=== PATIENT | male | born 1975 | race Caucasian/White ===

== ENCOUNTER 2016-12-09 16:58 | Observation (INO) | payer OTHER ==
[~2016-12-09] VITALS: Ht 167.6 cm; Wt 70.2 kg
--- NOTE | 2016-12-09 17:09 | ED.REPORT ---
HPI-Stroke / CVA Dec 09, 2016 ED Provider: Jesús Daniel MD Pt is a 40y.o. male with a hx of ESRD and [place] who presents to the ED from hemodialysis c/o slurred speech last known normal at 1530. Pt reports associated dysphasia. He denies taking blood thinners. Pt was unable to complete his hemodialysis treatment today due to his sx. Nursing Notes Stated Complaint: SPEECH PROBLEMS Nursing Notes Reviewed: Yes Allergies: Coded Allergies: No Known Allergies (Unverified , 12/09/16) Scheduled Amlodipine (Amlodipine) 5 Mg Tablet 5 MG PO BID (Reported) Aspirin (Aspirin) 81 Mg Tablet 81 MG PO DAILY (Reported) Atorvastatin (Lipitor) 40 Mg Tablet 40 MG PO DAILY (Reported) Calcium Acetate (Calcium Acetate) 667 Mg Capsule 667 MG PO TID (Reported) Calcium Carbonate/Vitamin D3 (Calcium 600 + Vit D3 400 Tab) 600 Mg-400 Tablet 1 EACH PO DAILY (Reported) Carvedilol (Carvedilol) 12.5 Mg Tablet 12.5 MG PO BID (Reported) Clopidogrel (Clopidogrel) 75 Mg Tablet 75 MG PO DAILY (Reported) Isosorbide MN ER (Isosorbide MN ER) 30 Mg Tab.er.24h 30 MG PO DAILY (Reported) Prednisone (PredniSONE) 20 Mg Tablet 40 MG PO DAILY (Reported) Ranitidine (Ranitidine) 150 Mg Capsule 150 MG PO HS (Reported) Scheduled PRN hydrOXYzine Hcl (HydrOXYzine Hcl) 25 Mg Tablet 25 MG PO BID PRN PRN For Itching (Reported) oxyCODONE-Acetaminophen 5-325 mg (oxyCODONE-Acetaminophen 5-325 mg) 1 Each Tablet 1-2 TAB PO TID PRN PRN For Pain (Reported) Miscellaneous Medications Febuxostat (Uloric) 40 Mg Tablet 40 MG PO (Reported) General Time Seen by Provider: 17:02 Chief Complaint Slurred speech Hx Obtained From: Patient Arrived By: Walk-in Time last known well 1530 Sudden in Onset?: Yes Progression Since Onset: Gradually improving Severity: Current: No pain currently Recent Healthcare: No recent hospitalization Similar Sx Previous: No Risk Factors NIH Stroke Scale Level of Consciousness: Alert and responsive (0) Ask Month & Age: Both questions right (0) Open/Close Eyes/Hand Eligibility Consultant: Performs both tasks (0) Horizontal EO Movements: None (0) Visual Olivera: No visual loss (0) Facial Palsy: Normal symmetry (0) Right Arm Motor Drift (10s): No drift 10 sec (0) Left Arm Motor Drift (10s): No drift 10 sec (0) Right Leg Motor Drift (5s): No drift 5 sec (0) Left Leg Motor Drift (5s): No drift 5 sec (0) Limb Ataxia FNF/Heel-Perla: No ataxia (0) Sensation (Arms/Legs/Face): No sensory loss (0) Language Aphasia: Loss fluency ID matls (1) Dysarthria: No dysarthria, normal (0) Extinction/Inattention: No exctinct/inattent (0) NIHSS Score: 1 Time NIHSS Performed: 17:12 Date NIHSS Performed: Dec 09, 2016 Past Medical History Past Medical History ESRD on hemodialysis [place] x2 Social History Other Social History: Good social support Ambulatory Status Independent Review of Systems Dysphasia Neurologic: Reports: Slurred speech Complete sys rev & neg: except as marked. Physical Exam Initial Vital Signs Vital Signs (First) Date Time Temp Pulse Resp B/P Pulse Ox O2 Delivery O2 Flow Rate FiO2 12/09/16 17:12 36.9 99 24 142/87 100 Room Air Initial VS: Reviewed Abdomen / GI: Soft, Non-tender, No distention Extremities: Vascular intact, Neuro intact Skin: Warm, Dry, No cyanosis General/Constitutional: Awake, Alert, No acute distress, Well appearing, Well developed, Well hydrated, Well nourished, Not toxic appearing Head / Eyes: Atraumatic, Normocephalic, PERRL Neck: Atraumatic Respiratory / Chest: Atraumatic, Breath sounds NL, Breath sounds = bilat, No respiratory distress, No rales, No rhonchi, No wheezing, No retractions, No stridor Cardiovascular: Heart rate NL, Regular rhythm, Heart sounds NL, No gallop, No murmurs, No rubs, Peripheral circulation NL Neurologic: Oriented X3, No motor deficits, No sensory deficits, CN II - XII intact Interpretation & Diagnostics PROCEDURE: CT ANGIO BRAIN NECK TPA IMPRESSION: Normal examination, findings called to the emergency room physician caring for the patient at this time. Dictated by: Jabier Jackson M.D. on 12/09/2016 at 19:05 Approved by: Jabier Jackson M.D. on 12/09/2016 at 19:08 Lab Results Interpretation Result Diagram: 12/09/16 1717 12/09/16 1717 Test 12/09/16 17:17 12/09/16 17:20 12/09/16 19:10 White Blood Count 7.6th/mm3 (3.8-10.1) Red Blood Count 3.81mil/mm3 (4.40-5.80) Hemoglobin 10.9g/dL (13.8-17.2) Hematocrit 35.8% (41.0-50.0) Mean Corpuscular Volume 94.0fL (81-100) Mean Corpuscular Hemoglobin 28.6pg (27.0-35.0) Mean Corpuscular Hemoglobin Concent 30.4% (32.0-37.0) Red Cell Distribution Width 16.9% (12.3-15.4) Platelet Count 236bil/L (150-400) Neutrophils (%) (Auto) 81% (40-74) Lymphocytes (%) (Auto) 10% (14-46) Monocytes (%) (Auto) 2% (4-12) Eosinophils (%) (Auto) 3% (0-5) Basophils (%) (Auto) 1% (0-3) Band Neutrophils % 1% (1-5) Myelocytes % 2% (0-0) Nucleated Red Blood Cells 1/100 WBC (0-24) Prothrombin Time 11.2sec (8.1-12.5) Prothromb Time International Ratio 1.05ratio Activated Partial Thromboplast Time 29.4sec (22.8-33.0) Sodium Level 134mEq/L (134-144) Potassium Level 4.6mEq/L (3.5-5.2) Chloride Level 96mEq/L (97-108) Carbon Dioxide Level 19mmol/L (18-29) Blood Urea Nitrogen 61mg/dL (6-24) Creatinine 6.07mg/dL (0.76-1.27) Estimat Glomerular Filtration Rate 11mL/min (>59) Glucose Level 245mg/dL (60-99) Calcium Level 8.3mg/dL (8.5-10.1) Total Bilirubin 0.2mg/dL (0.0-1.2) Aspartate Amino Transf (AST/SGOT) 17U/L (0-50) Alanine Aminotransferase (ALT/SGPT) 31U/L (0-44) Alkaline Phosphatase 145U/L (25-150) Total Protein 6.0g/dL (6.4-8.4) Albumin 3.3g/dL (3.4-5.0) Hold Purple Top Tube Received (Received) Hold Blue Top Tube Received (Received) Hold Red Top Tube Received (Received) Hold [place] Top Tube Received (Received) Hold [place] Top Tube Received (Received) Urine Color Yellow (YELLOW) Urine Appearance Clear (CLEAR,HAZY) Urine pH 7.0 (5.0-8.0) Urine Specific [place] 1.015 (1.003-1.035) Urine Protein 100mg/dL (NEG,TRACE) Urine Glucose (UA) 250mg/dL (NEGATIVE) Urine Ketones Negativemg/dL (NEGATIVE) Urine Occult Blood Trace (NEGATIVE) Urine Nitrite Negative (NEGATIVE) Urine Bilirubin Negative (NEGATIVE) Urine Urobilinogen Normalmg/dL (NORMAL) Urine Leukocyte Esterase Negative (NEGATIVE) Urine RBC 0-2/hpf (0-2) Urine WBC 0-5/hpf (0-5) Urine Epithelial Cells None/hpf (NONE-MOD) Urine Crystals None seen (NONE SEEN) Urine Bacteria Few/hpf (NONE-FEW) Urine Hyaline Casts None/lpf (NONE) Urine Granular Casts None seen (NONE SEEN) Urine Waxy Casts None seen (NONE SEEN) Urine Red Blood Cell Casts None seen (NONE SEEN) Urine White Blood Cell Casts None seen (NONE SEEN) Urine Mucus None seen (None Seen) Urine Trichomonas None seen (NONE SEEN) Urine Yeast None (NONE SEEN) Urinalysis Comment None Urine Culture Reflexed Not indicated ECG Interpretation ECG Interpretation: Peak T-waves V1-V3 T-wave inversion V2-V3 Time: 17:34 Interpreted by: ED physician Normal ECG Interpretation: Normal rate (99), Normal sinus rhythm CT Head Interpretation IMPRESSION: Normal for age. This information was immediately called to the emergency room physician caring for the patient at 17:20. This study fulfills neurological imaging criteria for inclusion or exclusion of acute stroke therapies based on available published neurological imaging guidelines. Dictated by: Jabier Jackson M.D. on 12/09/2016 at 17:19 Approved by: Jabier Jackson M.D. 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 Patient was sent over for evaluation immediately. Code stroke called immediately. CT brain normal. NIH stroke scale 1 for difficulty with word-finding, expressing self. [place] neurology consulted immediately who recommended not TPA candidate given low NIH stroke scale. CT angiogram brain and neck no acute pathology. Glucose 200s. Troponins 0.02. Discussed with cardiology who recommended aspirin and trending troponins. Discussed with nephrology and they will perform dialysis tomorrow. Patient admitted to hospital for CVA. Cannot r/o dialysis related. Patient's symptoms significantly improved at time of transfer and he believed he was at his baseline. Source of Hx: Old records Re-Evaluation/Progress : Time of Eval: 19:23 Re-Evaluation/Progress Note: Pt rechecked. Discussed dx and plan to admit, pt understands and agrees with plan. Pt is full code. Consultation #1: Consulted With: Neurology Call Returned at: 17:23 Note: Consulted with [place] neurology, Dr. Johnson. Determined pt is not a TPA candidate and recommended a CTA. Consultation #2: Referral / Consult Name: Suki Garza MD Consulted With: Cardiology Call Returned at: 19:15 Note: Consulted with Dr. Garza about elevated troponin. Consultation #3: Referral / Consult Name: Vu De Leon MD Consulted With: Nephrology Call Returned at: 19:17 Die Cast Die Maker: Will see patient, Agrees with eval Note: Discussed pt condition and need for dialysis, will see pt tomorrow. Consultation #4: Referral / Consult Name: Moises Tamez MD Consulted With: Hospitalist Call Returned at: 19:31 Die Cast Die Maker: Will see patient, Agrees with eval, Agrees with plan, Accepts admit Note: Discussed pt condition and consults. Accepts admit. Counseled Regarding: Diagnosis, Lab results, Need for follow-up, When/why to return to ED Patient Discharge & Departure Impression: Primary Impression: CVA (cerebral vascular accident) Additional Impression: ESRD (end stage renal disease) on dialysis Disposition: ADMITTED TO HOSPITAL Discharge Condition All VS Reviewed: Yes Condition: Stable Referrals: Lis Sandoval MD (PCP) Crit Care Except Billable Proc Time Spent: 30-74 minutes Services Performed: Patient management by me, Time spent at bedside, Reviewing test results, Reviewing imaging, Discussing patient care, Documentation in record, Time with fam/surrogate Scribe Attestation Portions of this note were transcribed by Milena Caldwell. I, Dr. Daniel personally performed the history, physical exam and medical decision-making; I reviewed and confirmed the accuracy of the information in the transcribed note. Signed by: Abhijit Valadez, 12/09/16 and 2227. copies to: Lis Sandoval MD, Ben M MD Dec 09, 2016 17:09 MILENA CALDWELL Dec 09, 2016 17:16
[2016-12-09 17:12] VITALS: BP 142/87; PULSE 99; RESP 24; O2SAT 100
--- NOTE | 2016-12-09 17:22 | DRSVH ---
PROCEDURE: CT BRAIN (TPA) ([id number]) INDICATIONS: Stroke TECHNIQUE: Noncontrast 4.5 mm thick angled axial sections acquired from the foramen magnum to the vertex, with c oronal reformats. COMPARISON: None. FINDINGS: Image quality: Excellent. CSF spaces: Basal cisterns are patent. No extra-axial fluid collections. Ventricles are normal in size and shape. Brain: No midline shift. No intracranial masses or hemorrhage. Knapp-white matter interface is norm al. Skull and face: Calvarium and visualized facial bones are intact, without suspicious lesions. Sinuses: Visualized sinuses and mastoids are clear. IMPRESSION: Normal for age. This information was immediately called to the emergency room physician caring for the patient at 17: 20. This study fulfills neurological imaging criteria for inclusion or exclusion of acute stroke therapie s based on available published neurological imaging guidelines. Dictated by: Jabier Jackson M.D. on 12/09/2016 at 17:19 Approved by: Jabier Jackson M.D. on 12/09/2016 at 17:20
[2016-12-09 17:33] VITALS: BP 139/74; PULSE 64; O2SAT 98
[2016-12-09 17:41] LABS: Mean Corpuscular Hemoglobin 28.6 pg (27.0-35.0); Platelet Count 236 bil/L (150-400)
[2016-12-09] MEDS ORDERED: CALC667C9 PO (17:50)
[2016-12-09] MEDS ORDERED: ASPI-973 PO (17:50)
[2016-12-09 17:51] LABS: INR 1.05 ratio
[2016-12-09] MEDS ORDERED: CARV12.52 PO (17:51)
[2016-12-09 18:01] LABS: TROPONIN T 0.027 ug/L (0.0-0.011)
[2016-12-09 18:09] LABS: BASOPHILS % (AUTO) 1 % (0-3); EOSINOPHILS % (AUTO) 3 % (0-5); MONOCYTES % (AUTO) 2 % (4-12); NEUTROPHILS % (AUTO) 81 % (40-74)
[2016-12-09] MEDS ORDERED: OXYC1TAB24 PO (18:12)
[2016-12-09] MEDS ORDERED: PRE20 PO (18:20)
[2016-12-09] MEDS ORDERED: RANI150C4 PO (18:20)
[2016-12-09] MEDS ORDERED: ISOS30TA4 PO (18:20)
[2016-12-09] MEDS ORDERED: AMLO5TAB2 PO (18:20)
[2016-12-09] MEDS ORDERED: FEBU40TA PO (18:20)
[2016-12-09] MEDS ORDERED: CALC-1034 PO (18:20)
[2016-12-09] MEDS ORDERED: LIP40 PO (18:20)
[2016-12-09] MEDS ORDERED: CLOP75TA28 PO (18:20)
[2016-12-09] MEDS ORDERED: HYDR-656 PO (18:20)
[2016-12-09 18:31] VITALS: BP 150/88; PULSE 108; RESP 15; O2SAT 100
--- NOTE | 2016-12-09 19:09 | DRSVH ---
PROCEDURE: CT ANGIO BRAIN NECK TPA INDICATIONS: STAT READ - CALL ED PROVIDER W/RESULTS TECHNIQUE: Pre-contrast 4.5 mm thick sections acquired from the foramen magnum to the vertex. After the adminis tration of intravenous contrast, 1 mm thick sections acquired from the aortic arch through the [place] of [place]hl. Post-contrast 4.5 mm thick sections then re-acquired from the foramen magnum to the vert ex. 3-dimensional jzarpui-bwbcslidp-eplivboaqp (MIP) and/or volume rendering reformats were acquired of the central intracranial vasculature and neck separately. For radiation dose reduction, the foll owing was used: automated exposure control, adjustment of mA and/or kV according to patient size. COMPARISON: None. FINDINGS: Image quality: Excellent. BRAIN: CSF spaces: Ventricles are normal in size and shape. Basal cisterns are patent. No extra-axial flu id collections. Brain: No midline shift. No intracranial bleeds or masses. Knapp-white matter interface appears int act. Skull and face: Calvarium and facial bones appear intact, without suspicious lesions. Orbits appear normal. Sinuses: Sinuses and mastoids are clear. HEAD CT ANGIOGRAPHY: Anterior circulation: Intracranial internal carotid arteries are normal in size and flow. The flow within the paired anterior cerebral arteries is normal and symmetric. The flow within the middle cer ebral arteries is normal and symmetric. The anterior communicating artery is seen. No aneurysms are seen. Posterior circulation: Visualized portions of the vertebral arteries demonstrate normal caliber, and join to form a normal appearing basilar artery. Flow within the posterior cerebral arteries is norm al and symmetric. No aneurysms are seen. NECK CT ANGIOGRAPHY: Carotid system: The great vessels demonstrate a conventional anatomy as they arise from the aortic a rch. The origins of the common carotid arteries appear patent. The common carotid arteries demonstr ate normal caliber and courses. The bifurcation regions are both widely patent. The internal caroti d arteries demonstrate normal calibers and courses. Posterior circulation: The origins of the vertebral arteries both appear widely patent. The more goodwin perior extracranial portions of both vertebral arteries also demonstrate normal courses and calibers. They join to form a normal appearing basilar artery. Soft tissues: Visualized neck soft tissues demonstrate no suspicious abnormalities. Bones: No suspicious bony lesions. Visualized cervical spine appears normally aligned. IMPRESSION: Normal examination, findings called to the emergency room physician caring for the patie nt at this time. Dictated by: Jabier Jackson M.D. on 12/09/2016 at 19:05 Approved by: Jabier Jackson M.D. on 12/09/2016 at 19:08
[2016-12-09 19:30] VITALS: BP 149/90; PULSE 102; RESP 23; O2SAT 99
[2016-12-09 19:44] LABS: APPEARANCE,URINE CLEAR (CLEAR,HAZY); COLOR,URINE YELLOW (YELLOW); OCCULT BLOOD,URINE TRACE (NEGATIVE); UROBILINOGEN,URINE NORMAL (NORMAL)
[2016-12-09] MEDS ORDERED: Labetalol 5 mg/mL 4 mL Inj IVPUSH PRN (20:20)
[2016-12-09] MEDS ORDERED: Alum-Mag Hydrox-Simeth 30 mL Suspension PO PRN (20:20)
[2016-12-09] MEDS ORDERED: Polyethylene Glycol (PEG) 17 Gm Powder PO PRN (20:20)
[2016-12-09] MEDS ORDERED: Ondansetron 2 mg/mL 2 mL Inj IV PRN (20:20)
[2016-12-09] MEDS ORDERED: hydrOXYzine Pamoate 25 mg Capsule PO PRN (21:20)
[2016-12-09] MEDS ORDERED: oxyCODONE-Acetamin 5-325 mg Tablet PO PRN (21:20)
--- NOTE | 2016-12-09 21:24 | PCM.HPMED ---
Subjective Date of Service Dec 09, 2016 Primary Provider: Admitting Physician: Moises Tamez MD Primary Care Physician: Lis Sandoval MD Attending Physician: Moises Tamez MD Chief Complaint: Aphasia History of Present Illness: Patient is a 40 year old male with a history of ESRD on HD, HTN, CAD and gout. He presented to [facility] on 12/09/16 from the Dialysis Center. He reports that he began having aphasia around 3:30 PM. He describes it as having the words in his brain but having great difficulty saying them aloud. His speech was also reportedly slurred. He took [facility] to the dialysis center from his home. Once there the nurses also noted his difficulty speaking. The concern was that he was having a stroke so he was brought to the ED for further work-up (no HD done). He denies facial droop, weakness in the extremities, numbness, dysphagia. He has not been ill lately. He denies headache, vision changes, chest pain, abdominal pain, nausea, vomiting, diarrhea. He has chronic lower extremity edema and reports that has not been worse in the last week or so. Patient has a hereditary kidney disorder but cannot specifically name it. He has been on HD for about three weeks. Currently, has a right tunneled catheter for access with plans for fistula consultation on December 19, 2016. In the ED the patient is afebrile with heart rate 99, respiratory rate 24, blood pressure 142/87, and O2 saturation 100% on room air. Labs remarkable for hemoglobin 10.9, BUN 61, creatinine of 6.07, blood glucose 245, and troponin 0.027. CT/CTA done from the ED with no acute abnormality noted. Patient's symptoms improved in the ED. Case discussed via telemedicine with [place] and patient was not a tPA candidate. Patient admitted to complete stroke work-up. Will get dialysis tomorrow with orders from Dr. Hawkins. Review of Systems: A comprehensive review of systems was conducted with the patient and found to be negative except as above in the history of present illness. Allergies Coded Allergies: No Known Allergies (Unverified , 12/09/16) Home Medications Verified with bottles: Amlodipine 5 mg BID Aspirin 81 mg daily Atorvastatin 40 mg daily Calcium acetate 667 mg TID Calcium carbonate/Vitamin D3 600/400 mg tablet daily Carvedilol 12.5 mg BID Plavix 75 mg daily Uloric 40 mg daily Hydroxyzine 25 mg BID PRN itching Isosorbide mononitrate ER 30 mg daily Oxycodone-acetaminophen 5/325 mg TID PRN pain Prednisone 40 mg daily Ranitidine 150mg HS PMH ESRD on HD Hereditary kidney disease (no more specific information could currently be obtained) Hypertension Gout CAD with [place] August 2016 - medical management Surgical History Tunneled catheter placement (October 2016) Family History No known family history of stroke Mom - of complications of CHF Dad - CAD/[place] Social History Hx Alcohol Use: No Hx Substance Use: No Hx Tobacco Use: Yes Smoking Status: Former Smoker (Quit 20+ years ago; smokes one cigar per year) Living Arrangement: with Family (, 3 kids) Exam Vital Signs Vital Sign - Last Date Time Temp Pulse Resp B/P Pulse Ox O2 Delivery O2 Flow Rate FiO2 12/09/16 19:30 102 23 149/90 99 Room Air 12/09/16 18:31 37.0 Exam Alert and oriented x3, no acute distress Head atraumatic, normocephalic PERRLA, EOMI, sclera anicteric Mucus membranes moist, no oral thrush observed No cervical lymphadenopathy, neck supple, nontender No JVD noted Cardiac tones regular rate and rhythm with no murmur appreciated Lungs clear to auscultation bilaterally with adequate respiratory effort No abdominal tenderness, non-distended, normoactive bowel tones, soft Guevara absent Radial pulses normal and equivalent bilaterally, dorsalis pedis pulses normal and equivalent bilaterally No cyanosis, clubbing; Mild pitting edema in both lower extremities No ulcerations/open wounds Cranial nerves appear to be fully intact, normal speech, Lab and Diagnostics Result Diagram: 12/09/167 12/09/16 1717 X-Rays, CTs and MRIs CT Brain: IMPRESSION: Normal for age. This information was immediately called to the emergency room physician caring for the patient at 17:20. This study fulfills neurological imaging criteria for inclusion or exclusion of acute stroke therapies based on available published neurological imaging guidelines. Dictated by: Jabier Jackson M.D. on 12/09/2016 at 17:19 CTA Head and Neck: IMPRESSION: Normal examination, findings called to the emergency room physician caring for the patient at this time. Dictated by: Jabier Jackson M.D. on 12/09/2016 at 19:05 12-lead ECG Rate: 99 QTc: 457 Sinus rhythm, no acute ischemic changes noted Assessment & Plan Patient is a 40 year old male with a history of ESRD on HD, HTN, CAD and gout. He presented to [facility] on 12/09/16 from the Dialysis Center. 1. Aphasia, acute, present on admission. - Possible CVA/TIA. - CT brain and CTA head/neck with no acute abnormality. - MR stroke protocol ordered and pending. - Patient reports recent echo at [facility] (October 2016). Have asked for those records. Will not yet order echo until we get records. Please follow up in AM. - Full dose aspirin ordered. - Continue atorvastatin 40 mg HS. - Physical therapy, speech therapy, and occupational therapy ordered and pending. 2. ESRD on HD, chronic. - Secondary to hereditary kidney disease. - HD not completed today - // is usual schedule. - Dr. Hawkins has been consulted and we appreciate her consultation. 3. Hypertension, chronic, presume stable. - Continue amlodipine 5 mg BID starting tomorrow AM. 4. CAD, chronic, presume stable. - Medical management. - Continue statin, Plavix 75 mg daily, carvedilol 12.5 mg BID, Isosorbide mononitrate ER 30 mg daily. 5. Gout, chronic, presume stable. - Continue Uloric 40 mg daily, prednisone 40 mg daily. 6. GERD, chronic, presume stable. - Continue ranitidine 150 mg HS. 7. Elevated troponin, acute, present on admission. - May be elevated secondary to ESRD. No complaints of chest pain or SOB. EKG reassuring with no acute ischemic changes. - Trending troponin. - Repeat EKG if any concerning chest pain arises. - Antiemetic available PRN. - Bowel regimen available PRN. - Hydroxyzine 25 mg BID PRN itching - Oxycodone-acetaminophen 5/325 mg TID PRN pain Patient admitted under observation status with expected length of stay less than 2 midnights for severity of present symptoms, complexities of treatment plan and risk for adverse events. PCP: to establish care with Lis Sandoval MD VTE Prophylaxis: SCDs Resuscitation Status: CPR: Attempt Resuscitation Attending Statement The patient was seen and examined together with Dr. Willis on 12/09 and I agree with the history, exam and plan as outlined in the note above. copies to: Lis Sandoval MD, Jennifer E DO Dec 09, 2016 20:43 Moises Tamez MD Dec 10, 2016 00:48
[2016-12-09 23:45] VITALS: PULSE 88
--- NOTE | 2016-12-09 23:50 | NUR ---
Admission pt arrived to 3031 around 23:50 from the ED. A&Ox3, denies pain. Neuro assessment significant for mumbled speech at times, pt able to use correct word, but it does take a little time to annunciate. no other neuro deficits assessed. VSS, afebrile, on Ra. call light placed within reach. Med Rec completed prior to pt arriving to [facility]. home meds sent to pharmacy.
[2016-12-10 00:17] VITALS: BP 136/79; PULSE 89; RESP 18; O2SAT 98
[2016-12-10 04:47] VITALS: BP 127/84; PULSE 78; RESP 18; O2SAT 97
[2016-12-10 07:13] LABS: Mean Corpuscular Hemoglobin 29.1 pg (27.0-35.0); Mean Corpuscular Volume 94.7 fL (81-100); Platelet Count 225 bil/L (150-400)
[2016-12-10 07:43] LABS: TROPONIN T 0.03 ug/L (0.0-0.011)
[2016-12-10 07:58] LABS: Magnesium 1.8 mg/dL (1.6-2.6); Phosphorus 4.4 mg/dL (2.5-4.9)
[2016-12-10 08:23] LABS: BASOPHILS % (AUTO) 1 % (0-3); EOSINOPHILS % (AUTO) 1 % (0-5); MONOCYTES % (AUTO) 8 % (4-12); NEUTROPHILS % (AUTO) 66 % (40-74)
[2016-12-10] MEDS ORDERED: VITAMIN D3 PO SCH (08:30)
[2016-12-10] MEDS ORDERED: Isosorbide Mononitrate 30 mg ER24 Tablet PO SCH (08:30)
[2016-12-10] MEDS ORDERED: [UNRECOGNIZED DRUG - OTHER] PO SCH (08:30)
[2016-12-10] MEDS ORDERED: predniSONE 20 mg Tablet PO SCH (08:30)
[2016-12-10] MEDS ORDERED: CALCIUM CARBONATE PO SCH (08:30)
--- NOTE | 2016-12-10 08:58 | NUR ---
Neuro, labs results, off floor for dialysis Patient's speech is clear this AM, no slurring or word searching noted. Lab reports creat is 6.49 this AM. Patient off floor at 0835 to [facility] for dialysis. Chart with patient, bus driver/monitor aware, AM meds held per rigger.
--- NOTE | 2016-12-10 09:03 | DRSVH ---
PROCEDURE: MRI BRAIN WITHOUT CONTRAST ([id number]) INDICATIONS: Aphasia - concern for CVA TECHNIQUE: Noncontrast axial T1 spin echo, axial T2 fast spin echo, sagittal and axial FLAIR, coronal T2 fast sp in echo, axial gradient echo, axial diffusion and ADC through the brain. COMPARISON: [facility], CT, BRAIN (TPA), 12/09/2016, 17:07. FINDINGS: Image quality: Excellent. CSF Spaces: Basal cisterns are patent. No extra-axial fluid collections. Ventricles are normal in size and shape. Brain: No intracranial masses or hemorrhage. Knapp/white matter interface is normal. Brainstem appe ars normal. Diffusion-weighted images demonstrate no acute ischemic insult. No chronic ischemic ins ults. Normal intravascular flow voids are present. Skull and face: Calvarium has normal marrow signal. Orbits appear normal. Sinuses: Sinuses and mastoids are clear. IMPRESSION: 1. No acute intracranial disease process. 2. No areas of acute or chronic infarction. 3. No intracranial hemorrhage. Dictated by: Jana Talley MD, PhD on 12/10/2016 at 8:55 Approved by: Jana Talley MD, PhD on 12/10/2016 at 9:02
--- NOTE | 2016-12-10 13:31 | PCM.CHPMED ---
Subjective Date of Service: Dec 10, 2016 Primary Physician: Admitting Physician: Moises Tamez MD Primary Care Physician: Lis Sandoval MD Attending Physician: Moises Tamez MD Chief Complaint: Chief Complaint: ESRD on HD. . History of Present Illness: Nephrology Consultation Note: Attending Dr. Hawkins Dusty Tobin is a 40-year-old male with a past medical history significant for chronic kidney disease recently over the last month advanced to end-stage renal disease on hemodialysis, hypertension, coronary artery disease status post MD medically managed, and gout who presented to [facility] ED on 12/09/2016 from the dialysis center for aphasia, trouble with word finding, and TIA like symptoms. He began having aphasia around 3:30 PM on 12/09/16 and it lasting several hours. He reports an inability to say the words he was thinking and some slurred speech. He took Dial-a-Ride to the dialysis center from his home. Once there the nurses also noted his difficulty speaking. The concern was that he was having a stroke so he was brought to the ED for further work-up without hemodialysis. He denies weakness, difficulty with coordination or balance, facial droop, headache, blurred vision, double vision, dysphagia, chest pain, numbness or tingling in upper extremities or jaw, shortness of breath, nausea, vomiting, fever, or chills. He has not been recently ill. He has chronic lower extremity edema and reports that has not been worse in the last week or so. In the ED, the patient is afebrile with heart rate 99, respiratory rate 24, blood pressure 142/87, and O2 saturation 100% on room air. Labs remarkable for hemoglobin 10.9, BUN 61, creatinine of 6.07, blood glucose 245, and troponin 0.027. CT/CTA done from the ED with no acute abnormality noted. Patient's symptoms improved in the ED. Case discussed via telemedicine with Malaysian and patient was not a tPA candidate. In regards to his chronic kidney disease, he reports that this began at the age of 17. He believes it is hereditary as his mother also had chronic kidney disease. She reports a renal biopsy in 1992 for which he is unsure of the diagnosis made at that time. He recently had a right tunneled catheter placed in October and has been on hemodialysis for approximately 3 weeks. He has plans for a fistula consultation on December 19, 2016. He denies chronic NSAID use. He reports long-standing history of hypertension since the age of 11. He reports that he has been told he was diabetic in the past but that another doctor told him he was not diabetic and he is on no medications for diabetes. He denies rashes. He does have gouty joint disease of the right third MCP and left elbow. . Review of Systems: A comprehensive review of systems was conducted with the patient and found to be negative except as above in the History of Present Illness. . PMH Past Medical History 1. Hypertension. 2. CAD status post MD August 2016 which was medically managed. 3. Gout. 4. 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 5. End-stage renal disease on HD (Friday//Friday). . Bedside Blood Glucose: 228 Surgical History 1. Reconstructive lip surgery as a toddler. 2. Renal biopsy 1992. 3. Tunnel catheter placement October 2016. . Home Medications Amlodipine 5 mg twice a day. Aspirin 81 mg daily. Atorvastatin 40 mg daily. Calcium acetate 667 mg 3 times a day. Calcium carbonate/Vitamin D3 600/400 mg tablet daily. Carvedilol 12.5 mg twice a day. Plavix 75 mg daily. Uloric 40 mg daily. Hydroxyzine 25 mg twice a day as needed for itching. Isosorbide mononitrate ER 30 mg daily. Oxycodone-acetaminophen 5/325 mg 3 times a day as needed for pain. Prednisone 40 mg daily. Ranitidine 150mg daily at bedtime. . Allergies: Coded Allergies: No Known Allergies (Unverified , 12/09/16) Family History Family History Mother who had chronic kidney disease and of complications secondary to CHF in her 60s. Father who had coronary artery disease, MD, and secondary to metastatic pancreatic carcinoma and his 80s. He has two brothers whose medical history is unknown as they do not see a physician regularly. . Social History Hx Alcohol Use: NoHx Substance Use: NoHx Tobacco Use: Yes Smoking Status: Former Smoker (1 ppd x 1 year) Living Arrangement: with Family (, 3 children) Exam Vital Signs Vital Sign - Last Date Time Temp Pulse Resp B/P Pulse Ox O2 Delivery O2 Flow Rate FiO2 12/10/16 04:47 36.4 78 18 127/84 97 12/09/16 19:30 Room Air Intake and Output 12/09/16 12/09/16 12/10/16 Cumulative From/Thru 15:00 23:00 07:00 12/09/16 16:58 - 12/10/16 06:14 Intake Total 460 ml 460 ml Balance 460 ml 460 ml Intake Oral 460 ml 460 ml # Voids 3 3 General: Alert, Oriented X3, Cooperative, No Acute Distress, Other ( chronically ill-appearing) Head: Normal Eyes: PERRLA, EOMI, Scleral Anicteric Nose: Mucous Membr Moist/[place] Mouth: Mouth Normal Neck: Supple, No Thyromegaly Chest & Lungs: Clear to auscultation & percussion, No adventitious breath sounds Cardiovascular: Regular Rate/Rhythm, Normal S1, Normal S2, No Murmurs/Rubs/ Gallops Pulses: NL carotid, radial, femoral, DP, PT Abdomen: Non-tender, Non-distended, No masses, No hepatosplenomegaly, Soft Genitourinary: Guevara Absent Musculoskeletal: Unremarkable, Normal Range of Motion Extremities: No cyanosis/clubbing/edma bilat, Normal bilaterally, Other ( tophus of the third MCP, warm with mild erythema) Neurological: Grossly Neurologically Intact, Cranial Nerves 2-12 Intact, Sensation Intact Lab and Diagnostics Labs Item Value Date Time Calcium Level 8.2 mg/dL L 12/10/16 07 Phosphorus Level 4.4 mg/dL 12/10/16 0700 Magnesium Level 1.8 mg/dL 12/10/16 0700 Result Diagram: 12/10/16 0700 12/10/16 07 X-Rays, CTs and MRIs MRI BRAIN WITHOUT CONTRAST IMPRESSION: 1. No acute intracranial disease process. 2. No areas of acute or chronic infarction. 3. No intracranial hemorrhage. Dictated by: Jana Talley MD, PhD on 12/10/2016 at 8:55 Approved by: Jana Talley MD, PhD on 12/10/2016 at 9:02 CT ANGIO BRAIN NECK TPA IMPRESSION: Normal examination, findings called to the emergency room physician caring for the patient at this time. Dictated by: Jabier Jackson M.D. on 12/09/2016 at 19:05 Approved by: Jabier Jackson M.D. on 12/09/2016 at 19:08 CT BRAIN (TPA) IMPRESSION: Normal for age. This information was immediately called to the emergency room physician caring for the patient at 17:20. This study fulfills neurological imaging criteria for inclusion or exclusion of acute stroke therapies based on available published neurological imaging guidelines. Dictated by: Jabier Jackson M.D. on 12/09/2016 at 17:19 Approved by: Jabier Jackson M.D. on 12/09/2016 at 17:20 . Assessment & Plan Assessment Dusty Tobin is a 40-year-old male with a past medical history significant for chronic kidney disease recently over the last month advanced to end-stage renal disease on hemodialysis, hypertension, coronary artery disease status post MD medically managed, and gout who presented to [facility] ED on 12/09/2016 from the dialysis center for aphasia, trouble with word finding, and TIA like symptoms. Assessment: 1. ESRD (of unknown origin) on HD. 2. TIA. Resolved. 3. Long-standing hypertension with likely hypertensive nephrosclerosis. Plan: - Patient will receive dialysis today. - Request records from renal biopsy performed in [place], [place]. Although rare may consider possible Fabry's disease as patient has early onset renal failure and heart disease. The patient denies neuropathy. - Ordered hemoglobin A1c, pending. . Problems: VTE Prophylaxis: SCDs VTE Mechanical Devices: Intermittant Pneumatic CD Resuscitation Status: CPR: Attempt Resuscitation Mely Perez DO Dec 10, 2016 13:31
--- NOTE | 2016-12-10 14:13 | PCM.DIMED ---
Discharge Instructions Date of Service Dec 10, 2016 Dates of Hospitalization Dec 09, 2016 at 19:44 Discharge Diagnosis Discharge Diagnosis TIA Diet Heart Healthy, Renal Diet Activity No restrictions Patient Instructions you were hospitalized with slurred speech, concerning for stroke. work-ups including CT of brain, CT angiogram, MRI of brain, telemetry all showed no evidence of stroke. Please note that if you have recurrent symptoms, severe degree this are warning signs of impending stroke, please return to hospital for further evaluation. Follow-up plan Please follow up with your doctor, Dr.Lin Sandoval as scheduled tomorrow Follow-up with PCP in: 1 week Queta Velazquez MD Dec 10, 2016 14:13
--- NOTE | 2016-12-10 14:42 | NUR ---
Evaluation completed. Please go to "Notes" then click on "Assessments and Notes" (bottom left corner of screen). Then select appropriate discipline tab on top of screen.
[2016-12-10 14:54] VITALS: BP 130/81; PULSE 92; RESP 18; O2SAT 100
--- NOTE | 2016-12-10 14:55 | NUR ---
STOCK REPLENISHER consult received. Pt passed RN swallow screen, and imaging (i.e., MRI and CT) was negative for infarct. Diet has been advanced by MD and discharge orders are in. STOCK REPLENISHER will sign off. Please reconsult if needed.
--- NOTE | 2016-12-10 14:58 | NUR ---
Social work-screening/discharge: Data:EMR reviewed. Pt is a 40 y/o male who was admitted on 12/09/16 for CVA per H&P. Pt's insurance is [facility] and PCP is Lis Sandoval MD. EMR reviewed. Pt resides at home where he remains independent with ADLs. PT/OT/ST have cleared pt for home no needs. Pt to discharge home today. No discharge need identified. All updated and agreeable to plan. Assessment:Pt who is independent at baseline. Plan:Pt to discharge home today via POV. No discharge need identified. All updated and agreeable to plan. LALO Chand
--- NOTE | 2016-12-10 15:57 | NUR ---
Dialysis note 4 hr HD tx. 4000ml net UF removed per pt request. See DTR for complete vitals. R tunn catheter. Dsg c/d/i. Pt stable thru tx. Dwelled with 1000/1 U Heparin and returned to floor after report given.
--- NOTE | 2016-12-10 17:34 | NUR ---
DISCHARGE Patient discharged home at 1720, off floor by wheelchair accompanied by RN. Meds returned from pharmacy. Two IVs discontinued intact. All belongings accompany patient. All instructions for diet, activity, medications and follow-up reviewed with patient who reports understanding. Vitals stable, denies pain and in no apparent distress.
--- NOTE | 2016-12-11 13:56 | PCM.DC.MED ---
Discharge Summary Date of Service Dec 10, 2016 Dates of Hospitalization Date of Hospital Admission Dec 09, 2016 at 19:44 Date of Discharge: Dec 10, 2016 Providers: Admitting Physician: Moises Tamez MD Primary Care Physician: Lis Sandoval MD Attending Physician: Moises Tamez MD Diagnosis at Time of Discharge Diagnosis at Time of Discharge 1. Aphasic episode, presumed TIA 2. ESRD on HD, 3. Hypertension, 4. CAD, 5. Gout, 6. GERD 7. Mild troponinemia, Procedures XRay, CTs & MRIs CT Brain: IMPRESSION: Normal for age. This information was immediately called to the emergency room physician caring for the patient at 17:20. This study fulfills neurological imaging criteria for inclusion or exclusion of acute stroke therapies based on available published neurological imaging guidelines. Dictated by: Jabier Jackson M.D. on 12/09/2016 at 17:19 CTA Head and Neck: IMPRESSION: Normal examination, findings called to the emergency room physician caring for the patient at this time. Dictated by: Jabier Jackson M.D. on 12/09/2016 at 19:05 ECG 12 Lead Rate: 99 QTc: 457 Sinus rhythm, no acute ischemic changes noted Other Diagnostics PROCEDURE: MRI BRAIN WITHOUT CONTRAST ([id number]) INDICATIONS: Aphasia - concern for CVA TECHNIQUE: Noncontrast axial T1 spin echo, axial T2 fast spin echo, sagittal and axial FLAIR, coronal T2 fast spin echo, axial gradient echo, axial diffusion and ADC through the brain. COMPARISON: [facility], CT, BRAIN (TPA), 12/09/2016, 17:07. FINDINGS: Image quality: Excellent. CSF Spaces: Basal cisterns are patent. No extra-axial fluid collections. Ventricles are normal in size and shape. Brain: No intracranial masses or hemorrhage. Knapp/white matter interface is normal. Brainstem appears normal. Diffusion-weighted images demonstrate no acute ischemic insult. No chronic ischemic insults. Normal intravascular flow voids are present. Skull and face: Calvarium has normal marrow signal. Orbits appear normal. Sinuses: Sinuses and mastoids are clear. IMPRESSION: 1. No acute intracranial disease process. 2. No areas of acute or chronic infarction. 3. No intracranial hemorrhage. Dictated by: Jana Talley MD, PhD on 12/10/2016 at 8:55 Approved by: Jana Talley MD, PhD on 12/10/2016 at 9:02 Brief History H&P performed by on 12/09 Patient is a 40 year old male with a history of ESRD on HD, HTN, CAD and gout. He presented to [facility]ED on 12/09/16 from the Dialysis Center. He reports that he began having aphasia around 3:30 PM. He describes it as having the words in his brain but having great difficulty saying them aloud. His speech was also reportedly slurred. He took Dial-a-Ride to the dialysis center from his home. Once there the nurses also noted his difficulty speaking. The concern was that he was having a stroke so he was brought to the ED for further work-up (no HD done). He denies facial droop, weakness in the extremities, numbness, dysphagia. He has not been ill lately. He denies headache, vision changes, chest pain, abdominal pain, nausea, vomiting, diarrhea. He has chronic lower extremity edema and reports that has not been worse in the last week or so. Patient has a hereditary kidney disorder but cannot specifically name it. He has been on HD for about three weeks. Currently, has a right tunneled catheter for access with plans for fistula consultation on December 19, 2016. In the ED the patient is afebrile with heart rate 99, respiratory rate 24, blood pressure 142/87, and O2 saturation 100% on room air. Labs remarkable for hemoglobin 10.9, BUN 61, creatinine of 6.07, blood glucose 245, and troponin 0.027. CT/CTA done from the ED with no acute abnormality noted. Patient's symptoms improved in the ED. Case discussed via telemedicine with Armenian and patient was not a tPA candidate. Patient admitted to complete stroke work-up. Will get dialysis tomorrow with orders from Dr. Hawkins. Hospital Course Patient is a 40 year old male with a history of ESRD on HD, HTN, CAD and gout. He presented to [facility]ED on 12/09/16 from the Dialysis Center. 1. Aphasic episode, this was concerning given patient's high risk of atherosclerotic burden with ESRD hypertension CAD. Patient was admitted to rule out stroke initial CT head and CT angiogram head and neck were negative. MRI brain did not show any stroke. Patient stated that symptom reoccurred once since admission, also quickly resolved, otherwise patient remained neurologically intact throughout the hospital course. Deemed safe for discharge. There was a possibility of TIA without radiologic evidence, recommended to monitor his symptoms closely, compliant to his meds. 2. ESRD on HD, chronic, patient received hemodialysis as a scheduled 3. Hypertension, continued amlodipine 5 mg BID starting tomorrow AM. 4. CAD, chronic, continued statin, Plavix 75 mg daily, carvedilol 12.5 mg BID, Isosorbide mononitrate ER 30 mg daily. 5. Gout, chronic, continued Uloric 40 mg daily, prednisone 40 mg daily. 6. GERD, chronic, continued ranitidine 150 mg HS. 7. Mild troponinemia, POA, stable, likely due to ESRD Exam Vital Signs (Last) Date Time Temp Pulse Resp B/P Pulse Ox O2 Delivery O2 Flow Rate FiO2 12/10/16 14:54 36.7 92 18 130/81 100 12/09/16 19:30 Room Air Exam NAD, comfortably laying down on the bed no JVD, MMM, no LAD RRR, nl s1, s2 no mrg CTAB, no w,c S,ND,NT,normoactive BS+ warm, no edema, pulses 2/2 Neuro:speech coherent, fluent, AAOx3 gait steady PERRLA, EOMI, symmetric face, no uvulae tongue deviation, able shrug shoulders equally able rotate neck equally on both sides FTN, dysdiadochokinesia intact, romberg negative, no pronator drift motor 5/5 throughout, sensory intact to dull touch Test 12/09/16 17:17 12/09/16 17:20 12/09/16 19:10 12/10/16 07:00 Nucleated Red Blood Cells 1/100 WBC (0-24) Prothrombin Time 11.2sec (8.1-12.5) Prothromb Time International Ratio 1.05ratio Activated Partial Thromboplast Time 29.4sec (22.8-33.0) Total Bilirubin 0.2mg/dL (0.0-1.2) Aspartate Amino Transf (AST/SGOT) 17U/L (0-50) Alanine Aminotransferase (ALT/SGPT) 31U/L (0-44) Alkaline Phosphatase 145U/L (25-150) Total Protein 6.0g/dL (6.4-8.4) Albumin 3.3g/dL (3.4-5.0) Hold Purple Top Tube Received (Received) Hold Blue Top Tube Received (Received) Hold Red Top Tube Received (Received) Hold [place] Top Tube Received (Received) Hold [place] Top Tube Received (Received) Urine Color Yellow (YELLOW) Urine Appearance Clear (CLEAR,HAZY) Urine pH 7.0 (5.0-8.0) Urine Specific [place] 1.015 (1.003-1.035) Urine Protein 100mg/dL (NEG,TRACE) Urine Glucose (UA) 250mg/dL (NEGATIVE) Urine Ketones Negativemg/dL (NEGATIVE) Urine Occult Blood Trace (NEGATIVE) Urine Nitrite Negative (NEGATIVE) Urine Bilirubin Negative (NEGATIVE) Urine Urobilinogen Normalmg/dL (NORMAL) Urine Leukocyte Esterase Negative (NEGATIVE) Urine RBC 0-2/hpf (0-2) Urine WBC 0-5/hpf (0-5) Urine Epithelial Cells None/hpf (NONE-MOD) Urine Crystals None seen (NONE SEEN) Urine Bacteria Few/hpf (NONE-FEW) Urine Hyaline Casts None/lpf (NONE) Urine Granular Casts None seen (NONE SEEN) Urine Waxy Casts None seen (NONE SEEN) Urine Red Blood Cell Casts None seen (NONE SEEN) Urine White Blood Cell Casts None seen (NONE SEEN) Urine Mucus None seen (None Seen) Urine Trichomonas None seen (NONE SEEN) Urine Yeast None (NONE SEEN) Urinalysis Comment None Urine Culture Reflexed Not indicated White Blood Count 7.2th/mm3 (3.8-10.1) Red Blood Count 2.82mil/mm3 (4.40-5.80) Hemoglobin 8.2g/dL (13.8-17.2) Hematocrit 26.7% (41.0-50.0) Mean Corpuscular Volume 94.7fL (81-100) Mean Corpuscular Hemoglobin 29.1pg (27.0-35.0) Mean Corpuscular Hemoglobin Concent 30.7% (32.0-37.0) Red Cell Distribution Width 16.8% (12.3-15.4) Platelet Count 225bil/L (150-400) Neutrophils (%) (Auto) 66% (40-74) Lymphocytes (%) (Auto) 13% (14-46) Monocytes (%) (Auto) 8% (4-12) Eosinophils (%) (Auto) 1% (0-5) Basophils (%) (Auto) 1% (0-3) Band Neutrophils % 5% (1-5) Metamyelocytes % 4% (0-0) Myelocytes % 2% (0-0) Sodium Level 137mEq/L (134-144) Potassium Level 4.9mEq/L (3.5-5.2) Chloride Level 101mEq/L (97-108) Carbon Dioxide Level 22mmol/L (18-29) Blood Urea Nitrogen 62mg/dL (6-24) Creatinine 6.49mg/dL (0.76-1.27) Estimat Glomerular Filtration Rate 10mL/min (>59) Glucose Level 107mg/dL (60-99) Hemoglobin A1c 6.1% (4.8-5.6) Calcium Level 8.2mg/dL (8.5-10.1) Phosphorus Level 4.4mg/dL (2.5-4.9) Magnesium Level 1.8mg/dL (1.6-2.6) Troponin T 0.030ug/L (0.0-0.011) Discharge Medications Discharge Medications Amlodipine (Amlodipine) 5 Mg Tablet 5 MG PO BID (Reported) Aspirin (Aspirin) 81 Mg Tablet 81 MG PO DAILY (Reported) Atorvastatin (Lipitor) 40 Mg Tablet 40 MG PO DAILY (Reported) Calcium Acetate (Calcium Acetate) 667 Mg Capsule 1,334 MG PO TID (Reported) Calcium Carbonate/Vitamin D3 (Calcium 600 + Vit D3 400 Tab) 600 Mg-400 Tablet 1 EACH PO DAILY (Reported) Carvedilol (Carvedilol) 12.5 Mg Tablet 12.5 MG PO BID (Reported) Clopidogrel (Clopidogrel) 75 Mg Tablet 75 MG PO DAILY (Reported) Isosorbide MN ER (Isosorbide MN ER) 30 Mg Tab.er.24h 30 MG PO DAILY (Reported) Prednisone (PredniSONE) 20 Mg Tablet 40 MG PO DAILY (Reported) Ranitidine (Ranitidine) 150 Mg Capsule 150 MG PO HS (Reported) As needed hydrOXYzine Hcl (HydrOXYzine Hcl) 25 Mg Tablet 25 MG PO BID PRN PRN For Itching (Reported) oxyCODONE-Acetaminophen 5-325 mg (oxyCODONE-Acetaminophen 5-325 mg) 1 Each Tablet 1-2 TAB PO TID PRN PRN For Pain (Reported) Miscellaneous Medications Febuxostat (Uloric) 40 Mg Tablet 40 MG PO (Reported) Followup Plan Disposition: Home Follow-up plan Please follow up with your doctor, Dr.Lin Sandoval as scheduled tomorrow Discharge Diet: Heart Healthy, Renal Diet Discharge Activity: No restrictions Patient Instructions you were hospitalized with slurred speech, concerning for stroke. work-ups including CT of brain, CT angiogram, MRI of brain, telemetry all showed no evidence of stroke. Please note that if you have recurrent symptoms, severe degree this are warning signs of impending stroke, please return to hospital for further evaluation. Follow-up with PCP in: 1 week Time spent 65 minutes Queta Velazquez MD Dec 11, 2016 13:56
== END 2016-12-10 17:22 | disposition home or self-care (01) ==
LOC: SED 16:58 → INTOOBSV 19:44 → MPC 19:44
PROVIDERS: ADMIT Hospitalist; ATTEND Hospitalist
DX: R47.01 Aphasia (principal); I12.0 Hypertensive chronic kidney disease with stage 5 chronic kidney disease or end stage renal disease; N18.6 End stage renal disease; I25.10 Atherosclerotic heart disease of native coronary artery without angina pectoris; M10.9 Gout, unspecified; K21.9 Gastro-esophageal reflux disease without esophagitis; R79.89 Other specified abnormal findings of blood chemistry; R47.81 Slurred speech; I25.2 Old myocardial infarction; Z99.2 Dependence on renal dialysis; Z79.82 Long term (current) use of aspirin; Z79.52 Long term (current) use of systemic steroids; Z87.891 Personal history of nicotine dependence
CPT/HCPCS: 36415; 70450; 70496; 70498; 70551; 80048; 80053; 81000; 82948; 83036; 83735; 84100; 84484; 85025; 85610; 85730; 93005; 97161; 99291; G0378; Q9967

== ENCOUNTER 2016-12-20 02:31 | Observation (INO) | payer OTHER ==
[~2016-12-20] VITALS: Ht 172.7 cm; Wt 73.8 kg
[2016-12-20] VITALS (9 sets, daily range): BP systolic 138–152; BP diastolic 74–86; PULSE 77–104; RESP 16–20; O2SAT 91–98
[~2016-12-20 02:31] MED LIST: AMLO5TAB2 PO; ASPI-973 PO; CALC-1034 PO; CALC667C9 PO; CARV12.52 PO; CLOP75TA28 PO; FEBU40TA PO; HYDR-656 PO; ISOS30TA4 PO; LIP40 PO; OXYC1TAB24 PO; PRE20 PO; RANI150C4 PO
[2016-12-20] MEDS ORDERED: Ondansetron 2 mg/mL 2 mL Inj IVPUSH PRN (04:30)
[2016-12-20] MEDS ORDERED: Alum-Mag Hydrox-Simeth 30 mL Suspension PO PRN (04:30)
[2016-12-20] MEDS ORDERED: Polyethylene Glycol (PEG) 17 Gm Powder PO PRN (04:30)
[2016-12-20] MEDS ORDERED: PRE10 PO (05:47)
--- NOTE | 2016-12-20 06:02 | NUR ---
admit note/med rec Pt arrived to room 3022 from [facility] ER around 04:05 for chest pain resolved. EMT reported pt had another episode of chest pain en route relieved by 1 SL Nitro. denies chest pain on admit. Pt A&Ox4. Tele ST 100s with IVCD per telehealth nurse educator. Pt is oriented to room, plan of care and medication policy; he verbalized understanding. Med rec done; sent to pharmacy to store.
--- NOTE | 2016-12-20 06:10 | PCM.HPMED ---
Subjective Date of Service Dec 20, 2016 Primary Provider: Admitting Physician: Margaret Lutz DO Primary Care Physician: Lis Sandoval MD Attending Physician: Margaret Lutz DO Chief Complaint: Chest pain History of Present Illness: Patient is a 40 year old male with a history of ESRD on HD, HTN, CAD and gout. He presented to [place] ED on 12/20/16 via EMS. He reports that around 9:00PM he took two Tylenol and a hydroxyzine for bedtime. Around 11:00PM he awakened feeling diaphoretic. He arouse to try to turn off the heaters in the room. To him, it felt as though his blood pressure was climbing and as it did he began to experience chest pressure. The pressure turned into pain in the left side of his chest and then began to go into his left arm. He felt his breathing was fast and shallow. He had nausea but no vomiting. He chewed a tablet of amlodipine to help his BP. This did not cause significant improvement and he called 911. In the ambulance he received a dose of nitro that helped. In the ED he received a second dose which relieved the pain. Of note, patient seen in Urgent care on 12/18/16 for gout flair. Given 14 day taper of prednisone with 1 refill. Patient reports having upcoming consultation with rheumatology and nephrology. In the ED patient was afebrile with a heart rate of 104, respiratory rate of 16 , blood pressure of 156/98 and O2 saturation of 99% on room air. Labs were remarkable for WBC 11.7, hgb 9.8, hct 29.9, BNP 2360, BUN 35, creatinine 3.5, glucose 274. EKG interpreted by ED doc showed T-wave inversion in 3 and aVF but no ST changes. It was similar to prior exams. Called Dr. Manzano who recommended transfer to [facility] for further evaluation and observation. Review of Systems: A comprehensive review of systems was conducted with the patient and found to be negative except as above in the history of present illness. Allergies Coded Allergies: No Known Allergies (Unverified , 12/09/16) Home Medications From [facility] (12/18/16): Amlodipine 5 mg BID Aspirin 81 mg daily Atorvastatin 40 mg daily Calcium acetate 667 mg TID Calcium carbonate/Vitamin D3 600/400 mg tablet daily Carvedilol 12.5 mg BID Plavix 75 mg daily Uloric 40 mg daily Hydroxyzine 25 mg BID PRN itching Isosorbide mononitrate ER 30 mg daily Oxycodone-acetaminophen 5/325 mg TID PRN pain Ranitidine 150mg HS Prednisone taper started 12/18/16: 40 mg x 4 days, 20 mg x 4 days, 10 mg x 4 days , 5 mg x2 days PMH ESRD on HD Hereditary kidney disease (no more specific information could currently be obtained) Hypertension Gout CAD with NE August 2016 - medical management Surgical History Tunneled catheter placement (October 2016) Family History No known family history of stroke Mom - of complications of CHF Dad - CAD/NE Social History Hx Alcohol Use: No Hx Substance Use: No Hx Tobacco Use: Yes Smoking Status: Former Smoker (quit 20+ years ago; one cigar per year) Living Arrangement: with Family (, 3 kids) Exam Exam Alert and oriented x3, no acute distress Head atraumatic, normocephalic PERRLA, EOMI, sclera anicteric Mucus membranes moist, no oral thrush observed No cervical lymphadenopathy, neck supple, nontender No JVD noted Cardiac tones regular rate and rhythm with no murmur appreciated Lungs clear to auscultation bilaterally with adequate respiratory effort No abdominal tenderness, non-distended, normoactive bowel tones, soft Guevara absent Radial pulses normal and equivalent bilaterally, dorsalis pedis pulses normal and equivalent bilaterally No cyanosis, clubbing; trace pitting edema in bilateral lower extremities No ulcerations/open wounds Cranial nerves appear to be fully intact, normal speech, patient can move upper and lower limbs grossly Lab and Diagnostics Labs From [facility] 12/20/16 0050: WBC 11.7 Hgb9,8 Hct 29.9 Plt 201 INR 1.0 Troponin I 0.013 (ref range 0.01-0.034) CPK <20 (ref range 55-170) BNP 2360 Sodium 141 Potassium 3.9 Chloride 96 CO2 25 BUN 35 Cr 3.5 Glucose 274 12-lead ECG 12/20/16 00:31 at [facility] Rate 115 QTc 440 Sinus tachycardia; Twave inversions seen in lead III, aVF (seen in multiple EKG dating back to 11/12/16); ST depressions in various leads (also present dating back to 11/12/16) Assessment & Plan Patient is a 40 year old male with a history of ESRD on HD, HTN, CAD and gout. He presented to [place] ED on 12/20/16 via EMS. He was reporting about 1 hour of chest pain that started with mild exertion and radiated into his left arm. Dr. Manzano was consulted from [place] ED and recommended transfer for further evaluation and observation. 1. History of CAD with acute chest pain, present on admission. - Patient with cardiac risk factors including family history, advanced kidney disease and known CAD. - No new EKG changes. Repeat in AM. Available PRN return of chest pain. - Nitro SL available PRN chest pain. - Trending troponin. CK-MB panel ordered and pending. - Echo done in October 2016 at [facility]. Believed to show no wall motion abnormalities. Will not plan to repeat at this time. - Lexiscan ordered and pending. Patient does not believe he could walk on a treadmill with his current gout flare. - Will keep patient NPO at this time in case it is determined he needs cardiac catheterization. - In the past medical management of CAD recommended with: statin, Plavix 75 mg daily, carvedilol 12.5 mg BID, Isosorbide mononitrate ER 30 mg daily. Will plan to continue those at this time. Carvedilol and isosorbide to be deferred until after stress test - will need to be re-ordered. 2. ESRD on HD, chronic. - Secondary to hereditary kidney disease. - Last HD 12/19/16. //Fri is usual schedule. - If it appears patient will stay until Friday, please consult nephrology for dialysis orders. 3. Hypertension, chronic, presume stable. - Continue amlodipine 5 mg BID. 4. Gout, acute on chronic. - Home med Uloric 40 mg daily not on formulary. - Continue prednisone taper with 40 mg daily x 2 more days. If patient still admitted would need 20 mg daily starting 12/22/16. 5. GERD, chronic, presume stable. - Home med ranitidine 150 mg HS. Continue famotidine 20 mg BID during admission. 6. Hyperglycemia, acute, present on admission. - Blood glucose not a fasting level. No known history of DM2. - Patient currently on prednisone for gout flair and this is the likely cause. - Continue to monitor BMP. - Will not plan to add insulin to inpatient meds at this time. 7. Anemia, likely chronic, presume stable. - Patient with ESRD and likely does not produce sufficient erythopoietin for RBC production. - Baseline appears to be about 9.0. - Will continue to monitor CBC. - Antiemetic available PRN. - Bowel regimen available PRN. - Tylenol available PRN mild pain, fever. Patient admitted under observation status with expected length of stay less than 2 midnights for severity of present symptoms, complexities of treatment plan and risk for adverse events. PCP Lis Sandoval MD GI Prophylaxis: H2 kiara Resuscitation Status: CPR: Attempt Resuscitation Attending Statement The patient was seen and examined together with house staff on 12/20/2016and I agree with the history, exam and plan as outlined in the note above. copies to: Lis Sandoval MD, Jennifer E DO Dec 20, 2016 04:27 Margaret Lutz DO Dec 20, 2016 06:13
[2016-12-20 06:11] LABS: TROPONIN T 0.013 ug/L (0.0-0.011)
[2016-12-20 06:22] LABS: Creatine Kinase 18 U/L (21-232)
[2016-12-20 07:09] LABS: BASOPHILS % (AUTO) 0.1 % (0-3); EOSINOPHILS % (AUTO) 0 % (0-5); MONOCYTES % (AUTO) 3.5 % (4-12); Mean Corpuscular Hemoglobin 28.3 pg (27.0-35.0); Mean Corpuscular Volume 90.1 fL (81-100); NEUTROPHILS % (AUTO) 90.6 % (40-74); Platelet Count 158 bil/L (150-400)
[2016-12-20] MEDS: predniSONE 20 mg Tablet PO SCH ×2 (08:30→22:40)
--- NOTE | 2016-12-20 10:14 | CONS ---
[address] [address] CONSULTATION REPORT PATIENT: KYA VEGA : 1975 MR#: [id number] ADMIT: 12/20/2016 JOB ID: [id number] DATE OF SERVICE: 12/20/2016 RENAL CONSULTATION: HISTORY: The patient is a very pleasant 40-year-old white male who was transferred from [facility] for chest pain and possible non-STEMI. He has a recent history of end-stage renal disease and started dialysis back in October. Renal consultation is being sought for further evaluation of his end-stage renal disease. He has a history of coronary artery disease and has had two myocardial infarctions in the past. His last one was in August of [address] [facility] and there were no interventions due to his chronic kidney disease. 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 He states that last evening at approximately 11 p.m. he got out of bed and subsequently developed a diffuse chest pressure which radiated into his left shoulder and down his left arm. This was associated with shortness of breath, pounding pulse with palpitations, nausea without vomiting but no diaphoresis. When the paramedics arrived, he was given one spray of nitroglycerin which markedly diminished the pain. In the emergency department, he received another dose of nitroglycerin with resolution of the pain. This morning, at time of my evaluation, he was pain free. As noted above, he recently started dialysis several months ago. He is unsure as to the etiology of his renal failure. However, he does state that he has some type of "hereditary kidney problem." In the , he underwent a percutaneous renal biopsy in [place] at the [facility]. He is unsure as to what the specific diagnosis of this is. He does state that his mother had a similar condition and he suspects two of his brothers have a similar condition. He denies any hearing loss in him or his family of any mental retardation or developmental delay, seizure disorder or strokes. He does state that for approximately the last 10-15 years he has had significant gout with intermittent attacks in his joints. He most recently had a flare of this and is on a steroid taper. He also states in the past he has had hematuria, proteinuria, but denies a history of any recurrent urinary tract infections, renolithiasis, or frequent use of nonsteroidal anti-inflammatories. There is no history of any hepatitis or rheumatological disease. He states that otherwise his appetite is good, he has had no severe headache, visual problems, cough, wheezing, lower extremity edema, anorexia, sleep disorders, pruritus, diarrhea, constipation or significant change in his weight. PAST MEDICAL HISTORY: Is significant for "hereditary kidney disease", end-stage renal disease, coronary artery disease with prior myocardial infarctions, hypertension with hypertensive heart disease and hypertensive nephrosclerosis, hyperlipidemia and recurrent anemia. Otherwise he denies a history of any prior stroke, seizure disorder, asthma, emphysema, rheumatic heart disease, diabetes, hepatitis, peptic ulcer disease, malignancy or thyroid illness. PAST SURGICAL HISTORY: Is significant for renal biopsy as detailed above. He is not allergic to any food or any medications. SOCIAL HISTORY: He denies the use of alcohol, tobacco or illicit drugs. FAMILY HISTORY: Significant for some type of hereditary renal disease in his mother and possibly two brothers. REVIEW OF SYSTEMS: As detailed above. MEDICATIONS: At time of my evaluation, include atorvastatin, Pepcid, prednisone, amlodipine, aspirin, Plavix. PHYSICAL EXAMINATION: Revealed a pale, well-developed 40-year-old, white male who was alert and oriented x3, in no distress at time of my evaluation. His blood pressure was 148/84 with a pulse rate of 96. HEENT examination is remarkable for pale sclerae. Neck is supple without adenopathy, thyromegaly or jugular venous distention. Lungs are clear to auscultation. Heart was regular and rhythmical with a soft systolic murmur. There was no rub, click or extra sounds noted. Abdomen is soft, without tenderness, rebound, guarding, masses or hepatosplenomegaly. There was no epigastric bruit noted. Extremities showed evidence of mild tophaceous changes on the dorsum of his right hand but no overt joint deformities were noted. There was no clubbing, cyanosis or edema. Skin turgor was good and there is no evidence of any rashes. EKG revealed normal sinus rhythm with normal axis. There were nonspecific ST-T wave changes in V2, 3 and F with small Q-waves noted. There was also evidence of left ventricular hypertrophy and a mild nonspecific intraventricular conduction delay. LABORATORY EXAMINATION: His lab on admission showed a white count of 7.5, hemoglobin 7.7, hematocrit 25.5, red cell indices and platelet count were normal. There were 90% neutrophils. Sodium is 136, potassium 4.2, chloride of 97, CO2 of 20, BUN and creatinine of 43 and 4.0. Glucose was 386. Alkaline phosphatase was 172. Albumin is 2.9. IMPRESSION: 1. End-stage renal disease-dialysis dependent. 2. Hereditary nephritis, not otherwise specified. 3. Acute myocardial infarction. 4. Hypertension with hypertensive heart disease and hypertensive nephrosclerosis. 5. Hyperglycemia with probable diabetes. RECOMMENDATION: 1. I will defer the cardiac workup to Cardiology. If they wish to do a heart catheterization, I can coordinate the patient's dialysis with this. 2. During his next dialysis, I would like to give him a unit of blood. I would also like to check a hemoglobin A1c and try to get his old records from the [facility]. Once again, I would like to thank you for allowing me to participate in care this most pleasant interesting patient. I will be following him closely with you.
[2016-12-20 10:43] LABS: INR 1.06 ratio
--- NOTE | 2016-12-20 11:01 | NUR ---
Social Work: Screening / Readiness for d/c Data: Pt is a 40 y/o male admitted for chest pain. Pt's PCP is Dr Sandoval, pt's insurance is [facility]. EMR reviewed. Pt discussed in rounds, possible d/c today or tomorrow. No d/c planning needs anticipated at this time. SINGLE STROKE PREFORMER will continue to follow if needs arise. Assessment: Pt who is independent at baseline. Plan: Pt will either d/c home today or tomorrow. No d/c planning needs anticipated at this time. SINGLE STROKE PREFORMER will continue to follow if needs arise. LALO White
[2016-12-20 11:08] LABS: Unsaturated Iron Binding 36.6 ug/dL
--- NOTE | 2016-12-20 13:24 | NUR ---
Off floor to nuc med Patient off floor at 1325 to nuc med. VSS, denies CP, pressure and in no apparent distress. Chart with patient. Tele is sinus 103 with occasional PACs per tech. soil field technician aware that patient is now off tele.
--- NOTE | 2016-12-20 19:37 | DRSVH ---
PROCEDURE: 1 DAY PHARMACOLOGICAL STRESS TEST INDICATIONS: chest pain COMPARISON: None. Radiopharmaceutical: Stress dose 25.6 mCi of technetium 99 tetrofosmin Stress dose 8.8 mCi of technetium 99 tetrofosmin. Patient presentation: 40 year-old man with cardiomyopathy diagnosed at [facility] in October 2016. h e has end-stage renal disease due to glomerulonephritis FINDINGS: Pharmacologic stress test: Following informed consent Lexisca was infused per protocol. Patient had o ccasional PVCs during stress test. There is normal axis, and the left ventricular hypertrophy no sign ificant ST segment changes. Raw data: Normal myocardial tracer uptake. Lung hydration appears grossly normal. Quantitative gated SPECT: At peak stress ejection fraction is 34%. Severely dilated left ventricle; e nd diastolic volume of 143 mL. rest ejection fraction is 34% with end diastolic volume of 253 mL. Myocardial perfusion imaging: There is a large size severe intensity fixed inferior perfusion defect. It spreads from base to distal inferior segment. There is no reversibility present. It is somewhat i mproved but not completely resolved by placing the patient in prone position. It could be due to prio r completed inferior infarct. Alternatively diaphragmatic attenuation cannot be excluded. IMPRESSION: Abnormal pharmacologic stress test for myocardial perfusion imaging. Moderately reduced left ventricular systolic function on rest and stress images. EF is 34%. There ar e focal wall motion abnormalities involving inferior wall and inferior septum. There is large size severe intensity fixed inferior perfusion defect which is most likely due to comp leted inferior infarct. diaphragmatic attenuation cannot be excluded. Dictated by: Suki Garza M.D. on 12/20/2016 at 19:29 Approved by: Suki Garza M.D. on 12/20/2016 at 19:36
[2016-12-20] MEDS: Insulin Human REGular 300 Unit/3 mL Inj SUBQ SCH (21:01)
--- NOTE | 2016-12-20 22:55 | NUR ---
Pain/Medications/Care Patient has had no complaints of chest pain or shortness of breath this shift. RA sats in mid-90's. Administered 40mg Prednisone for gout pain in right fingers and left knee. Patient was out and missed 12/20/16 a.m. dose, so administered 12/21/16 dose tonight. Patient getting insulin coverage q6H for high blood glucose levels. Was 365 this evening. Patient dialysis dependent, Friday, , Friday. Dr. blayne Holder in the morning, no dialysis is scheduled for tomorrow as of now.
[2016-12-21] VITALS (7 sets, daily range): BP systolic 139–147; BP diastolic 84–94; PULSE 91–104; RESP 18; O2SAT 92–100
[2016-12-21] MEDS: Insulin Human REGular 300 Unit/3 mL Inj SUBQ SCH ×3 (02:42→11:35)
--- NOTE | 2016-12-21 04:56 | CONS ---
[address] [address] CONSULTATION REPORT PATIENT: KYA EVGA : 1975 MR#: [id number] ADMIT: 12/20/2016 JOB ID: [id number] DATE OF SERVICE: 12/20/2016 CHIEF COMPLAINT: Chest pain. HISTORY OF PRESENT ILLNESS: The patient is a 40-year-old man with chest pain. Most recent episode occurred at 2-4 a.m. on December 20, 2015. He was apparently in bed when suddenly he developed severe chest pain. It was associated with dizziness. Pain was improved by sublingual nitroglycerin. The pain lasted about 30 minutes. He says that it was nonradiating and not associated with nausea. He reports that he has multiple health problems including end-stage renal disease and started hemodialysis fairly recently within the past month. He reports that he has dizziness right after hemodialysis is over and sometimes when he is actually outside waiting for a ride after dialysis he feels lightheaded. Cardiology is consulted to assist with management. PAST MEDICAL HISTORY: 1. Glomerular nephritis diagnosed in 1992 in the [facility] in [place]. He said he had a kidney biopsy but results are not available for review. He actually says he tried to obtain records about this in the past but was told that the records with destroyed and no longer available due to the time that has elapsed since the procedure. He dialyzes Friday, , and Friday. 2. Hypertension. 3. Hyperlipidemia. 4. Cardiomyopathy. Echocardiogram performed at [facility] in [place] in October 2016, demonstrated EF of about 35% with global hypokinesis and no significant valvular heart disease. 5. TIA. Hospitalized December 09 to November 20 at [facility] for slurred speech, was diagnosed with TIA but actually a brain MRI showed no acute intracranial process and no area of acute or chronic infarction. 6. 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 7. Coronary artery disease. He says he has never been cathed. He was diagnosed while living in the [facility] with his in-laws about August 2016. This was under the care of a cigarette packing machine operator in the [facility] and was treated medically which completely alleviated his chest discomfort. PAST SURGICAL HISTORY: Tunneled catheter placement in [facility], October 2016. FAMILY HISTORY: No family history of stroke. Mom of complications of heart failure. Dad had coronary artery disease and a heart attack. SOCIAL HISTORY: He is a former smoker. He quit 20 years ago. He lives with his . His children right now resides with his in-laws in the [facility]. ALLERGIES: No known drug allergies. HOME MEDICATIONS: 1. Aspirin 81 mg daily. 2. Lipitor 40 mg daily. 3. Plavix 75 mg daily. 4. Amlodipine 5 mg twice daily. 5. Carvedilol 12.5 mg twice a day. 6. Imdur 30 mg daily. 7. Renvela 800 mg 3 times a day. 8. Uloric 40 mg daily. 9. Prednisone 40 mg daily. 10. Zantac 150 mg twice a day. REVIEW OF SYSTEMS: He denies any bright red blood per rectum, hematuria, dysphasia. Chest pain is noted as outlined in history present illness otherwise. He also reports severe pain in his legs and feet which he attributes to gout. He denies any heartburn. Otherwise 10 point review of systems is negative. PHYSICAL EXAMINATION: Very pleasant man. Eyes: No scleral icterus. Neck is supple. No carotid bruits. Heart: Normal S1, S2. No murmurs. Lungs are clear anterior. Abdomen is soft with positive bowel sounds. No hepatosplenomegaly. Extremities show no edema. Musculoskeletal exam shows areas of tophaceous gout on his extensor surfaces, but there is no tenderness to palpation at this time. DIAGNOSTIC STUDIES: EKG shows normal sinus rhythm, occasional PVCs, normal axis. No left ventricular hypertrophy. There are no significant ST-segment changes and there are small Q-waves in leads III and aVF. There is poor R-wave progression in precordial leads. Otherwise EKG is normal. A stress test, I have personally reviewed. It showed a large size severe intensity fixed inferior perfusion defect, most likely due to completed inferior infarct but residual viability can not be excluded There was moderately reduced LV systolic function with ejection fraction of 34% and there were focal wall motion abnormalities involving inferior wall. Echo most recently was performed at [facility] where he was hospitalized November 15 through November 20, 2015. it showed on the last study has global hypokinesis. ASSESSMENT AND PLAN: This is a 40-year-old man. He has not been diagnosed with coronary artery disease in the [place] but was treated medically. This is happening in the setting of multiple CAD risk factors including hypertension (remains uncontrolled), hyperlipidemia (lipid requested from [facility], but not available at present) and renal insufficiency. He has had renal insufficiency for at least 24 years and has been on dialysis for about two weeks. He actually showed me the medications he was put on in the [facility] and he was started on a very prudent medication regimen in my opinion, and he think they did an excellent job managing his symptoms medically. He was started on bisoprolol, amlodipine, isosorbide mononitrate and clonidine. Now his regimen has evolved and he is no longer on clonidine. Bisoprolol has been switched over to carvedilol, but it is kind of interesting to me that now he is already doing dialysis, but he has not been started on YUNG inhibitor. I think this would be probably beneficial to him to strengthen his heart by starting YUNG inhibitor. The patient was treated with medication called Trimetazidine in the [facility]. It is not something that is commercially available in the [place] and the data on this particular medication is scant in our country. So, he is not taking it anymore. The patient reports that the morning of developing chest pain, he was on hemodialysis, was feeling unwell and he does not think he took his morning medications. He believes he did not take his morning amlodipine or his morning carvedilol, but he is not 100% sure whether that was the trigger for his chest pain episode. PLAN: I recommend for this patient to undergo cardiac catheterization. His stress test is intermediate risk and is abnormal and shows evidence of infarct in the RCA distribution. That is what the stress test showed, but it could be that he has ischemia and it could be that the RCA distribution is viable. He tells me that he has an important function to attend to on December 21, 2016 and strongly desires to have outpatient cardiac catheterization. So I will discuss the risks and benefits of that arrangement. I think is not unreasonable. His troponin elevation is quite mild with peak value of 0.016 in the setting of end-stage renal disease. We can certainly arrange for him to have cardiac catheterization as an outpatient. Anti-platelet therapy: He is anemic. His MCV is normal. It is possible that he had anemia of chronic disease in the setting of renal insufficiency. I do not think he needs to be on dual antiplatelet therapy at the juncture. I think the benefits are lower than the risks. I think he should just take Plavix 75 mg daily and I think that would be enough for his coronary artery disease or presumed coronary artery disease, until such time as an intervention is completed. Hyperlipidemia. I do not see any recent lipids available for review. I will research that in his [facility] records. Cardiomyopathy. He desires to be managed medically. He is already taking amlodipine 5 mg daily and carvedilol 12.5 mg daily. I think it would be reasonable to start him on YUNG inhibitors such as lisinopril 5 mg daily and titrate it up to maximize YUNG inhibitor dosing. I appreciate Dr. Harp's expertise and his attention to patient's anemia. I will give patient the option to undergo inpatient cath versus outpatient elective, right and left heart catheterization, and see what he says. Thank you very much for the opportunity to participate in his care. KETAN
[2016-12-21 06:33] LABS: APPEARANCE,URINE CLEAR (CLEAR,HAZY); COLOR,URINE STRAW (YELLOW); OCCULT BLOOD,URINE TRACE (NEGATIVE); PH,URINE 6.5 (5.0-8.0); UROBILINOGEN,URINE NORMAL (NORMAL)
[2016-12-21 06:59] LABS: BASOPHILS % (AUTO) 0.1 % (0-3); EOSINOPHILS % (AUTO) 0 % (0-5); Mean Corpuscular Hemoglobin 28.5 pg (27.0-35.0); Mean Corpuscular Volume 89.1 fL (81-100); NEUTROPHILS % (AUTO) 91.8 % (40-74); Platelet Count 253 bil/L (150-400)
[2016-12-21] MEDS ORDERED: Isosorbide Mononitrate 30 mg ER24 Tablet PO SCH (07:30)
--- NOTE | 2016-12-21 11:55 | PCM.PNMED ---
Subjective Date of Service Dec 21, 2016 Subjective Patient is doing better today; over the night he had one episode of some mild chest pressure but when awake quite quickly. Review Dr. Garza's stress test reading and she wishes to follow up with him sometime in the next week or so. From my point of view he can be discharged whenever Dr. Garza and the primary team say that he is ready. Otherwise he will continue his dialysis treatment today. Exam Vital Signs Vital Sign - Last Date Time Temp Pulse Resp B/P Pulse Ox O2 Delivery O2 Flow Rate FiO2 12/21/16 10:36 96 12/21/16 10:26 36.5 18 139/86 97 Room Air 12/20/16 13:12 2.00 Intake and Output 12/20/16 12/20/16 12/21/16 Cumulative From/Thru 15:00 23:00 07:00 12/20/16 04:23 - 12/21/16 03:01 Intake Total 0 ml 673 ml 673 ml Output Total 250 ml 860 ml 1110 ml Balance -250 ml -187 ml -437 ml Intake Oral 0 ml 673 ml 673 ml Output Urine Total 250 ml 860 ml 1110 ml # Bowel Movements 0 0 Exam Patient is quite pale. Neck is supple without adenopathy, thyromegaly, or drug use distention. Lungs are clear to auscultation. Heart is regular with a soft systolic murmur. Abdomen soft without tenderness rebound guarding masses or hepatosplenomegaly. Extremities transient clubbing, cyanosis, or edema. Lab and Diagnostics Result Diagram: 12/21/1662012/21/16620 12-lead ECG 12/20/16 00:31 at [facility] Rate 115 QTc 440 Sinus tachycardia; Twave inversions seen in lead III, aVF (seen in multiple EKG dating back to 11/12/16); ST depressions in various leads (also present dating back to 11/12/16) Assessment & Plan Impression #1 end-stage renal disease dialysis dependent #2 hereditary nephritis not otherwise specified AICD 10 code in 07. #3 hypertension with hypertensive heart disease and hypertensive nephrosclerosis #4 anemia secondary to chronic kidney disease Recommendations #1 history dialyzed today for 4 hours on the revaclear max dialyzer, 3 potassium bath, 1500 units of heparin as a bolus and 500 mg will attempt to take 1-2 kg off. GI Prophylaxis: H2 kiara VTE Mechanical Devices: Intermittant Pneumatic CD Resuscitation Status: CPR: Attempt Resuscitation Rafal Harp DO Dec 21, 2016 11:55
[2016-12-21] MEDS ORDERED: LISI-571 PO (12:03)
--- NOTE | 2016-12-21 12:07 | PCM.DIMED ---
Discharge Instructions Date of Service Dec 21, 2016 Dates of Hospitalization Dec 20, 2016 at 04:20 Discharge Diagnosis Discharge Diagnosis 1. History of CAD with acute chest pain, present on admission. 2. ESRD on HD, chronic. 3. Hypertension, chronic, 4. Gout, acute on chronic. 5. GERD, chronic, 6. Hyperglycemia, acute, 7. Anemia, likely chronic, Medication Instructions Continue your home medications as previously prescribed We have started you on a blood pressure pill called Lisinopril. Please take this daily. Continue to taper off the Prednisone also. Diet Renal Diet Activity No restrictions Call your provider Fever or Chills, Shortness of breath, Bleeding, Chest pain, Weakness (unilateral ) Patient Instructions You are being discharged home today. Dr. Garza and the cardiology department will schedule you for an outpatient cath procedure this week. Please follow up with your primary care doctor in 1 week also. Resume your regular dialysis schedule. Follow-up Provider: Lis Sandoval MD Follow-up with PCP in: 1 week Provider: Suki Garza MD Follow-up in: 1 week Paco Banks DO Dec 21, 2016 12:07
--- NOTE | 2016-12-21 13:15 | PROG NOTE ---
[address] [address] PROGRESS NOTE PATIENT: KYA VEGA : 1975 MR#: [id number] ADMIT: 12/20/2016 JOB ID: [id number] DATE: 12/21/2016 SUBJECTIVE: He is feeling fine. He has not had any more chest pain. PHYSICAL EXAMINATION: Temperature 36.5, blood pressure 139/86 up to 147/94. His pulse is 91 up to 104 beats per minute and he is satting 92% to 97% on room air. CURRENT MEDICATIONS: 1. Plavix 75 mg daily. 2. Lisinopril 5 mg daily. 3. Imdur 30 mg daily. 4. Amlodipine 5 mg twice a day. 5. Carvedilol 12.5 mg twice a day. 6. Prednisone. 7. Lipitor 40 mg daily. 8. PhosLo three times a day. 9. Pepcid 20 mg twice a day. PLAN: The patient says he has an important function to attend and as a result he is not quite interested in sitting here until Friday to get his catheterization. I think that is reasonable. We will make arrangements for him to undergo cardiac catheterization as an outpatient. It will be both right and left heart catheterization to evaluate him for his hemodynamic status. I can try to do it via a radial approach and right IJ approach, but I am not sure how that will play out with his anticipated fistula, so I have to think about it some more. We can certainly use a femoral approach. I did an Kristian's test in the hospital and it is reassuring. In the interim I instructed him to be compliant with his medications and I will have him sign the consent before he leaves the premises. Thank you very much for the opportunity to participate in his care.
--- NOTE | 2016-12-21 14:41 | NUR ---
Pt arrived to [facility]: Pt arrived to [facility] for dialysis. Report obtained from Tamica Fletcher RN. consulting technical manager aware of transfer. Pt appears stable at this time. Addendum: 12/21/16 at 1649 by MILTON EDWARDS RN Pt returned to [facility] after dialysis treatment. Pt tolerated treatment. Report called to Tamica Fletcher RN. Pt appears stable at time of transfer. consulting technical manager aware of return to [facility].
--- NOTE | 2016-12-21 14:58 | NUR ---
Social Work: Discharge Data: Pt is on day 1 of hospitalization. EMR reviewed, d/c orders are in. No further d/c planning needs at this time. CREDIT RELATIONSHIP MANAGER will continue to follow if needs arise. Assessment: Pt who is independent at baseline. Plan: Pt will d/c home via POV today. No further d/c planning needs at this time. CREDIT RELATIONSHIP MANAGER will continue to follow if needs arise. LALO White
--- NOTE | 2016-12-21 14:58 | PCM.DC.MED ---
Discharge Summary Date of Service Dec 21, 2016 Dates of Hospitalization Date of Hospital Admission Dec 20, 2016 at 04:20 Date of Discharge: Dec 21, 2016 Providers: Admitting Physician: Margaret Lutz DO Primary Care Physician: Lis Sandoval MD Attending Physician: Margaret Lutz DO Diagnosis at Time of Discharge Diagnosis at Time of Discharge 1. History of CAD with acute chest pain, present on admission. 2. ESRD on HD, chronic. 3. Hypertension, chronic, 4. Gout, acute on chronic. 5. GERD, chronic, 6. Hyperglycemia, acute, 7. Anemia, likely chronic, Consultations Cardiology- Dr. Suki Garza Procedures ECG 12 Lead 12/20/16 00:31 at [facility] Rate 115 QTc 440 Sinus tachycardia; Twave inversions seen in lead III, aVF (seen in multiple EKG dating back to 11/12/16); ST depressions in various leads (also present dating back to 11/12/16) Invasive Procedures IMPRESSION: Abnormal pharmacologic stress test for myocardial perfusion imaging. Moderately reduced left ventricular systolic function on rest and stress images. EF is 34%. There are focal wall motion abnormalities involving inferior wall and inferior septum. There is large size severe intensity fixed inferior perfusion defect which is most likely due to completed inferior infarct. diaphragmatic attenuation cannot be excluded. Brief History Patient is a 40 year old male with a history of ESRD on HD, HTN, CAD and gout. He presented to [place] ED on 12/20/16 via EMS. He reports that around 9:00PM he took two Tylenol and a hydroxyzine for bedtime. Around 11:00PM he awakened feeling diaphoretic. He arouse to try to turn off the heaters in the room. To him, it felt as though his blood pressure was climbing and as it did he began to experience chest pressure. The pressure turned into pain in the left side of his chest and then began to go into his left arm. He felt his breathing was fast and shallow. He had nausea but no vomiting. He chewed a tablet of amlodipine to help his BP. This did not cause significant improvement and he called 911. In the ambulance he received a dose of nitro that helped. In the ED he received a second dose which relieved the pain. Of note, patient seen in Urgent care on 12/18/16 for gout flair. Given 14 day taper of prednisone with 1 refill. Patient reports having upcoming consultation with rheumatology and nephrology. In the ED patient was afebrile with a heart rate of 104, respiratory rate of 16 , blood pressure of 156/98 and O2 saturation of 99% on room air. Labs were remarkable for WBC 11.7, hgb 9.8, hct 29.9, BNP 2360, BUN 35, creatinine 3.5, glucose 274. EKG interpreted by ED doc showed T-wave inversion in 3 and aVF but no ST changes. It was similar to prior exams. Called Dr. Manzano who recommended transfer to [facility] for further evaluation and observation. Hospital Course 1. History of CAD with acute chest pain, present on admission. Resolved. - Patient with cardiac risk factors including family history, advanced kidney disease and known CAD. - No new EKG changes. . - Nitro SL available PRN chest pain, Although chest pain had already been resolved by transfer time. - Troponin and CK-MB reassuring - Echo done in October 2016 at [facility]. Believed to show no wall motion abnormalities. Will not plan to repeat at this time. - Will keep patient NPO at this time in case it is determined he needs cardiac catheterization. - In the past medical management of CAD recommended with: statin, Plavix 75 mg daily, carvedilol 12.5 mg BID, Isosorbide mononitrate ER 30 mg daily. Will plan to continue those at this time. Carvedilol and isosorbide to be deferred until after stress test - will need to be re-ordered. -Pharma stress test interpreted as: large size severe intensity fixed inferior perfusion defect which is most likely due to completed inferior infarct. diaphragmatic attenuation cannot be excluded. -Cardiology was consulted and recommend non-emergent catheterization. Patient elected to do it as an outpatient. Cardio notified and will schedule this for the upcoming week. 2. ESRD on HD, chronic. - Secondary to hereditary kidney disease. - Last HD 12/19/16. //Fri is usual schedule. - He did receive Dialysis on 12/21. -Nephrology was consulted. -Lisinopril 5mg was added to patient's regimen 3. Hypertension, chronic, presume stable. - Continued on amlodipine 5 mg BID. 4. Gout, acute on chronic. - Home med Uloric 40 mg daily not on formulary. - Continued on his prednisone taper with 40 mg daily x 2 more days. If patient still admitted would need 20 mg daily starting 12/22/16. 5. GERD, chronic, presume stable. - Home med ranitidine 150 mg HS. Continued on famotidine 20 mg BID during admission. 6. Hyperglycemia, acute, present on admission. - Blood glucose not a fasting level. No known history of DM2. - Patient currently on prednisone for gout flair and this is the likely cause. -Stable 7. Anemia, likely chronic, presume stable. - Patient with ESRD and likely does not produce sufficient erythopoietin for RBC production. - Baseline appears to be about 9.0. - Stable. Exam Vital Signs (Last) Date Time Temp Pulse Resp B/P Pulse Ox O2 Delivery O2 Flow Rate FiO2 12/21/16 10:36 96 12/21/16 10:26 36.5 18 139/86 97 Room Air 12/20/16 13:12 2.00 Exam Gen: Alert and oriented x3, no acute distress HEENT: Head atraumatic, normocephalic, PERRLA, EOMI, sclera anicteric, Mucus membranes moist, no oral thrush observed Neck: No cervical lymphadenopathy, neck supple, nontender, No JVD noted CV: Regular rate and rhythm with soft systolic murmur noted Resp: clear to auscultation bilaterally with adequate respiratory effort Abd: Nontender, non-distended, normoactive bowel tones, soft MSK: No cyanosis, clubbing; trace pitting edema in bilateral lower extremities Skin:No ulcerations/open wounds. Right chest Cath covered in dressing, c/d/i Neuro: Grossly intact, no focal weakness, normal speech, patient can move upper and lower limbs grossly Psych; Appropriate mood and affect Test 12/20/16 05:40 12/20/16 10:15 12/20/16 17:19 12/21/16 06:00 Total Creatine Kinase 18U/L (21-232) Creatine Kinase MB 1.3ng/mL (0.0-10.4) Creatine Kinase MB % % (0.0-5.0) Prothrombin Time 11.4sec (8.1-12.5) Prothromb Time International Ratio 1.06ratio Phosphorus Level 3.3mg/dL (2.5-4.9) Iron Level 117ug/dL (35-150) Total Iron Binding Capacity 154ug/dL (250-450) Percent Iron Saturation 76%sat (15-50) Unsaturated Iron Binding 36.6ug/dL Parathyroid Hormone (Intact) 87pg/mL (15-65) Troponin T 0.016ug/L (0.0-0.011) Urine Color Straw (YELLOW) Urine Appearance Clear (CLEAR,HAZY) Urine pH 6.5 (5.0-8.0) Urine Specific Park[place] 1.005 (1.003-1.035) Urine Protein 30mg/dL (NEG,TRACE) Urine Glucose (UA) 100mg/dL (NEGATIVE) Urine Ketones Negativemg/dL (NEGATIVE) Urine Occult Blood Trace (NEGATIVE) Urine Nitrite Negative (NEGATIVE) Urine Bilirubin Negative (NEGATIVE) Urine Urobilinogen Normalmg/dL (NORMAL) Urine Leukocyte Esterase Negative (NEGATIVE) Urine RBC 0-2/hpf (0-2) Urine WBC 0-5/hpf (0-5) Urine Epithelial Cells Occasional/hpf (NONE-MOD) Urine Crystals None seen (NONE SEEN) Urine Bacteria None/hpf (NONE-FEW) Urine Hyaline Casts None/lpf (NONE) Urine Granular Casts None seen (NONE SEEN) Urine Waxy Casts None seen (NONE SEEN) Urine Red Blood Cell Casts None seen (NONE SEEN) Urine White Blood Cell Casts None seen (NONE SEEN) Urine Mucus None seen (None Seen) Urine Trichomonas None seen (NONE SEEN) Urine Yeast None (NONE SEEN) Test 12/21/16 06:21 White Blood Count 9.2th/mm3 (3.8-10.1) Red Blood Count 3.02mil/mm3 (4.40-5.80) Hemoglobin 8.6g/dL (13.8-17.2) Hematocrit 26.9% (41.0-50.0) Mean Corpuscular Volume 89.1fL (81-100) Mean Corpuscular Hemoglobin 28.5pg (27.0-35.0) Mean Corpuscular Hemoglobin Concent 32.0% (32.0-37.0) Red Cell Distribution Width 15.2% (12.3-15.4) Platelet Count 253bil/L (150-400) Neutrophils (%) (Auto) 91.8% (40-74) Lymphocytes (%) (Auto) 4.7% (14-46) Monocytes (%) (Auto) 2.0% (4-12) Eosinophils (%) (Auto) 0% (0-5) Basophils (%) (Auto) 0.1% (0-3) Sodium Level 138mEq/L (134-144) Potassium Level 4.4mEq/L (3.5-5.2) Chloride Level 99mEq/L (97-108) Carbon Dioxide Level 20mmol/L (18-29) Blood Urea Nitrogen 64mg/dL (6-24) Creatinine 4.91mg/dL (0.76-1.27) Estimat Glomerular Filtration Rate 14mL/min (>59) Glucose Level 246mg/dL (60-99) Uric Acid 7.0mg/dL (2.6-7.2) Calcium Level 8.7mg/dL (8.5-10.1) Total Bilirubin 0.2mg/dL (0.0-1.2) Aspartate Amino Transf (AST/SGOT) 10U/L (0-50) Alanine Aminotransferase (ALT/SGPT) 27U/L (0-44) Alkaline Phosphatase 147U/L (25-150) Total Protein 5.7g/dL (6.4-8.4) Albumin 3.0g/dL (3.4-5.0) Discharge Medications Discharge Medications Amlodipine (Amlodipine) 5 Mg Tablet 5 MG PO BID (Reported) Aspirin (Aspirin) 81 Mg Tablet 81 MG PO DAILY (Reported) Atorvastatin (Lipitor) 40 Mg Tablet 40 MG PO DAILY (Reported) Calcium Acetate (Calcium Acetate) 667 Mg Capsule 1,334 MG PO TID (Reported) Calcium Carbonate/Vitamin D3 (Calcium 600 + Vit D3 400 Tab) 600 Mg-400 Tablet 1 EACH PO DAILY (Reported) Carvedilol (Carvedilol) 12.5 Mg Tablet 12.5 MG PO BID (Reported) Clopidogrel (Clopidogrel) 75 Mg Tablet 75 MG PO DAILY (Reported) Isosorbide MN ER (Isosorbide MN ER) 30 Mg Tab.er.24h 30 MG PO DAILY (Reported) Lisinopril (Lisinopril) 5 Mg Tablet 5 MG PO DAILY Prescribed by: KLAUS HERNANDEZ DO Prednisone (PredniSONE) 10 Mg Tablet 10 MG PO DAILY (Reported) taper Ranitidine (Ranitidine) 150 Mg Capsule 150 MG PO HS (Reported) As needed hydrOXYzine Hcl (HydrOXYzine Hcl) 25 Mg Tablet 25 MG PO BID PRN PRN For Itching (Reported) Miscellaneous Medications Febuxostat (Uloric) 40 Mg Tablet 40 MG PO (Reported) Additional med instructions Continue your home medications as previously prescribed We have started you on a blood pressure pill called Lisinopril. Please take this daily. Continue to taper off the Prednisone also. Followup Plan Disposition: Home Discharge Diet: Renal Diet Discharge Activity: No restrictions Patient Instructions You are being discharged home today. Dr. Garza and the cardiology department will schedule you for an outpatient cath procedure this week. Please follow up with your primary care doctor in 1 week also. Resume your regular dialysis schedule. Resume your Prednisone taper also. Follow-up Provider: Lis Sandoval MD Follow-up with PCP in: 1 week Provider: Suki Garza MD Follow-up in: 1 week Attending Statement I have seen and evaluated Mr. Tobin at his bedside today, in addition to directly supervising the care provided by his resident physician. I agree with the above discharge documentation as it reflects my own examination assessment and plan. Stanley Alonso M.D. copies to: Suki Garza MD; Lis Sandoval MD, Hong D DO Dec 21, 2016 14:58 Megan Alonso MD Dec 21, 2016 15:30
--- NOTE | 2016-12-21 16:40 | NUR ---
Dialysis note: 4 hrs tx. 2000 ml net UF. Right catheter, dsg changed, no s/s of infection noted. Pls see DTR for VS details. Qb 400-500. Heparin given. O2 @ 2L via NC on. Tolerated tx, slept at intervals. Catheter flushed, heparin dwelled and secured. Report given to Trudy Kulkarni RN. Stable at time of transfer.
--- NOTE | 2016-12-21 17:53 | NUR ---
Discharge Reviewed d/c instructions with pt, including care notes and new prescriptions, pt signed and given originals, copies to chart. Home meds retrieved from pharmacy. IV d/c intact, tele removed. VS stable at d/c. Dialysis completed today before d/c. All belongings packed and pt ready to go, waiting for to show up to give ride home. Care continues until pt leaves unit. Addendum: 12/21/16 at 1849 by SANDRA VARGAS RN pt left unit on foot accompanied by his with all belongings, VS stable upon leaving
== END 2016-12-21 18:51 | disposition home or self-care (01) ==
LOC: MPC 04:20
PROVIDERS: ADMIT Internal Medicine; ATTEND Internal Medicine
DX: R07.9 Chest pain, unspecified (principal); I25.10 Atherosclerotic heart disease of native coronary artery without angina pectoris; I25.2 Old myocardial infarction; I13.11 Hypertensive heart and chronic kidney disease without heart failure, with stage 5 chronic kidney disease, or end stage renal disease; N18.6 End stage renal disease; I42.9 Cardiomyopathy, unspecified; N07.8 Hereditary nephropathy, not elsewhere classified with other morphologic lesions; D63.1 Anemia in chronic kidney disease; M1A.9XX1 Chronic gout, unspecified, with tophus (tophi); E78.5 Hyperlipidemia, unspecified; R73.9 Hyperglycemia, unspecified; Z99.2 Dependence on renal dialysis; Z79.82 Long term (current) use of aspirin; Z79.02 Long term (current) use of antithrombotics/antiplatelets; Z87.891 Personal history of nicotine dependence; Z79.52 Long term (current) use of systemic steroids; Z86.73 Personal history of transient ischemic attack (TIA), and cerebral infarction without residual deficits; K21.9 Gastro-esophageal reflux disease without esophagitis
CPT/HCPCS: 36415; 78452; 80053; 81001; 82550; 82553; 83540; 83550; 83970; 84100; 84484; 84550; 85025; 85610; 86850; 93005; 93017; A9502; G0257; G0378; J1815; J2785

== ENCOUNTER 2016-12-23 23:12 | Inpatient (IN) | payer OTHER ==
[~2016-12-23] VITALS: Ht 172.7 cm; Wt 82.1 kg
[~2016-12-23 23:12] MED LIST changes: +LISI-571 PO; -OXYC1TAB24 PO; +PRE10 PO; -PRE20 PO
--- NOTE | 2016-12-23 23:12 | ED.REPORT ---
HPI-Dyspnea / Wheezing Date of Service Dec 23, 2016 ED Provider: Dr. Cliff Dumont D.O. A 41 year old male with a medical history including hereditary kidney disease, hypertension, CAD, OK, and ESRD on dialysis presents to the ED via EMS with shortness of breath onset just prior to arrival. The patient denies chest pain. EMS found him to be hypoxic with bilateral rales. En route the patient was placed on CPAP and given Nitro and Morphine x4. He takes Plavix regularly. The patient was discharged from the hospital two days ago after a one night stay for chest pain secondary to CAD. His last dialysis was three days ago. The patient admits to drinking alcohol today. Nursing Notes Stated Complaint: SHORTNESS OF BREATH/CP Nursing Notes Reviewed: Yes Allergies: Coded Allergies: No Known Allergies (Unverified , 12/09/16) Scheduled Amlodipine (Amlodipine) 5 Mg Tablet 5 MG PO BID Aspirin (Aspirin) 81 Mg Tablet 81 MG PO DAILY Atorvastatin (Lipitor) 40 Mg Tablet 40 MG PO DAILY Calcium Acetate (Calcium Acetate) 667 Mg Capsule 1,334 MG PO TID Calcium Carbonate/Vitamin D3 (Calcium 600 + Vit D3 400 Tab) 600 Mg-400 Tablet 1 EACH PO DAILY Carvedilol (Carvedilol) 12.5 Mg Tablet 12.5 MG PO BID Clopidogrel (Clopidogrel) 75 Mg Tablet 75 MG PO DAILY Isosorbide MN ER (Isosorbide MN ER) 30 Mg Tab.er.24h 30 MG PO DAILY PT TAKES AT LUNCH Lisinopril (Lisinopril) 5 Mg Tablet 5 MG PO DAILY Prednisone (PredniSONE) 10 Mg Tablet 10 MG PO DAILY taper Ranitidine (Ranitidine) 150 Mg Capsule 150 MG PO HS Scheduled PRN hydrOXYzine Hcl (HydrOXYzine Hcl) 25 Mg Tablet 25 MG PO BID PRN PRN For Itching Miscellaneous Medications Febuxostat (Uloric) 40 Mg Tablet 40 MG PO General Time Seen by MD: 23:12 Chief Complaint Shortness of breath Hx Obtained From: Patient, EMS Arrived By: Ambulance Sudden in Onset?: Yes Onset Occurred: Just prior to arrival Symptom Duration: Since onset Location: : None Severity: Current: No pain currently Severity: Maximum: No pain Associated with: Denies: Chest pain, Fever Relieved by: Supplemental oxygen Context Related History: Reports: Coronary artery disease Recent Healthcare: Recent doctor visit, Recent hospitalization Similar Sx Previous: Yes Past Medical History Past Medical History ESRD on HD Hereditary kidney disease (no more specific information could currently be obtained) Hypertension Gout CAD with OK August 2016 - medical management Past Surgical History Tunneled catheter placement (October 2016) Family History No known family history of stroke Mom - of complications of CHF Dad - CAD/OK Smoking History Former Smoker Social History Alcohol Use: Denies alcohol use Drug Use: Denies drug use Other Social History: , Lives with children Ambulatory Status Independent Review of Systems Constitutional: Denies: Fever Respiratory: Reports: Shortness of breath Cardiovascular: Denies: Chest pain Complete sys rev & neg: except as marked. GI: Denies: Diarrhea, Vomiting Physical Exam Initial Vital Signs Vital Signs (First) Date Time Temp Pulse Resp B/P Pulse Ox O2 Delivery O2 Flow Rate FiO2 12/23/16 23:13 36.8 110 32 167/98 100 BiPAP 12/23/16 23:15 100 Initial VS: Reviewed Head / Eyes: Atraumatic, Normocephalic ENT: Conjunctiva normal, No scleral icterus Abdomen / GI: Soft, Non-tender Skin: Warm, Dry, No cyanosis Neurologic: Alert, Oriented, Nonfocal Psychiatric: Mood/affect normal, Behavior normal, Normal thought content General/Constitutional: Awake, Alert Neck: Supple, Full range of motion Neck Vascular: Positive: JVD moderate Respiratory / Chest: Atraumatic, Breath sounds = bilat Rales / Rhonchi: Positive: Rales bilateral bases Presents on BiPAP Cardiovascular: Heart rate NL, Regular rhythm, Heart sounds NL Interpretation & Diagnostics Lab Results Interpretation Result Diagram: 12/24/16 0515 12/24/16 0515 Test 12/23/16 23:10 12/24/16 01:17 12/24/16 01:22 Metamyelocytes % 4% (0-0) Myelocytes % 3% (0-0) Promyelocytes % 1% (0-0) Prothrombin Time 11.3sec (8.1-12.5) Prothromb Time International Ratio 1.05ratio Magnesium Level 1.7mg/dL (1.6-2.6) Pro-B-Type Natriuretic Peptide > 79166ae/mL (0-86) Procalcitonin 0.30ng/mL (0.00-0.08) Lactic Acid Level 1.7mmol/L (0.4-2.0) ECG Interpretation ECG Interpretation: Sinus rhythm rate 103 PVCs No signs of hyperkalemia, hypernatremia Time: 23:18 Interpreted by: ED physician X-Ray Chest Interpretation Chest Xray Interpretation: Mild vascular prominence, otherwise normal View: Portable, 1 view Interpretation / Wet Read by: Wet read ED physician Chest Xray Interpretation: Questionable right middle lobe early infiltrate View: Portable, 1 view Interpretation / Wet Read by: Wet read ED physician Re-Eval/Medical Decision Med Decision/Clinical Course Patient presented on BiPAP in respiratory distress. According to EMS he was found have diffuse crackles associate with chest pain. He admits to drinking alcohol this weekend. They placed him on BiPAP and gave him nitroglycerin and morphine. His symptoms had resolved for the most part of my evaluation. Physical exam however he did have diffuse crackles in both lung obrien. Trace JVD. No limb edema. EKG did not show evidence of an acute OK. His x-ray is worrisome for vascular overload is also a little bit of haziness over the right middle lobe. I returned work showed a markedly elevated BNP. His white count is 20,000 with bands. Electrolytes are reassuring. He was given a dose of antibiotics in the event this is a beginning infiltrate. It is hard to say at this point. First troponin is normal. I will admit him to the hospitalist service for further care and disposition. Re-Evaluation/Progress : Time of Eval: 01:07 Patient Status: Condition improved Re-Evaluation/Progress Note: Patient rechecked. Discussed x-ray and lab results, diagnosis, and plan for admit. Patient agrees with plan for care and all questions were addressed. Consultation : Referral / Consult Name: Margaret Lutz DO Consulted With: Hospitalist Call Returned at: 01:45 Supervisor Taping: Agrees with eval, Agrees with plan, Accepts admit Counseled Regarding: Diagnosis, Lab results, Need for admission Discharge & Departure Impression: Primary Impression: Respiratory distress Additional Impressions: ESRD (end stage renal disease) CHF (congestive heart failure) Congestive heart failure type: unspecified congestive heart failure type Congestive heart failure chronicity: acute on chronic Qualified Code: I50.9 - Heart failure, unspecified Disposition: ADMITTED TO HOSPITAL Discharge Condition All VS Reviewed: Yes Condition: Stable Referrals: [facility] Scribe Attestation Portions of this note were transcribed by Lelo Simmons. I, Dr. Dumont, personally performed the history, physical exam, and medical decision-making; I reviewed and confirmed the accuracy of the information in the transcribed note. Signed by: Abhijit Coe, 12/24/2016, 01:52 copies to: [facility] Cliff Dumont DO Dec 23, 2016 23:12 LELO SIMMONS Dec 23, 2016 23:51 (8.5-10.1) Magnesium Level 1.7mg/dL (1.6-2.6) Total Bilirubin 0.3mg/dL (0.0-1.2) Aspartate Amino Transf (AST/SGOT) 69U/L (0-50) Alanine Aminotransferase (ALT/SGPT) 86U/L (0-44) Alkaline Phosphatase 163U/L (25-150) Troponin T 0.010ug/L (0.0-0.011) Pro-B-Type Natriuretic Peptide > 65144sh/mL (0-86) Total Protein 6.5g/dL (6.4-8.4) Albumin 3.6g/dL (3.4-5.0) Procalcitonin 0.30ng/mL (0.00-0.08) Lactic Acid Level 1.7mmol/L (0.4-2.0) ECG Interpretation ECG Interpretation: Sinus rhythm rate 103 PVCs No signs of hyperkalemia, hypernatremia Time: 23:18 Interpreted by: ED physician X-Ray Chest Interpretation Chest Xray Interpretation: Mild vascular prominence, otherwise normal View: Portable, 1 view Interpretation / Wet Read by: Wet read ED physician Chest Xray Interpretation: Questionable right middle lobe early infiltrate View: Portable, 1 view Interpretation / Wet Read by: Wet read ED physician Re-Eval/Medical Decision Re-Evaluation/Progress : Time of Eval: 01:07 Patient Status: Condition improved Re-Evaluation/Progress Note: Patient rechecked. Discussed x-ray and lab results, diagnosis, and plan for admit. Patient agrees with plan for care and all questions were addressed. Consultation : Referral / Consult Name: Margaret Lutz DO Consulted With: Hospitalist Call Returned at: 01:45 Supervisor Taping: Agrees with eval, Agrees with plan, Accepts admit Counseled Regarding: Diagnosis, Lab results, Need for admission Discharge & Departure Impression: Primary Impression: Respiratory distress Additional Impressions: ESRD (end stage renal disease) CHF (congestive heart failure) Congestive heart failure type: unspecified congestive heart failure type Congestive heart failure chronicity: acute on chronic Qualified Code: I50.9 - Heart failure, unspecified Disposition: ADMITTED TO HOSPITAL Discharge Condition All VS Reviewed: Yes Condition: Stable Referrals: [facility] Scribe Attestation Portions of this note were transcribed by Lelo Simmons. I, Dr. Dumont, personally performed the history, physical exam, and medical decision-making; I reviewed and confirmed the accuracy of the information in the transcribed note. Signed by: Abhijit Coe, 12/24/2016, 01:52 copies to: [facility] Cliff Dumont DO Dec 23, 2016 23:12 LELO SIMMONS Dec 23, 2016 23:51
[2016-12-23 23:13] VITALS: BP 167/98; PULSE 110; RESP 32; O2SAT 100
[2016-12-23 23:15] VITALS: RESP 28; O2SAT 100
[2016-12-23 23:25] LABS: Mean Corpuscular Hemoglobin 28.4 pg (27.0-35.0); Mean Corpuscular Volume 89.8 fL (81-100); Platelet Count 575 bil/L (150-400)
[2016-12-23 23:45] VITALS: BP 145/92; PULSE 97; RESP 23; RESP 28; O2SAT 100
[2016-12-23 23:45] LABS: BASOPHILS % (AUTO) 0 % (0-3); EOSINOPHILS % (AUTO) 1 % (0-5); INR 1.05 ratio; MONOCYTES % (AUTO) 4 % (4-12); NEUTROPHILS % (AUTO) 79 % (40-74)
[2016-12-24] VITALS (12 sets, daily range): BP systolic 144–178; BP diastolic 89–125; PULSE 87–118; RESP 17–28; O2SAT 95–100
[2016-12-24 00:15] LABS: Magnesium 1.7 mg/dL (1.6-2.6)
[2016-12-24] MEDS ORDERED: Piperacillin-Tazo 3.375 Gm Inj 3.375 GM in Dextrose 5% Minibag Plus 50 ML IV ONE (01:05)
[2016-12-24] MEDS ORDERED: Furosemide 10 mg/mL 2 mL Inj IVPUSH ONE (01:10)
[2016-12-24] MEDS ORDERED: Alum-Mag Hydrox-Simeth 30 mL Suspension PO PRN (01:50)
[2016-12-24] MEDS ORDERED: Polyethylene Glycol (PEG) 17 Gm Powder PO PRN (01:50)
[2016-12-24] MEDS ORDERED: Senna-Docusate 8.6-50 mg Tablet PO PRN (01:50)
[2016-12-24] MEDS ORDERED: Ondansetron 2 mg/mL 2 mL Inj IVPUSH PRN (01:50)
[2016-12-24] MEDS ORDERED: Glucose 40% Oral Gel 15 Gm Tube PO PRN (03:10)
[2016-12-24] MEDS ORDERED: Insulin LISPRO 300 Unit/3 mL Inj SUBQ ONE (03:50)
--- NOTE | 2016-12-24 04:26 | NUR ---
admit note pt to floor 0240 from ED, pt on 3L oxy mask, slid over to bed, bipap in room will see if he needs it, IV lasix given in ED pt wanting to sit at side of bed to void, voided 500cc, once back in bed MD into see pt and he c/o chest pain, obtained EKG and VS, BP elevated gave one nitro chest pain gone and BP lowered. MD aware. pt with a moist productive cough that appears red in color and he said that was from Tums and food he ate prior to coming to ED. right chest tunnel cath in place, pt last received HD on Friday. BG 314 order to give 3units lispro, pt denies any diabetes. tele SR-ST. pt with home mediations in room verified on mec rec and sent to pharm, three meds listed on med rec but not in home meds pt is unsure if he is taking them, passed on to , orientated pt to call light, room and bed.
--- NOTE | 2016-12-24 04:51 | NUR ---
orto BP/HR lying BP 155/106 HR 112 sitting BP 161/96 HR 117 standing BP 176/107 HR 114
[2016-12-24] MEDS ORDERED: Labetalol 5 mg/mL 4 mL Inj IVPUSH ONE (05:00)
[2016-12-24 05:22] LABS: Mean Corpuscular Hemoglobin 28.4 pg (27.0-35.0); Mean Corpuscular Volume 89.9 fL (81-100); Platelet Count 394 bil/L (150-400)
--- NOTE | 2016-12-24 05:35 | PCM.HPMED ---
Subjective Date of Service Dec 24, 2016 Primary Provider: Admitting Physician: Margaret Lutz DO Primary Care Physician: Lis Sandoval MD Attending Physician: Margaret Lutz DO Chief Complaint: Chest pain and shortness of breath History of Present Illness: Patient is a 41-year-old male with ESRD on HD, hypertension, CAD and gout presenting with chest pain and shortness of breath. Note that the patient was recently hospitalized for chest pain and discharged on 12/21/2016 from [facility]. During that hospitalization he underwent a stress test that was abnormal and interpreted as intermediate risk with evidence of infarct in the RCA distribution. A cardiac catheterization was planned; however, the patient opted to have this done as an outpatient as he had other obligations he wanted to tend to. Patient reports onset of chest pain at about 20:00 on 12/24/2016 while at rest. Patient describes his chest pain as pressure-like and then progressed into a sharp pain. He initially attributed the chest pain to indigestion and says burping and a bowel movement seemed to help. The pain then recurred about an hour later with radiation to his left arm. He had associated diaphoresis and he notes the pain was similar to his previous MO. This prompted him to summon EMS. En route he received morphine with relief. At time of visit the patient is seen on BiPAP and reports his chest pain is very low, "not even a one" on the pain scale. In the ED, vitals: temp 36.8, HR 110, RR 32 satting 100% on BiPAP. Notable labs : WBC 31821, Hgb 10.3, Hct 32.6, platelet 526. BUN 71, creatinine 4.64, glucose 416. AST 69, ALT 86, Alk phos 163. Pro-BNP >64746. Lasix 20mg IV and Zosyn was given in the ED. Review of Systems: A comprehensive review of systems was conducted with the patient and found to be negative except as above in the History of Present Illness. Allergies Coded Allergies: No Known Allergies (Unverified , 12/09/16) Home Medications Medication reconciliation needs completion Amlodipine 5mg BID ASA 81mg daily Atorvastatin 40mg daily Calcium acetate 1300mg TID Calcium carbonate/Vitamin D - 600/400 Carvedilol 12.5mg BID Plavix 75mg daily Isosorbide mononitrate 30mg daily Lisinopril 5mg daily Ranitidine 150mg daily Febuxostat 40mg daily Prednisone taper started 12/18/2016: 40 mg x 4 days, 20 mg x 4 days, 10 mg x 4 days, 5 mg x2 days PMH ESRD on HD Hereditary kidney disease Hypertension Gout CAD with MO August 2016 . 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 On BiPAP HEENT: Normocephalic, atraumatic. External ears without defect. Pupils equal, round, and reactive to light. Anicteric sclerae, moist conjunctivae, and no lid lag. Oropharynx free of erythema and cobble stoning with moist mucosa. BiPAP mask in place. Poor dentition. Neck: Supple. No lymphadenopathy or thyromegaly. Cardiovascular: Tachycardic. Regular rhythm with no murmurs, rubs, or gallops appreciated Pulmonary: Coarse bilaterally. No wheezes. Normal respiratory effort with no use of accessory muscles. Abdomen: Soft, nontender, nondistended. Extremities: No clubbing, cyanosis, edema, or lymphadenopathy appreciated. Skin: Tunneled catheter in place on right chest without signs of infection. Normal temperature, turgor, and texture; no rash, ulcers, or subcutaneous nodules appreciated. Ecchymosis of RLQ of abdomen. Neurological: Cranial nerves grossly intact. Psychiatric: Normal mood and affect. Alert and oriented to person, place, and time. Lab and Diagnostics Result Diagram: 12/23/16230912/23/162309 Assessment & Plan Patient is a 41-year-old male with ESRD on HD, hypertension, CAD and gout admitted for chest pain and shortness of breath. 1. Acute chest pain. Present on admission. Active -Cardiac risk factors include known CAD with prior MO, family history, advanced kidney disease -SL nitro and morphine PRN -Trend troponin. Negative x1 -Stress test from previous hospitalization was abnormal and interpreted as intermediate risk with evidence of infarct in the RCA distribution. Right and left cardiac catheterization was recommended; however, patient wanted to pursue catheterization as an outpatient due to other obligations -Will need Cardiology consultation 2. Acute hypoxic respiratory failure. Present on admission. Active -Uncertain etiology; possibly cardiac, pulmonary edema -BiPAP -Chest x-ray with likely vascular congestion -Lasix 20mg IV in the ED. Reassess fluid status -Received Zosyn in the ED. Will hold antibiotics as he clinically doesn't exhibit infection - no fever, sputum. Patient reports cough with red sputum, though he attributes this to his colored TUMS -Procalcitonin 0.30, possibly pulmonary source or may be attributed to ESRD 3. ESRD on HD, chronic. Present on admission. -Secondary to hereditary kidney disease. -Last HD 12/22/16. //Fri is usual schedule. -Will need to Nephrology consultation 4. Acute leukocytosis. Present on admission -WBC 26897 -Etiology likely due to prednisone, reactive -Continue to monitor with CBC 5. Acute transaminitis with elevated alkaline phosphatase. Present on admission -AST 69, ALT 86, Alk phos 163 -Elevated alkaline phosphatase in the past -Possible secondary to hepatic congestion -Continue to monitor with CMP 6. Hypertension, chronic.Present on admission. -Continue amlodipine 5 mg BID. 7. Gout, chronic. Present on admission. Stable -Continue home medication Uloric -Continue prednisone taper - currently 20 mg daily. Taper started on 12/18/16: 40 mg x 4 days, 20 mg x 4 days, 10 mg x 4 days, 5 mg x2 days 8. GERD, chronic. Present on admission. - Home med ranitidine 150 mg HS. Continue famotidine 20 mg BID during admission. 9. Hyperglycemia. Present on admission. Active -HbA2c 6.1% on 12/10/2016 -Hyperglycemia likely secondary to prednisone for gout flare -Insulin Lispro low dose correction -Bedside blood glucose checks 10. Normocytic anemia, likely chronic. Present on admission. Presumed stable -Likely secondary to ESRD -Baseline hemoglobin approximately 9.0 -No obvious bleed - Will continue to monitor CBC Medication reconciliation needs to be completed Patient Status: Patient is admitted under inpatient status with expected length of stay greater than 2 midnights due to severity of presenting symptoms, risk of adverse event, and complexity of treatment plan. VTE Prophylaxis: Sub-Q Heparin (Unfractionated) Resuscitation Status: CPR: Attempt Resuscitation Attending Statement The patient was seen and examined together with house staff on 12/24/2016 and I agree with the history, exam and plan as outlined in the note above. Mike Darnell DO Dec 24, 2016 02:37 Margaret Lutz DO Dec 24, 2016 06:56
[2016-12-24 05:49] LABS: BASOPHILS % (AUTO) 0 % (0-3); EOSINOPHILS % (AUTO) 0 % (0-5); MONOCYTES % (AUTO) 7 % (4-12); NEUTROPHILS % (AUTO) 79 % (40-74)
[2016-12-24 06:37] LABS: TROPONIN T 0.01 ug/L (0.0-0.011)
[2016-12-24] MEDS: Insulin LISPRO 300 Unit/3 mL Inj SUBQ SCH ×3 (08:00→18:12)
[2016-12-24] MEDS: Heparin 5,000 Unit/mL Inj SUBQ SCH ×2 (08:20→16:30)
--- NOTE | 2016-12-24 09:01 | DRSVH ---
PROCEDURE: X-RAY CHEST ONE VIEW, PORTABLE ([id number]) INDICATIONS: dyspnea TECHNIQUE: One view of the chest was acquired. COMPARISON: [facility], , CHEST 1 VIEW, 12/20/2016, 0:53. FINDINGS: Surgical changes and devices: Stable positioning of a double-lumen right IJ tunneled dialysis cathete r. Lungs and pleura: No pleural effusions or pneumothorax. Lungs are clear. Mediastinum: Mediastinal contours appear normal. Heart size is normal. Bones and chest wall: No suspicious bony lesions. Overlying soft tissues appear unremarkable. IMPRESSION: No acute cardiopulmonary disease. Dictated by: Alan Reese [facility] Interpreted: Max Rodriguez MD on 12/24/2016 at 9:00 Transcribed by: SELVIN on 12/24/2016 at 9:01 Approved by: Max Rodriguez M.D. on 12/24/2016 at 16:48
--- NOTE | 2016-12-24 14:05 | CONS ---
[address] [address] CONSULTATION REPORT PATIENT: KYA VEGA : 1975 MR#: [id number] ADMIT: 12/24/2016 JOB ID: [id number] DATE OF SERVICE: 12/24/2016 NEPHROLOGY CONSULTATION: REQUESTING PHYSICIANS: Dr. Margaret Lutz REASON FOR CONSULTATION: Management of end-stage renal disease. CHIEF COMPLAINT: Shortness of breath and chest pressure. PRESENT ILLNESS: This is a very pleasant 41-year-old male with significant past medical history of end-stage renal disease on hemodialysis every Friday, , Friday, hypertension, coronary artery disease, gout, dyslipidemia, renal osteodystrophy, who presented to the hospital with a complaint of chest pain and shortness of breath. The patient was just discharged from the hospital on December 21, 2016. The patient was hospitalized at that time with a similar problem. He had chest pain. The stress test was done which showed moderately reduced left ventricular systolic function, ejection fraction 34%, large size severe intensity fixed inferior perfusion defect. The plan was to proceed with cardiac angiogram. However, the patient opted to have the procedure done as an outpatient since he had to attend an important event with his family. The patient then was discharged on Friday. The patient came back this time with a complaint of substernal chest pressure started last night. He was complaining of shortness of breath, congested and has some pink frothy sputum. The initial vitals showed temperature of 36.8, heart rate of 110, respiratory of 32, O2 sat 100% on BiPAP. His ProBNP was over 70,000. He received IV Lasix and Zosyn in the emergency department. The patient was started on hemodialysis the end of October 2016. He had hereditary kidney disease. He mentioned that he had a kidney biopsy done in 1992 at the [facility]. He is not able to recall the diagnosis. He was put on prednisone intermittently between 1992 and 2002. The patient remains making some urine at least 4-5 cups a day. Before he came to the hospital this time, he had consumed a high salt diet. He went to have a buffet with his family. The patient does not have fever. No chills. He now has shortness of breath, orthopnea and again productive cough with a pink frothy sputum. PAST MEDICAL HISTORY: 1. End-stage renal disease on hemodialysis every Friday, , Friday. 2. Primary glomerular disease, unknown diagnosis. 3. Hereditary kidney disease. 4. Hypertension. 5. Gout. 6. Coronary artery disease with significant past medical history of myocardial infarction. SURGICAL HISTORY: Status post tunneled catheter placement in October of 2016. FAMILY HISTORY: 1. Positive for heart disease both in mother and father. 2. Prostate cancer positive in father. 3. Positive kidney disease in the siblings. SOCIAL HISTORY: The patient is a former smoker. He drinks socially. The patient has just moved to [facility] the end of last year. ALLERGIES: No known drug allergies. MEDICATIONS: Amlodipine, aspirin, atorvastatin, PhosLo, Tums, Coreg, Plavix, isosorbide mononitrate, lisinopril, Uloric, prednisone. PHYSICAL EXAMINATION: Vitals: Temperature 36.6, pulse 87, respiratory rate 24, blood pressure 146/91, O2 sat 97% on FiO2 30%. General appearance: Awake, alert and oriented x3. In mild acute distress. Tachypneic. HEENT: Mild pallor. No jaundice. Positive for JVD. No lymphadenopathy. No thyroid enlargement. Atraumatic. Moist mucous membranes. Heart: Regular rhythm. Normal S1, S2. No murmurs, rubs, or gallops. Lungs: Bibasilar rales bilaterally. No wheezing. No rhonchi. Abdomen: Soft, active bowel sounds. Nontender, nondistended. No hepatosplenomegaly. Extremities: No edema, cyanosis or clubbing of fingers. LABORATORY: Sodium 138, potassium 4.4, chloride 100, bicarbonate 20, BUN 76, creatinine 4.81, calcium 8.4, troponin 0.014, albumin 3.1. Hemoglobin 9.0, WBC 16.2, INR 1.05. Chest x-ray showed no acute cardiopulmonary disease. ASSESSMENT: 1. End-stage renal disease, on hemodialysis every Friday, , Friday. 2. Shortness of breath, multifactorial secondary to fluid overload and acute coronary syndrome. 3. Acute chest pain with significant underlying disease of coronary artery disease and prior myocardial infarction and recent positive stress test. 4. Hypertension with hypertensive nephrosclerosis. 5. History of a primary glomerulonephritis, unspecified. 6. Gout, currently on Uloric and prednisone. 7. Leukocytosis. 8. Anemia in chronic kidney disease. 9. Renal osteodystrophy. PLANS: 1. Per renal standpoint, we will resume his routine dialysis schedule today. Will put him on four hours and try to remove fluid up to 5 L. 2. Pending cardiology input. 3. Continue current antianginal medications. Thank you for the consultation. We will monitor along with you. LUCILAD
[2016-12-24 14:42] LABS: Creatine Kinase 25 U/L (21-232)
--- NOTE | 2016-12-24 16:56 | PCM.DIMED ---
Jayde Carson DO 12/24/16 1656: Discharge Instructions Date of Service Dec 24, 2016 Dates of Hospitalization Dec 24, 2016 at 01:49 Discharge Diagnosis Discharge Diagnosis 1. Acute chest pain. 2. Acute hypoxic respiratory failure. 3. ESRD on HD 4. Acute leukocytosis 5. Acute transaminitis with elevated alkaline phosphatase 6. Hypertension 7. Gout 8. GERD 9. Hyperglycemia 10. Normocytic anemia Diet Renal Diet Activity Limited until seen by PCP Call your provider Fever or Chills, Shortness of breath, Chest pain, Weakness (unilateral), Other ( severe headache, weight gain, swelling in your legs or belly) Patient Instructions Continue all of your medications including aspirin, atorvastatin, carvedilol, amlodipine, isosorbide mononitrate, and lisinopril as previously prescribed. It is important to take your medications daily. Limit the amount of salt in your diet to 2-3 g of sodium each day. Monitor your weight daily. Continue dialysis as previously scheduled and regularly following with your prize jacker, a kidney specialist. Follow up with cardiology, a clinical support specialist, within 1 week. It is important that you follow up with a crayon painter to discuss possible heart catheterization and possible medication changes. Follow up with your primary care provider in 1-2 weeks. Follow-up Provider: Lis Sandoval MD Follow-up with PCP in: 2 weeks Provider: Suki Garza MD Follow-up in: 1 week Kip Acosta MD 12/25/16 0842: Discharge Instructions Attending's Statement The patient was seen and examined together with Dr. Carson on 12/24/2016 and I agree with the history, exam and plan as outlined in the note above. . Jayde Carson DO Dec 24, 2016 16:56 Kip Acosta MD Dec 25, 2016 08:42
--- NOTE | 2016-12-24 18:08 | NUR ---
ED LIQUOR DEPARTMENT MANAGER note: D/A: LIQUOR DEPARTMENT MANAGER received call from pt's RN reported that discharge orders were received for pt after PCC LIQUOR DEPARTMENT MANAGER had gone home. LIQUOR DEPARTMENT MANAGER assistance for pt to transport home as pt reports no ability to get home or pay for transportation. LIQUOR DEPARTMENT MANAGER contacted [employer] to verify pt's eligibility for medicaid cab home, however [employer] report no cabs are in the area tonight due to the weather. LIQUOR DEPARTMENT MANAGER contacted [employer] who pt reports that he uses for transportation, however they also report that they do not have vehicles to take pt home tonight. LIQUOR DEPARTMENT MANAGER discussed bus pass home for pt with RN however no busses are running tonight. Ultimately, RN contacted RN firearms assembly supervisor who plans to authorize payment of better [employer] transport home versus an additional night in the hospital. P: Pt discharging home by better [employer]. Vinnie Brady, LIQUOR DEPARTMENT MANAGER
--- NOTE | 2016-12-24 18:52 | NUR ---
Discharge Pt discharged home today at 1845. Pt off floor via ambulation in the company of the TUGGER OPERATOR to [facility]. Pt sent home with FU instructions, home meds from pharm and diet instructions. Pt voices understanding.
--- NOTE | 2016-12-24 20:10 | PCM.DC.MED ---
Discharge Summary Date of Service Dec 24, 2016 Dates of Hospitalization Date of Hospital Admission Dec 24, 2016 at 01:49 Date of Discharge: Dec 24, 2016 Providers: Admitting Physician: Margaret Lutz DO Primary Care Physician: Lis Sandoval MD Attending Physician: Margaret Lutz DO Diagnosis at Time of Discharge Diagnosis at Time of Discharge 1. Acute chest pain 2. Acute hypoxic respiratory failure 3. End stage renal disease on hemodialysis 4. Acute leukocytosis 5. Acute transaminitis with elevated alkaline phosphatase 6. Hypertension 7. Gout 8. Gastroesophageal reflux disease 9. Hyperglycemia 10. Normocytic anemia Procedures XRay, CTs & MRIs PROCEDURE: X-RAY CHEST ONE VIEW, PORTABLE IMPRESSION: No acute cardiopulmonary disease. Approved by: Max Rodriguez M.D. on 12/24/2016 at 16:48 ECG 12 Lead Sinus tachycardia with premature ventricular complexes. Brief History From the History and Physical performed by Dr. Mike Darnell on 12/24/2016: Patient is a 41-year-old male with ESRD on HD, hypertension, CAD and gout presenting with chest pain and shortness of breath. Note that the patient was recently hospitalized for chest pain and discharged on 12/21/2016 from [facility]. During that hospitalization he underwent a stress test that was abnormal and interpreted as intermediate risk with evidence of infarct in the RCA distribution. A cardiac catheterization was planned; however, the patient opted to have this done as an outpatient as he had other obligations he wanted to tend to. Patient reports onset of chest pain at about 20:00 on 12/24/2016 while at rest. Patient describes his chest pain as pressure-like and then progressed into a sharp pain. He initially attributed the chest pain to indigestion and says burping and a bowel movement seemed to help. The pain then recurred about an hour later with radiation to his left arm. He had associated diaphoresis and he notes the pain was similar to his previous IN. This prompted him to summon EMS. En route he received morphine with relief. At time of visit the patient is seen on BiPAP and reports his chest pain is very low, "not even a one" on the pain scale. In the ED, vitals: temp 36.8, HR 110, RR 32 satting 100% on BiPAP. Notable labs : WBC 69127, Hgb 10.3, Hct 32.6, platelet 526. BUN 71, creatinine 4.64, glucose 416. AST 69, ALT 86, Alk phos 163. Pro-BNP >24595. Lasix 20mg IV and Zosyn was given in the ED. Hospital Course Patient is a 41-year-old male with end stage renal disease on hemodialysis, hypertension, coronary artery disease, and gout admitted for chest pain and shortness of breath. 1. Acute chest pain, present on admission. Resolved. -Cardiac risk factors include known coronary artery disease with prior myocardial infarction, family history, and advanced kidney disease. -Sublingual nitroglycerin and intravenous morphine as needed. -Patient reported complete relief of chest pain upon admission to the hospital. -Trended troponin. It was negative twice and mildly elevated twice, but patient has chronic kidney disease and previous elevated troponin. -CK-MB was 2, within normal limits, which makes acute coronary syndrome unlikely. -Patient had a cardiac stress test from previous hospitalization. It was abnormal and interpreted as intermediate risk with evidence of infarct (fixed perfusion defect) in the right coronary artery distribution. Right and left cardiac catheterization was recommended; however, patient wanted to pursue catheterization as an outpatient due to other obligations. -Discussed patient's case with , cardiology, and based on patient's negative CK-MB and known fixed perfusion defect on cardiac stress test, he recommended close outpatient follow up with cardiology within 1 week. 2. Acute hypoxic respiratory failure, present on admission. Improved. -Most likely, patient was volume overloaded and had pulmonary edema from systolic congestive heart failure and end stage renal disease. -Patient reports that he consumed a lot of high salt foods and an increased amount of soda over the weekend. -Cardiac stress test showed EF 34% and [place] 29074. BNP also likely elevated secondary to end stage renal disease. -Patient initially on BiPAP but then switched to oxygen via nasal canula. -Chest x-ray reported as no acute cardiopulmonary changes. -Furosemide 20mg intravenous in the emergency department. -Received Zosyn intravenous in the emergency department. Antibiotics held after the emergency department because dyspnea attributed to cardiac and renal etiology rather than an infectious etiology. Patient reports cough with pink sputum, though he attributes this to his colored Tums. -Procalcitonin 0.30, likely attributed to end stage renal disease. -Patient's lungs were clear to auscultation during dialysis and patient was no longer in respiratory distress and no longer needed BiPAP. 3. End stage renal disease on hemodialysis, chronic, present on admission. Stable. -Secondary to hereditary kidney disease. Patient reports history of a glomerulonephritis. -Likely contributed to his elevated BNP and troponin and acute respiratory failure. -Last hemodialysis on 12/22/16 and Friday,, and Friday is his usual dialysis schedule. -Nephrology consulted. Her time and recommendations were appreciated. -Patient received dialysis with significant improvement of symptoms during and afterwards. 4. Acute leukocytosis, present on admission. -WBC 14736 initially with improvement to 16,200 -Likely due to prednisone and to recent gout flare and is reactive in nature. -Should continue to be monitored as an outpatient. 5. Acute transaminitis with elevated alkaline phosphatase, present on admission. -AST 69, ALT 86, alkaline phosphatase 163 initially, but improved to AST 28, ALT 67, alkaline phosphatase 145 -Elevated alkaline phosphatase in the past -Likely, secondary to hepatic congestion 6. Hypertension, chronic, present on admission. -Continued amlodipine 5 mg twice per day. -Improved to 145/92 -As an outpatient, consider possible increased dose of isosorbide mononitrate for chest pain and for blood pressure control. 7. Gout, chronic, present on admission. Stable. -Continued home medication febuxostat. -Continued prednisone taper which was 20 mg daily. The taper started on 12/18/16: 40 mg for 4 days, 20 mg for 4 days, 10 mg for 4 days, 5 mg for days 8. Gastroesophageal reflux disease, chronic, present on admission. - Home medication of ranitidine 150 mg at bedtime. Continued famotidine 20 mg twice per day during admission. 9. Hyperglycemia, present on admission. Active. -HbA2c 6.1% on 12/10/2016 -Hyperglycemia likely secondary to prednisone for gout flare 10. Normocytic anemia, likely chronic. Present on admission. Presumed stable. -Likely secondary to end stage renal disease -Baseline hemoglobin approximately 9.0 and patient receives erythropoietin periodically with dialysis treatment -Patient did not have an obvious bleed Exam Vital Signs (Last) Date Time Temp Pulse Resp B/P Pulse Ox O2 Delivery O2 Flow Rate FiO2 12/24/16 16:34 148/89 12/24/16 10:11 88 12/24/16 08:02 36.6 24 97 BiPAP 30 12/24/16 02:50 3.00 Exam General: No acute distress, well-developed, well-nourished, appropriately interactive. On BiPAP HEENT: Normocephalic, atraumatic. External ears without defect. Pupils equal, round, and reactive to light. Anicteric sclerae, moist conjunctivae, and no lid lag. Oropharynx free of erythema and cobble stoning with moist mucosa. BiPAP mask in place. Poor dentition. Neck: Supple. No lymphadenopathy or thyromegaly. Cardiovascular: Regular rate and rhythm with no murmurs, rubs, or gallops appreciated Pulmonary: Coarse rhonchi bilaterally. No wheezes. Normal respiratory effort with no use of accessory muscles. Abdomen: Soft, nontender, nondistended. Extremities: No clubbing, cyanosis, edema, or lymphadenopathy appreciated. Skin: Tunneled catheter in place on right chest without signs of infection. Normal temperature, turgor, and texture; no rash, ulcers, or subcutaneous nodules appreciated. Ecchymosis of RLQ of abdomen. Neurological: Cranial nerves grossly intact. Psychiatric: Normal mood and affect. Alert and oriented to person, place, and time. Pulmonary: Coarse rhonchi bilaterally upon initial examination but resolved during repeat examination during dialysis. Test 12/23/16 23:10 12/24/16 01:17 12/24/16 01:22 12/24/16 05:15 Metamyelocytes % 4% (0-0) Myelocytes % 3% (0-0) Promyelocytes % 1% (0-0) Prothrombin Time 11.3sec (8.1-12.5) Prothromb Time International Ratio 1.05ratio Magnesium Level 1.7mg/dL (1.6-2.6) Pro-B-Type Natriuretic Peptide > 98553wn/mL (0-86) Procalcitonin 0.30ng/mL (0.00-0.08) Lactic Acid Level 1.7mmol/L (0.4-2.0) White Blood Count 16.2th/mm3 (3.8-10.1) Red Blood Count 3.17mil/mm3 (4.40-5.80) Hemoglobin 9.0g/dL (13.8-17.2) Hematocrit 28.5% (41.0-50.0) Mean Corpuscular Volume 89.9fL (81-100) Mean Corpuscular Hemoglobin 28.4pg (27.0-35.0) Mean Corpuscular Hemoglobin Concent 31.6% (32.0-37.0) Red Cell Distribution Width 16.1% (12.3-15.4) Platelet Count 394bil/L (150-400) Neutrophils (%) (Auto) 79% (40-74) Lymphocytes (%) (Auto) 11% (14-46) Monocytes (%) (Auto) 7% (4-12) Eosinophils (%) (Auto) 0% (0-5) Basophils (%) (Auto) 0% (0-3) Band Neutrophils % 3% (1-5) Sodium Level 138mEq/L (134-144) Potassium Level 4.4mEq/L (3.5-5.2) Chloride Level 100mEq/L (97-108) Carbon Dioxide Level 20mmol/L (18-29) Blood Urea Nitrogen 76mg/dL (6-24) Creatinine 4.81mg/dL (0.76-1.27) Estimat Glomerular Filtration Rate 14mL/min (>59) Glucose Level 259mg/dL (60-99) Calcium Level 8.4mg/dL (8.5-10.1) Total Bilirubin 0.2mg/dL (0.0-1.2) Aspartate Amino Transf (AST/SGOT) 28U/L (0-50) Alanine Aminotransferase (ALT/SGPT) 67U/L (0-44) Alkaline Phosphatase 145U/L (25-150) Total Protein 5.3g/dL (6.4-8.4) Albumin 3.1g/dL (3.4-5.0) Test 12/24/16 13:35 Total Creatine Kinase 25U/L (21-232) Creatine Kinase MB 2.0ng/mL (0.0-10.4) Creatine Kinase MB % % (0.0-5.0) Troponin T 0.018ug/L (0.0-0.011) Discharge Medications Discharge Medications Amlodipine (Amlodipine) 5 Mg Tablet 5 MG PO BID (Reported) Aspirin (Aspirin) 81 Mg Tablet 81 MG PO DAILY (Reported) Atorvastatin (Lipitor) 40 Mg Tablet 40 MG PO DAILY (Reported) Calcium Acetate (Calcium Acetate) 667 Mg Capsule 1,334 MG PO TID (Reported) Calcium Carbonate/Vitamin D3 (Calcium 600 + Vit D3 400 Tab) 600 Mg-400 Tablet 1 EACH PO DAILY (Reported) Carvedilol (Carvedilol) 12.5 Mg Tablet 12.5 MG PO BID (Reported) Clopidogrel (Clopidogrel) 75 Mg Tablet 75 MG PO DAILY (Reported) Isosorbide MN ER (Isosorbide MN ER) 30 Mg Tab.er.24h 30 MG PO DAILY (Reported) PT TAKES AT LUNCH Lisinopril (Lisinopril) 5 Mg Tablet 5 MG PO DAILY Prescribed by: KLAUS HERNANDEZ DO Prednisone (PredniSONE) 10 Mg Tablet 10 MG PO DAILY (Reported) taper Ranitidine (Ranitidine) 150 Mg Capsule 150 MG PO HS (Reported) As needed hydrOXYzine Hcl (HydrOXYzine Hcl) 25 Mg Tablet 25 MG PO BID PRN PRN For Itching (Reported) Miscellaneous Medications Febuxostat (Uloric) 40 Mg Tablet 40 MG PO (Reported) Followup Plan Discharge Diet: Renal Diet Discharge Activity: Limited until seen by PCP Patient Instructions Continue all of your medications including aspirin, atorvastatin, carvedilol, amlodipine, isosorbide mononitrate, and lisinopril as previously prescribed. It is important to take your medications daily. Limit the amount of salt in your diet to 2-3 g of sodium each day. Monitor your weight daily. Continue dialysis as previously scheduled and regularly following with your wallpaper embosser helper, a kidney specialist. Follow up with cardiology, a injection specialist, within 1 week. It is important that you follow up with a polygraph examiner to discuss possible heart catheterization and possible medication changes. Follow up with your primary care provider in 1-2 weeks. Follow-up Provider: Lis Sandoval MD Follow-up with PCP in: 2 weeks Provider: Suki Garza MD Follow-up in: 1 week Attending Statement The patient was seen and examined together with Dr. Carson on 12/24/2016 and I agree with the history, exam and plan as outlined in the note above. . copies to: Vu De Leon MD; Suki Garza MD; Lis Sandoval MD, Marissa L DO Dec 24, 2016 20:10 Kip Acosta MD Dec 25, 2016 08:42
[2016-12-25] MEDS ORDERED: Isosorbide Mononitrate 30 mg ER24 Tablet PO SCH (07:30)
== END 2016-12-24 18:30 | disposition home or self-care (01) | DRG 133 ==
LOC: SED 23:12 → EDBD 23:12 → PCC 12-24 01:49
PROVIDERS: ADMIT Internal Medicine; ATTEND Internal Medicine
DX: J96.01 Acute respiratory failure with hypoxia (principal); N18.6 End stage renal disease; I50.21 Acute systolic (congestive) heart failure; I12.0 Hypertensive chronic kidney disease with stage 5 chronic kidney disease or end stage renal disease; M10.9 Gout, unspecified; D63.1 Anemia in chronic kidney disease; R73.9 Hyperglycemia, unspecified; I25.10 Atherosclerotic heart disease of native coronary artery without angina pectoris; Z87.891 Personal history of nicotine dependence; Z99.2 Dependence on renal dialysis; K21.9 Gastro-esophageal reflux disease without esophagitis

== ENCOUNTER 2017-01-02 01:07 | Inpatient (IN) | payer OTHER ==
[~2017-01-02] VITALS: Ht 172.7 cm; Wt 73.0 kg
[2017-01-02] VITALS (15 sets, daily range): BP systolic 119–136; BP diastolic 71–88; PULSE 80–98; RESP 12–22; O2SAT 95–100
[2017-01-02] MEDS ORDERED: 0.9% Sodium Chloride 1,000 ML IV ONE ×2 (06:27→20:25)
[2017-01-02 11:36] LABS: EOSINOPHILS % (AUTO) 0 % (0-5); Mean Corpuscular Hemoglobin 29.4 pg (27.0-35.0); Mean Corpuscular Volume 90.8 fL (81-100); Platelet Count 179 bil/L (150-400)
[2017-01-02 11:56] LABS: INR 1.04 ratio
[2017-01-02 12:09] LABS: BASOPHILS % (AUTO) 0 % (0-3); MONOCYTES % (AUTO) 7 % (4-12); NEUTROPHILS % (AUTO) 80 % (40-74)
--- NOTE | 2017-01-02 12:19 | NUR ---
[facility] Patient admitted to [facility] bed 5 at 1100. Patient C/O 0.5/10 gout pain in foot. is waiting in the car. On admit patient stated he had not eaten since [place]. After patient prepped for procedure he stated he ate "a square of chocolate" at 0930. MD and quality lab assoc notified. Procedure will be delayed. HL X 2 were placed and labs obtained. Phone consent verified, initialed and witnessed. History and medications reviewed. Pre-procedure teaching done and questions answered.
[2017-01-02] MEDS ORDERED: Heparin 1,000 Units/500 mL NS Premix IV ONE (14:43)
[2017-01-02] MEDS ORDERED: Heparin 5,000 Units/500 mL NS Premix IV ONE (14:43)
[2017-01-02] MEDS ORDERED: Ondansetron 2 mg/mL 2 mL Inj ONE (15:03)
[2017-01-02] MEDS ORDERED: fentaNYL-PF 50 mCg/mL 2 mL Inj ONE (15:04)
[2017-01-02] MEDS ORDERED: 0.9% Sodium Chloride 50 ML ONE (15:41)
[2017-01-02] MEDS ORDERED: Polyethylene Glycol (PEG) 17 Gm Powder PO PRN (18:50)
[2017-01-02] MEDS ORDERED: Atropine 1 mg/10 mL (Code) Syringe IVPUSH PRN ×2 (18:50→20:05)
[2017-01-02] MEDS ORDERED: Alum-Mag Hydrox-Simeth 30 mL Suspension PO PRN (18:50)
[2017-01-02] MEDS ORDERED: Senna-Docusate 8.6-50 mg Tablet PO PRN (18:50)
[2017-01-02] MEDS ORDERED: Ondansetron 2 mg/mL 2 mL Inj IVPUSH PRN ×2 (18:50→20:05)
--- NOTE | 2017-01-02 20:03 | NUR ---
MIGUEL Patient return to [facility] from [facility] home [facility] at 1645. No intervention. No family at bedside. Right groin exoseal without bleeding or hematoma. Pedal pulses present. Patient denies pain. Taking PO. HNV. Transferred by bed to room 2027 at 1940. Report to receiving RN.
[2017-01-02] MEDS ORDERED: HYDROcodone-APAP 5-325 mg Tablet PO PRN (20:05)
[2017-01-02] MEDS ORDERED: Sodium Chloride LOK Flush 10 mL Syringe IVFLUSH PRN (20:05)
[2017-01-02] MEDS ORDERED: 0.9% Sodium Chloride 250 ML BOLUS IV PRN (20:05)
--- NOTE | 2017-01-02 20:16 | CONS ---
[address] [address] CONSULTATION REPORT PATIENT: KYA VEGA : 1975 MR#: [id number] ADMIT: 01/02/2017 JOB ID: [id number] DATE OF SERVICE: 01/02/2017 CARDIOLOGY CONSULTATION: CHIEF COMPLAINT: Chest pain. HISTORY OF PRESENT ILLNESS: The patient is a delightful 41-year-old man that came in for elective cardiac catheterization after he was diagnosed with cardiomyopathy and had abnormal stress test earlier this month. Cardiac catheterization unfortunately demonstrated three-vessel disease involving proximal LAD, proximal circumflex artery, and long 99.9% stenosis of the mid right coronary artery. As a result he is going to be hospitalized and then transferred for surgical revascularization. At this moment in time, patient is pain free. The patient has been feeling unwell with chest discomfort and fatigue and dyspnea on exertion since August 2016. At that time he was residing in the [facility]. He was feeling worse and worse and worse in terms of the chest pain and worsening shortness of breath. He was treated by a doctor in the [facility] with medical therapy but was not offered invasive therapy at that time. He felt that things were going the wrong way so he made the decision to come from the [facility] back to the [facility]. He made that decision in October 2016. He flew from the [facility] back to the [facility] and two days later he was hospitalized at [facility] for acute decompensated heart failure. He was found to have end-stage renal disease and was started on hemodialysis. He had an echocardiogram which demonstrated an ejection fraction of 35% with global hypokinesis. He was discharged home on medical therapy. He was doing okay throughout the month of November and then unfortunately was hospitalized on December 09, 2016 with what appears to be TIA. He had brief neurologic deficit where he lost the ability to speak. It lasted several hours and resolved on its own. Then unfortunately he was hospitalized December 20 through December 21, 2016 for chest pain at rest. It started at 2 a.m. on December 20; he was in bed and was associated with dizziness. It was improved by sublingual nitroglycerin. It lasted about 30 minutes. It was nonradiating, not associated with nausea. The patient by the time I saw him already had a pharmacologic stress test with myocardial perfusion imaging. It showed large size severe intensity fixed inferior perfusion defect, most likely due to completed inferior infarct, but breast attenuation artifact cannot be definitively excluded. By nuclear stress testing he had moderately reduced LV systolic function with ejection fraction of 34%. Echocardiogram performed in [facility] where he was from November 15 through November 20 showed global hypokinesis with ejection fraction of 35%. I offered the patient cardiac catheterization, but he declined at that time and wanted to go home because he had an important function to attend. We made arrangements for outpatient cardiac catheterization at that time. Unfortunately he bounced back with chest pain December 24, 2016. Once again it started at rest at 8 p.m. on December 24 and it was pressure-like in nature, then progressed to sharp pain. He said that burping and a bowel movement helped the pain go away. Then an hour later it recurred and was radiating to his left arm. It was associated with diaphoresis and he says it was similar to what he experienced in the [facility] in August 2016. His troponin-T was minimally elevated at 0.018, which is difficult to interpret in light of end-stage renal disease. Of note, he does not have chest discomfort during hemodialysis. I contacted the patient on the phone after I learned that he bounced back December 24 and arranged for outpatient cardiac catheterization, which was done today January 02, and unfortunately demonstrated severe surgical disease. Right now the patient is pain free and he says he has been fine actually since his discharge from the emergency department. PAST MEDICAL HISTORY: 1. Membranous proliferative glomerular nephritis diagnosed in 1992 at [facility] in [place]. He had a kidney biopsy and the results actually have been faxed to us and are available in the medical record at [facility]. He dialyzes Friday, , Friday with Dr. Harp and Dr. De Leon at [facility]. 2. Hypertension. 3. Hyperlipidemia. 4. Cardiomyopathy. Echocardiogram performed at [facility] in [place] October 2016 showed EF 35% with global hypokinesis and no significant valvular abnormalities. 5. TIA. Hospitalized December 09 to December 10, 2016 at [facility] with slurred speech. Brain MRI showed no acute intracranial process and no area of acute or chronic infarct. He had both slurred speech and expressive aphasia. 6. 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 7. Coronary artery disease. He has never been cathed. He was diagnosed while living in the [facility] with his in-laws in August 2016. He was under the care of a chauffeur airport limousine in the [facility] and was treated medically which alleviated his chest discomfort. PAST SURGICAL HISTORY: Tunneled catheter placed in [facility] October 2016. FAMILY HISTORY: No family history of stroke. Mom of complications of heart failure. Dad had coronary artery disease and had a heart attack. SOCIAL HISTORY: The patient says he has never used heroin. He has never used meth and never used cocaine. He is a former smoker. He quit smoking 20 years ago. He is and his is originally from the [facility]. He lived with his , his svjcfs-ne-ods, egavne-rw-doa, and children in the [facility] until his health deteriorated, then he came back to the [facility] for medical care. He is originally from [place] but he and his made the decision to move to the [facility] because she has friends locally and it was easy for her to find employment. ALLERGIES: No known drug allergies. HOME MEDICATIONS: 1. Aspirin 81 mg daily. 2. Lipitor 40 mg daily. 3. Plavix 75 mg daily (I think this was started in the [facility] in October 2016). 4. Amlodipine 5 mg twice a day. 5. Calcium acetate 667 mg 3 times a day. 6. Carvedilol 12.5 mg twice a day. 7. Imdur 30 mg daily. 8. Lisinopril 5 mg daily. 9. Prednisone 10 mg daily. 10. Zantac 150 mg twice a day. 11. Uloric 40 mg daily. REVIEW OF SYSTEMS: He denies any bright red blood per rectum, hematuria, dysphasia, chest pain as noted above, as well as defined in history of present illness. He reports sometimes dizziness after hemodialysis. He reports pain in his legs and feet which he attributes to gout. He denies heartburn. Otherwise, 10-point review of systems is negative. PHYSICAL EXAMINATION: The patient is a really pleasant man. His vital signs are: Temperature is 36.5 degrees, pulse is 86 beats per minute, his blood pressure is 128/80, satting 98% on room air. Eyes: No scleral icterus. Head: Normocephalic, atraumatic. Neck: Supple. No carotid bruits. Heart: Normal S1, S2. No murmurs. Lungs are clear to auscultation anteriorly. Abdomen is soft, with positive bowel sounds. No hepatosplenomegaly. Extremities: Warm, well perfused. No clubbing, cyanosis, or edema. Skin shows no rashes or lesions. 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 LABORATORIES: Reviewed. His hematocrit is 34%. White count 11.9, platelet count 179, 80% neutrophils, 9% lymphocytes, 7% monocytes. He has some immature forms as well, 2% metamyelocytes and 1% myelocytes. This is a chronic finding for him. His most recent troponin-T was checked December 24 was 0.018. ProBNP was greater than 70,000, which is the upper limit of normal. Cardiac catheterization showed severe three-vessel disease and is dictated separately. Echocardiogram ordered and pending. Most recent EKG performed December 24, 2016 showed normal sinus rhythm. Heart rate was 97 beats per minute. Normal axis. No left ventricular hypertrophy. There was nonspecific [address]-depressions in leads V4, V5, V6. There is a Q-wave in lead III but no Q-wave in II and aVF. There is possible left atrial enlargement. EKG has been has been ordered. ASSESSMENT AND PLAN: In summary this is a delightful 41-year-old man. He has serious cardiovascular issues with three-vessel disease and cardiomyopathy, presumably ischemic, with ejection fraction of about 30%-35% based on most recent echocardiogram in October 2016 at [facility] in [place]. 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 As based on the echocardiogram at [facility] there was no evidence of RV dilation. Under normal circumstances he would benefit from surgical revascularization. I discussed the case with an interventional colleague and they did not feel that he would be a good interventional candidate as the technical issues with his surgical revascularization include the following specific for challenges: 1. He is on Plavix, so the surgery had to be delayed for about five days until Plavix is out of his system and he can be safely operated on to minimize the risk of bleeding. 2. He is on chronic prednisone for tophaceous gout. Ideally that medication should be weaned off if possible to minimize the risk of the subpar wound healing. 3. The patient also is a hemodialysis patient. We have to coordinate his hemodialysis with Dr. Harp and also with the doctors in [place]. Hemodialysis contributes to the increased risk of morbidity and mortality during surgery. 4. He has a difficult social situation. He recently moved to the [facility] from the [facility]. He is new to the area. He does not have a whole lot of social support but luckily his is the faithful friend for him and she has a friends who are able to assist him as well. 5. Additionally there is a special challenge where there is a questionable viability of the right coronary artery. I think the performance characteristics of nuclear testing are subpar and quit easily yield a false negative viability, when in fact that territory could be viable. He is not a great candidate for a cardiac MRI because he is at risk for gadolinium-induced nephrogenic systemic fibrosis (nephrogenic fibrosing dermopathy), so I think that is something that may best be handled by just bypassing the right coronary artery and see if that territory improves because we cannot reliably prove whether or not the territory is viable. This patient is an extremely challenging individual. Additionally there is an issue of the small fistula that connects his left main and his pulmonary artery. I do not think it is hemodynamically significant and I do not necessarily think it needs to be treated during his surgical revascularization. To facilitate his surgical revascularization, we will hold his Plavix. We will continue all his other medications including prednisone for now. It can be gradually weaned. He has been on this medication for a long time, so we certainly do not want him to get adrenal insufficiency by weaning it too quickly. I anticipate starting him on heparin tomorrow because in my opinion that right coronary artery lesion is unstable and if we withhold him from Plavix we certainly do not want that vessel to close and cause an ST-elevation SD. I had a detailed meeting with the patient about the results of his cardiac catheterization. He voiced understanding. His was not available and I had a detailed consultation with Dr. Gosia Alcala and I appreciate her expertise. Anticipate transfer to [facility] tomorrow. Thank you very much for the opportunity to evaluate him.
[2017-01-02] MEDS ORDERED: hydrOXYzine Pamoate 25 mg Capsule PO PRN (23:35)
[2017-01-02] MEDS ORDERED: Famotidine 10 mg/mL 2 mL Inj IVPUSH ONE (23:35)
[2017-01-03] VITALS (7 sets, daily range): BP systolic 101–113; BP diastolic 64–75; PULSE 65–80; RESP 16–18; O2SAT 97–99
--- NOTE | 2017-01-03 00:03 | PCM.HPMED ---
Subjective Date of Service Jan 02, 2017 Primary Provider: Admitting Physician: Primary Care Physician: Lis Sandoval MD Attending Physician: Suki Garza MD Chief Complaint: intermittent chest pain/SOB, now with multivessel CAD in [employer] HISTORY was OBTAINED FROM PATIENT / MEDITECH NOTES History of present illness 41y m here for elective cath, evaluated 3x in last 2 weeks, last discharged 2016 due to other obligations after SOB/chest pain subsided w/ elective cardiac cath performed today demonstrating multiple vessel disease requiring CABG, pending transfer to [facility] Dr. Alcala cardiothoracic surgeon who will be admitting tomorrow. He has been on plavix therefore non-op for another [address] Garza spoke with cardiothoracic surgeon. post cath, VSS, groin entry site dressing dry Review of Systems - none of the following - F/C/sick contact / wt change/ CONNER / lightheaded / dizziness / sob / cough / cp / acid reflux / n/v/diarrhea / bleeding/bruising / leg swelling / change in voiding / yeast infections / rash ambulates FAMILY HX CHF CAD/ME SOCIAL HX former smoker, ETOH social MEDICATIONS Amlodipine 5mg BID ASA 81mg daily Atorvastatin 40mg daily Calcium acetate 1300mg TID Calcium carbonate/Vitamin D - 600/400 Carvedilol 12.5mg BID Plavix 75mg daily Isosorbide mononitrate 30mg daily Lisinopril 5mg daily Ranitidine 150mg daily Febuxostat 40mg daily Prednisone Past Medical/Surgical HX ESRD on HD started 10/2016 Hereditary kidney disease Hypertension Gout, pending 1st rheum visit after Cardiac procedures CAD with ME August 2016 cardiomyopathy EF 35% Allergies Coded Allergies: No Known Allergies (Unverified , 12/09/16) PMH Social History Hx Alcohol Use: Yes Alcoholic Drinks Per Day: rare Hx Substance Use: No Hx Tobacco Use: Yes Smoking Status: Former Smoker Exam Vital Signs Vital Sign - Last Date Time Temp Pulse Resp B/P Pulse Ox O2 Delivery O2 Flow Rate FiO2 01/02/17 22:48 89 16 119/75 97 Room Air 01/02/17 11:11 36.5 Lab and Diagnostics Labs Exam on admission on RA NAD A and O x 3 mood affect WNL NC/AT no icterus no injected eyes EOMI PERRL /no pharyngeal lesions/ no oral lesions / hearing intact Supple neck CTAB equal chest rise / no accessory muscle use / speaks in full sentences / no rrw RRR S1 S2 / no mrg / 2+ radial pulses Soft nt nd + BS no hepatosplenomegaly No edema no cyanosis no ecchymosis of lower extremities No rash / no jaundice BOJORQUEZ port right chest wall right groin dressing d/c/i EKG SR Trop mildly elevated Result Diagram: 01/02/17 1133 01/02/17 1133 Assessment & Plan Active issues and reason for admission Significant Multi-vessel CAD, obs status, transfer to [facility] with Dr. Alcala cardiothoracic surgeon accepting, and failure of closure device at the site of groin entry --75% proximal LAD, 75% proximal Lcx, long 99.9% stenosis mid RCA --cardiac medications per Dr. Garza --continue to hold plavix ESRD --Dr. Garza to discuss w/ Loyd re: early HD tomorrow prior to transfer for CABG given contrast load w/ cardiac cath today hyperglycemia --contributory prednisone for gout flares --HbA2c 6.1% on 12/10/2016 leukocytosis, improved from last admission --monitor, no source/symptoms of infection --contributory prednisone jessie Chronic issues known prior to admission, present on admission ESRD on HD started 10/2016 Hereditary kidney disease Hypertension Gout, pending 1st rheum visit after Cardiac procedures CAD with ME August 2016 cardiomyopathy EF 35% GERD --resume home meds Diet cardiac DVT prophylaxis prevent hemorrhaging from cath entry site, scd, ambulate Code full Disposition OBS status Assessment and plan were discussed with patient Gallito Hahn MD Jan 02, 2017 23:38
--- NOTE | 2017-01-03 00:10 | NUR ---
Transfer Pt on unit at 1945 in bed, on bedrest until 2099. VSS. Pt A&Ox3, denies pain. Groin site assessed with MIGUEL RN, puffy, but soft to palpation, dressing CDI. see flowsheet for full assessment
[2017-01-03] MEDS: Sodium Chloride LOK Flush 10 mL Syringe IVFLUSH SCH ×2 (00:26→07:56)
[2017-01-03 04:34] LABS: Mean Corpuscular Hemoglobin 29.2 pg (27.0-35.0); Mean Corpuscular Volume 93.2 fL (81-100); Platelet Count 140 bil/L (150-400)
[2017-01-03 05:07] LABS: BASOPHILS % (AUTO) 0 % (0-3); EOSINOPHILS % (AUTO) 1 % (0-5); MONOCYTES % (AUTO) 9 % (4-12); NEUTROPHILS % (AUTO) 68 % (40-74)
--- NOTE | 2017-01-03 07:05 | NUR ---
Groin Site At 2030 Pt states he lifted right leg and felt immediate increased pain in site. RN to assess. Puffiness appears unchanged, but small hard area noted under gauze. 10 minutes manual pressure applied. Pt tolerated well. groin site once again soft after hold. Extended bedrest until 2300. Pt agreeable to this. Continued with Q4 hour checks with no further changes throughout shift.
[2017-01-03] MEDS ORDERED: Isosorbide Mononitrate 30 mg ER24 Tablet PO SCH (07:30)
[2017-01-03] MEDS ORDERED: Pantoprazole 40 mg ER24 Tablet PO SCH (07:30)
[2017-01-03] MEDS ORDERED: predniSONE 10 mg Tablet PO PRN (08:00)
[2017-01-03] MEDS ORDERED: predniSONE 10 mg Tablet PO SCH (08:00)
--- NOTE | 2017-01-03 09:44 | CONS ---
[address] [address] CONSULTATION REPORT PATIENT: KYA VEGA : 1975 MR#: [id number] ADMIT: 01/02/2017 JOB ID: [id number] DATE OF SERVICE: RENAL CONSULTATION: HISTORY: The patient is a very pleasant 41-year-old, white male, who is known to me from previous evaluations. He has a history of end-stage renal disease and has been on dialysis since October 2016. He was admitted for cardiac catheterization. Renal consultation is being sought for further management of his end-stage renal disease. He has a history of some type of hereditary kidney disease. He was originally biopsied when he was about 16 or 17 at the [facility] in [place]. We have tried to get old records about his biopsy results and have been unsuccessful so far. He also has a history of coronary artery disease with at least one or two myocardial infarctions in the past. He had a myocardial infarction in August 2016, while living in the [facility]. There was no intervention done because of his precarious renal status. He returned to the [facility] and was started on dialysis. His last dialysis was on Friday, day before yesterday. PAST MEDICAL HISTORY: Significant for: 1. End-stage renal disease of uncertain etiology. 2. Hypertension with hypertensive heart disease and hypertensive nephrosclerosis. 3. Coronary artery disease and myocardial infarction. 4. Ischemic cardiomyopathy with a recent ejection fraction of 35%. ALLERGIES: He is not allergic to any food or any medication. PHYSICAL EXAMINATION: Revealed a well-developed, though somewhat pale 41-year-old, white male who was alert and oriented x3, in no distress at time of my evaluation. His blood pressure was 113/75, with a pulse rate of 77. HEENT examination is remarkable for pale sclerae. Neck is supple without adenopathy, thyromegaly, or jugular venous distention. Lungs were clear to auscultation. Heart was regular and rhythmical with a soft systolic murmur. Abdomen is soft, without any tenderness, rebound, guarding, masses, or hepatosplenomegaly. Extremities do not show any evidence of clubbing, cyanosis, or edema. LABORATORY EXAMINATION: This morning his hemoglobin is 9.0, hematocrit 28.7. Red cell indices, platelet count and differential were normal. His sodium was 138, potassium 4.5, chloride 99, CO2 of 25, BUN and creatinine were 49 and 5.26. IMPRESSION: 1. End-stage renal disease -- dialysis dependent. 2. Hypertension with hypertensive heart disease and hypertensive nephrosclerosis. 3. Hereditary renal disease. 4. Coronary artery disease. RECOMMENDATION: The patient is to be dialyzed today for 4 hours on a 2 potassium bath, Revaclear MAX dialyzer, 35 bicarb, no heparin and 2 L of fluid to be removed. Once again, I would like to thank you for allowing me to participate in the care of this most pleasant, interesting patient. I will be following him closely with you.
--- NOTE | 2017-01-03 09:49 | CS94 ---
[address] [address] DIAGNOSTIC CARDIAC CATHETERIZATION PATIENT: KYA VEGA : 1975 MR#: [id number] ADMIT: 01/02/2017 JOB ID: [id number] SERVICE DATE: 01/02/2017 PATIENT PRESENTATION: The patient has cardiomyopathy and abnormal stress test. 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 PROCEDURES PERFORMED: 1. Right heart catheterization with hemodynamic measurements. 2. Left heart catheterization-selective coronary angiograms. 3. Right common femoral artery vascular access under ultrasound guidance. 4. Closure device with ExoSeal. METHOD: Following informed consent, the 6-Chadian sheath was placed in the right common femoral artery. Sheath placement was confirmed via femoral angiogram. At this point in time, JL4 and JR4 catheters were used to engage left main and right coronary artery ostia respectively. Hand injection craniocaudal angulation was used to obtain selective coronary angiograms. All exchanges were performed over a wire. Pigtail was advanced in the left ventricle. Left ventricular end-diastolic pressure was too high to safely allow for ventriculogram. Pigtail was pulled out of the left ventricle into the aorta under continuous hemodynamic monitoring with no evidence of aortic stenosis noted. During the cardiac catheterization, I incidentally noted a shunt connecting the left main and pulmonary artery so this was a fistula and I was interested in exploring the hemodynamic consequences of that fistula. The patient was awake and I consented him on the table verbally for a right heart catheterization. So, I obtained 8-Chadian sheath access into the right common femoral vein. I advanced the [place]-Jenna catheter into the right pulmonary artery and we did cardiac output via VENESSA and thermodilution method. At that point in time, O2 saturation was obtained in various positions including pulmonary artery, right ventricle, right atrium, IVC. When I tried to advance the catheter into the SVC, unfortunately the patient developed atrial fibrillation and this portion of procedure was aborted. ExoSeal was used to obtain closure and there were no complications immediate postprocedure. FINDINGS: Coronary angiogram: Left main is a normal caliber vessel. It gives rise to LAD, circumflex and ramus intermedius. There are no obstructive lesions seen in the left main. There is no dampening on engagement and an excellent blow back. Left anterior descending is a wrap-around vessel. Unfortunately it demonstrates a 75% proximal LAD lesion immediately prior to the first septal gum remover. LAD gives rise to a first small diagonal branch and multiple septal perforators. Circumflex is a nondominant vessel. It gives rise to first OM, a medium size vessel, medium-sized second OM and then travels in the AV groove as a diminutive vessel. there was a 75% proximal circumflex lesion immediately prior to the first obtuse marginal branch. Otherwise, no obstructive lesions are seen. Ramus intermedius is a large vessel. No obstructive lesions are seen. Right coronary artery is a severely diseased vessel. It demonstrates a 99% long tubular lesion in the midportion of the vessel. Additionally there appears to be some heavy calcification versus thrombus in the more proximal portion of the right coronary artery. It is a dominant vessel which gives rise to PDA and two posterior lateral branches. VASCULAR ACCESS: Right common femoral artery gives rise to SFA and profunda. There is no evidence of contrast extravasation or dissection. The sheath enters the right common femoral artery at the 50th percentile conrado of the femoral head. There is no peripheral arterial disease noted. INCIDENTAL FINDINGS: There is a tortuous fistula connecting the left main and the pulmonary artery. It is appreciated on multiple coronary angiograms. RIGHT HEART CATHETERIZATION: Right atrial pressure is 10 mmHg. Right ventricular pressure is 55/5 with right ventricular end-diastolic pressure of 10 mmHg. Right pulmonary artery pressure is 55/25. Wedge is 25 mmHg. Left ventricular end-diastolic pressure is 25 mmHg and there is no evidence of aortic stenosis based on pullback. The pulmonary artery saturation was 67%. Right ventricular saturation 64%. Right atrial saturation 64%. There is no evidence of aortic stenosis based on pullback. Cardiac output based on thermodilution and VENESSA method was 6.6 L/minute. IMPRESSION: 1. Hemodynamically significant two-vessel disease involving proximal LAD, proximal circumflex and mid right coronary artery. 2. Elevated filling pressure. Patient has end-stage renal disease and was just dialyzed yesterday. 3. Elevated pulmonary artery pressure in the setting of high left ventricular end-diastolic pressure. 4. 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 PLAN: 1. The patient will be referred for coronary artery bypass graft surgery. He consents to have surgery. His case has been discussed with Dr. Ceci Alcala of [facility]. The patient prefers to go there and I really appreciate Dr. Alcala's expertise. 2. We will stop his Plavix which was actually initiated in the [facility] in August 2016 when he started feeling poorly. 3. We will work on weaning his prednisone in anticipation of surgery. 4. Will start him on heparin as soon as his groin heals because I think the plaque in his right coronary artery is unstable. 5. We will obtain repeat echocardiogram since prior diagnostic was done in [facility] and the images are not available for review. 6. Will facilitate transfer to [place] and facilitate his hemodialysis prior to transfer. Thank you very much for the opportunity to evaluate this patient. KETAN
--- NOTE | 2017-01-03 11:00 | NUR ---
Dialysis/R Groin and Ambulation/Transfer Pt. left room 2027 PCC to room 243 on [facility] for dialysis/ Pt. VS stable, no C.o pain, CP, or SOB. Transfer report given to [facility] RN. Prior to leaving to dialysis Pt. ambulated to the bathroom and back to bed. Pt. stated feeling no pain, no lightheadedness or dizziness when walking. Pt. R groin site still C/D/I, soft and slight tenderness on palpation. Pt. will be transferring to [facility] after finishing dialysis at about 1530 today. Pt. will be going for a heart procedure, report was given to KP Wyman on progressive care unit at ~1320. Pt. will be going to room 410.
--- NOTE | 2017-01-03 11:54 | PCM.PNMED ---
Subjective Date of Service Jan 03, 2017 Subjective 41y m here for elective cath, evaluated 3x in last 2 weeks, last discharged 2016 due to other obligations after SOB/chest pain subsided w/ elective cardiac cath performed today demonstrating multiple vessel disease requiring CABG, pending transfer to [facility] Dr. Alcala cardiothoracic surgeon who will be admitting tomorrow. He has been on plavix therefore non-op for another [address] Garza spoke with cardiothoracic surgeon. post cath, VSS, groin entry site dressing dry Today, he does not have chest pain or dyspnea. He feels fine. He is getting dialysis before being transferred. Exam Vital Signs Vital Sign - Last Date Time Temp Pulse Resp B/P Pulse Ox O2 Delivery O2 Flow Rate FiO2 01/03/17 08:06 37.2 77 16 113/75 99 Room Air Intake and Output 01/02/17 01/02/17 01/03/17 Cumulative From/Thru 15:00 23:00 07:00 01/02/17 11:47 - 01/03/17 06:55 Intake Total 848 ml 848 ml Output Total 550 ml 550 ml Balance 298 ml 298 ml Intake Oral 775 ml 775 ml IV Total 73 ml 73 ml Output Urine Total 550 ml 550 ml Exam General: No acute distress, well-developed, well-nourished, appropriately interactive HEENT: Normocephalic, atraumatic. External ears without defect. Pupils equal, round, and reactive to light and accommodation. Anicteric sclerae, moist conjunctivae, and no lid lag. Oropharynx free of erythema and cobble stoning with moist mucosa. Neck: Supple with full range of motion. No jugular venous distension. No bruits. No lymphadenopathy or thyromegaly. Cardiovascular: Regular rate and rhythm with no murmurs, rubs, or gallops appreciated Pulmonary: Nasal cannula in place. Clear to auscultation bilaterally with no crackles, wheezes, or rhonchi. Normal respiratory effort with no use of accessory muscles. Abdomen: Bowel tones present. Soft, nontender, nondistended. No hepatosplenomegaly or masses appreciated. Extremities: No clubbing, cyanosis, edema, or lymphadenopathy appreciated. Skin: Normal temperature, turgor, and texture; no rash, ulcers, or subcutaneous nodules appreciated. Neurological: Cranial nerves grossly intact. Normal muscle strength, tone, and bulk. Reflexes, coordination, and sensory function within normal limits. No known gait impairment. Psychiatric: Normal mood and affect. Alert and oriented to person, place, and time. Lab and Diagnostics Result Diagram: 01/03/1741901/03/17419 Assessment & Plan Active issues and reason for admission Significant Multi-vessel CAD, obs status, transfer to [facility] with Dr. Alcala cardiothoracic surgeon accepting, and failure of closure device at the site of groin entry --75% proximal LAD, 75% proximal Lcx, long 99.9% stenosis mid RCA --cardiac medications per Dr. Garza --continue to hold plavix ESRD --Dialysis today prior to transfer hyperglycemia --contributory prednisone for gout flares --HbA2c 6.1% on 12/10/2016 leukocytosis, improved from last admission --monitor, no source/symptoms of infection --contributory prednisone jessie Chronic issues known prior to admission, present on admission ESRD on HD started 10/2016 Hereditary kidney disease Hypertension Gout, pending 1st rheum visit after Cardiac procedures CAD with [place] August 2016 cardiomyopathy EF 35% GERD --resume home meds Diet cardiac DVT prophylaxis prevent hemorrhaging from cath entry site, scd, ambulate Code full Disposition OBS status Assessment and plan were discussed with patient AlliJayde Tian DO Jan 03, 2017 11:54
--- NOTE | 2017-01-03 13:36 | DRSVH ---
[facility] [address] [place] [address] Echocardiogram Report Name: KYA VEGA Study Date: 01/03/2017 Height: 68 in Hospital Exam Location: [facility] Weight: 161 lb Gender: Male BSA: 1.9 m2 : 1975 Age: 41 yrs BP: 104/67 mmHg Reason For Study: CHEST PAIN Ordering Physician: Performed By: Max Hernandez Interpretation Summary The left ventricle is mildly dilated. The ejection fraction is estimated to be 30-35%. There has been no significant change in LV EF since the previous study. Wall motion abnormalities as stated below. The right ventricle is normal size. The right ventricular systolic function is normal. There is mild to moderate mitral regurgitation. Compared to the prior echo study, there has been an increase in the severity of mitral regurgitation. Procedure: A two-dimensional transthoracic echocardiogram with color flow and Doppler was performed. The study quality was technically good. Comparison is made with the echocardiogram of 11/13/16. The patient was in normal sinus rhythm during the exam. Left Ventricle: The left ventricle is mildly dilated. Septal thickness is within normal limits; posterior wall is mildly increased in thickness. There is no thrombus. A false chord is noted (normal variant). The ejection fraction is estimated to be 30-35%. There has been no significant change since the previous study. There is inferior wall akinesis. There is basal anteroseptal wall severe hypokinesis. There is mid anteroseptal wall severe hypokinesis. There is basal inferoseptal wall akinesis. There is mid inferoseptal wall akinesis. There is anterior wall moderate hypokinesis. There is proximal mid posteriolateral wall severe hypokinesis. Compared to the prior exam, the septal wall motion abnormality has increased in severity. There is apical hypokinesis. Spectral Doppler of the mitral valve shows a normal E/A wave ratio. Right Ventricle: The right ventricle is normal size. The right ventricular systolic function is normal. Atria: The left atrium is moderately dilated. The left atrium has mildly increased in size since the prior echo exam. Right atrial size is normal. Chiari network (normal variant) is noted. The interatrial septum is intact with no evidence for an atrial septal defect. Mitral Valve: The mitral valve is normal. There is mild to moderate mitral regurgitation. Compared to the prior echo study, there has been an increase in the severity of mitral regurgitation. Aortic Valve: The aortic valve is normal in structure and function. No aortic regurgitation is present. Tricuspid Valve: The tricuspid valve is normal. There is trace tricuspid regurgitation. Pulmonary artery pressures cannot be estimated because of the lack of a measurable TR jet velocity. Pulmonic Valve: The pulmonic valve is not well visualized. There is trace pulmonic regurgitation. Great Vessels: The aortic root is normal size. The ascending aorta is mildly enlarged. The pulmonary artery is normal size. The IVC is of normal diameter and collapses greater than 50% with a sniff. This suggests a low right atrial pressure of 3 mm Hg. Pericardium/ Pleura There is a trivial pericardial effusion noted. There are no echocardiographic indications of cardiac tamponade. There is no pleural effusion. MMode/2D Measurements & Calculations LVIDd: 5.8 cm RA long axis: 5.7 cm LVOT diam LVIDs: 4.9 cm LA A2 area: 21.2 cm FS: 14.5 % LA A4 area: 25.4 cm RA area: 18.4 cm AoV Opening EPSS: 1.5 cm LA length (vol): 5.6 cm RA vol: 50.5 ml IVSd: 1.0 cm LA vol: 81.6 ml RA : 27.1 ml/m2 Ao root diam LVPWd: 1.3 cm LA vol index asc Aorta Diam: 3.5 cm IVC diam: 1.8 cm EDV(MOD-sp2) LV rasheed. diameter/BSA LV sys. diameter/BSA RVD1 (basal) : 159.2 ml (cm/m^2): 3.1 (cm/m^2): 2.6 : 3.9 cm TAPSE: 2.2 cm Doppler Measurements & Calculations Ao V2 max: 110.8 cm/secMV E max carlos MV E/A: 1.2 PA V2 max Ao max P.9 mmHg : 67.9 cm/sec Med Peak E' Carlos : 88.4 cm/sec Ao mean P.0 mmHg MV A max carlos PA mean PG LVOT Max Carlos : 56.2 cm/sec E/E' med: 17.4 : 1.7 mmHg : 97.5 cm/sec Lat Peak E' Carlos RADHA(I,D): 3.8 cm E/E' lat: 8.0 sev ratio: 0.81 E/e' average MV A dur: 0.12 sec MV dec time: 0.16 sec Ao V2 mean LV V1 max PG PA V2 mean : 81.6 cm/sec : 63.1 cm/sec Ao V2 VTI: 24.0 cmLV V1 VTI: 19.3 cm PA pr(Accel) : 24.1 mmHg RADHA(V,D): 4.1 cm2 RADHA indexed to BSA (cm^2/m^2): 2.0 Reading Physician:JAMISON
--- NOTE | 2017-01-03 15:39 | NUR ---
Dialysis note: S/P Echo. 4 hrs tx. 2000 ml net UF. Right catheter, dsg changed, no s/s of infection noted. Pls see DTR for VS details. Qb 400. No heparin given. O2 @ 2L via NC on. Tolerated tx, slept at intervals. Catheter flushed, heparin dwelled and secured.
--- NOTE | 2017-01-03 16:11 | NUR ---
Pt transfer: Pt completed dialysis treatment without issues. Ambulance here to transport pt to [facility]. Pt appears stable at time of transfer. Report and paperwork given to paramedics. Tele monitor removed and monitoring tech aware.
--- NOTE | 2017-01-03 17:18 | PCM.DC.MED ---
Discharge Summary Date of Service Jan 03, 2017 Dates of Hospitalization Date of Hospital Admission Jan 02, 2017 at 19:25 Date of Discharge: Jan 03, 2017 Providers: Admitting Physician: Suki Garza MD Primary Care Physician: Lis Sandoval MD Attending Physician: Suki Garza MD Diagnosis at Time of Discharge Diagnosis at Time of Discharge Significant Multi-vessel CAD ESRD Hyperglycemia Leukocytosis, improved from last admission ESRD on HD started 10/2016 Hereditary kidney disease Hypertension Gout CAD with [place] August 2016 cardiomyopathy EF 35% GERD Brief History Per Dr. Hahn's H&P 41y m here for elective cath, evaluated 3x in last 2 weeks, last discharged 2016 due to other obligations after SOB/chest pain subsided w/ elective cardiac cath performed today demonstrating multiple vessel disease requiring CABG, pending transfer to [facility] Dr. Alcala cardiothoracic surgeon who will be admitting tomorrow. He has been on plavix therefore non-op for another [address] Garza spoke with cardiothoracic surgeon. post cath, VSS, groin entry site dressing dry Hospital Course Significant Multi-vessel CAD, obs status, transfer to [facility] with Dr. Alcala cardiothoracic surgeon accepting, and failure of closure device at the site of groin entry --75% proximal LAD, 75% proximal Lcx, long 99.9% stenosis mid RCA --cardiac medications per Dr. Garza --continue to hold plavix ESRD --Dialysis today prior to transfer hyperglycemia --contributory prednisone for gout flares --HbA2c 6.1% on 12/10/2016 leukocytosis, improved from last admission --monitor, no source/symptoms of infection --contributory prednisone mehnazley Chronic issues known prior to admission, present on admission ESRD on HD started 10/2016 Hereditary kidney disease Hypertension Gout, pending 1st rheum visit after Cardiac procedures CAD with [place] August 2016 cardiomyopathy EF 35% GERD --resume home meds Exam Vital Signs (Last) Date Time Temp Pulse Resp B/P Pulse Ox O2 Delivery O2 Flow Rate FiO2 01/03/17 11:55 37.0 80 16 112/64 99 Room Air Exam General: No acute distress, well-developed, well-nourished, appropriately interactive HEENT: Normocephalic, atraumatic. External ears without defect. Pupils equal, round, and reactive to light and accommodation. Anicteric sclerae, moist conjunctivae, and no lid lag. Oropharynx free of erythema and cobble stoning with moist mucosa. Neck: Supple with full range of motion. No jugular venous distension. No bruits. No lymphadenopathy or thyromegaly. Cardiovascular: Regular rate and rhythm with no murmurs, rubs, or gallops appreciated Pulmonary: Nasal cannula in place. Clear to auscultation bilaterally with no crackles, wheezes, or rhonchi. Normal respiratory effort with no use of accessory muscles. Abdomen: Bowel tones present. Soft, nontender, nondistended. No hepatosplenomegaly or masses appreciated. Extremities: No clubbing, cyanosis, edema, or lymphadenopathy appreciated. Skin: Normal temperature, turgor, and texture; no rash, ulcers, or subcutaneous nodules appreciated. Neurological: Cranial nerves grossly intact. Normal muscle strength, tone, and bulk. Reflexes, coordination, and sensory function within normal limits. No known gait impairment. Psychiatric: Normal mood and affect. Alert and oriented to person, place, and time. Test 01/02/17 11:33 01/03/17 04:20 Metamyelocytes % 2% (0-0) Myelocytes % 1% (0-0) Prothrombin Time 11.1sec (8.1-12.5) Prothromb Time International Ratio 1.04ratio Troponin T 0.025ug/L (0.0-0.011) White Blood Count 7.2th/mm3 (3.8-10.1) Red Blood Count 3.08mil/mm3 (4.40-5.80) Hemoglobin 9.0g/dL (13.8-17.2) Hematocrit 28.7% (41.0-50.0) Mean Corpuscular Volume 93.2fL (81-100) Mean Corpuscular Hemoglobin 29.2pg (27.0-35.0) Mean Corpuscular Hemoglobin Concent 31.4% (32.0-37.0) Red Cell Distribution Width 19.1% (12.3-15.4) Platelet Count 140bil/L (150-400) Neutrophils (%) (Auto) 68% (40-74) Lymphocytes (%) (Auto) 17% (14-46) Monocytes (%) (Auto) 9% (4-12) Eosinophils (%) (Auto) 1% (0-5) Basophils (%) (Auto) 0% (0-3) Band Neutrophils % 5% (1-5) Sodium Level 138mEq/L (134-144) Potassium Level 4.9mEq/L (3.5-5.2) Chloride Level 99mEq/L (97-108) Carbon Dioxide Level 25mmol/L (18-29) Blood Urea Nitrogen 49mg/dL (6-24) Creatinine 5.26mg/dL (0.76-1.27) Estimat Glomerular Filtration Rate 13mL/min (>59) Glucose Level 142mg/dL (60-99) Calcium Level 7.9mg/dL (8.5-10.1) Discharge Medications Discharge Medications Amlodipine (Amlodipine) 5 Mg Tablet 5 MG PO BID (Reported) Atorvastatin (Lipitor) 40 Mg Tablet 40 MG PO DAILY (Reported) Calcium Acetate (Calcium Acetate) 667 Mg Capsule 1,334 MG PO TID (Reported) Calcium Carbonate/Vitamin D3 (Calcium 600 + Vit D3 400 Tab) 600 Mg-400 Tablet 1 EACH PO DAILY (Reported) Carvedilol (Carvedilol) 12.5 Mg Tablet 12.5 MG PO BID (Reported) Clopidogrel (Clopidogrel) 75 Mg Tablet 75 MG PO DAILY (Reported) Isosorbide MN ER (Isosorbide MN ER) 30 Mg Tab.er.24h 30 MG PO DAILY (Reported) PT TAKES AT LUNCH Lisinopril (Lisinopril) 5 Mg Tablet 5 MG PO DAILY Prescribed by: KLAUS HERNANDEZ, Prednisone (PredniSONE) 10 Mg Tablet 10 MG PO DAILY (Reported) taper Ranitidine (Ranitidine) 150 Mg Capsule 150 MG PO HS (Reported) hydrOXYzine Hcl (HydrOXYzine Hcl) 25 Mg Tablet 25 MG PO HS (Reported) Miscellaneous Medications Febuxostat (Uloric) 40 Mg Tablet 40 MG PO (Reported) Followup Plan Disposition: [facility] Time spent 40 minutes Attending Statement Patient seen and examined with house staff. Agree with all attached documentation. Lior Bunn Jan 03, 2017 17:18 Kristian Gray MD Jan 03, 2017 18:16
== END 2017-01-03 16:00 | disposition short-term general hospital (02) | DRG 286 ==
LOC: SOUO 01:07 → PCC 19:25 → SOUO 19:25 → MOC 19:25 → UNDOFXSDCSVC 01-03 12:38 → PCC 01-03 12:38
PROVIDERS: ADMIT Internal Medicine; ATTEND Internal Medicine
PROC: 4A1239Z Monitoring of Cardiac Output, Percutaneous Approach (ICD-10-PCS; principal; 2017-01-03)
PROC: 4A023N8 Measurement of Cardiac Sampling and Pressure, Bilateral, Percutaneous Approach (ICD-10-PCS; 2017-01-03)
PROC: B2101ZZ Fluoroscopy of Single Coronary Artery using Low Osmolar Contrast (ICD-10-PCS; 2017-01-03)
PROC: 5A1D00Z (ICD-10-PCS; 2017-01-03)
DX: I25.5 Ischemic cardiomyopathy (principal); N18.6 End stage renal disease; N07 Hereditary nephropathy, not elsewhere classified; I13.11 Hypertensive heart and chronic kidney disease without heart failure, with stage 5 chronic kidney disease, or end stage renal disease; I48.91 Unspecified atrial fibrillation; I25.10 Atherosclerotic heart disease of native coronary artery without angina pectoris; E78.5 Hyperlipidemia, unspecified; M1A.9XX1 Chronic gout, unspecified, with tophus (tophi); R73.9 Hyperglycemia, unspecified; T38.0X5A Adverse effect of glucocorticoids and synthetic analogues, initial encounter; Z87.891 Personal history of nicotine dependence; Z82.49 Family history of ischemic heart disease and other diseases of the circulatory system; Z99.2 Dependence on renal dialysis; Z79.82 Long term (current) use of aspirin; I25.2 Old myocardial infarction; Z86.73 Personal history of transient ischemic attack (TIA), and cerebral infarction without residual deficits

== ENCOUNTER → 2017-07-22 | Day surgery (SDC) | payer MEDICARE, MEDICAID ==
--- NOTE | 2017-07-16 13:18 | PCM.ANEPRE ---
Anesthesia Pre-Op Review Reason for Review: cardiomyopathy recent, recent SHARAD, pneumonia hx Anesthesia Recommendations: Proceed with Procedure Additional Comments 41 y/o male with significant comorbidities scheduled for Right radiocephalic AV fistula on 07/22/17. Patient has significant comorbidities including CAD. Last saw private tutor Dr. Fabian Garza on 06/04/17 who was made aware of his upcoming surgery at that time. She ordered a repeat Echo on 07/25/17 and wrote that if his EF was < 35% he might want to be considered for an ICD. She also reported that it would be OK for him to stop his dual antiplatelet therapy 6 months after his SHARAD was placed at [facility]. I called Dr. Garza on the phone today and she confirmed with her directly that it is OK for the patient to go to surgery prior to his followup Echo and that it is also OK for him to stop his Brilinta on 07/17/17. The SHARAD X 2 were placed at [facility] on 01/10/17. The patient has had some symptomatic low BPs, so Dr. Garza stopped his Imdur on 06/04/17. His last echo on 04/26/17 showed an EF of 30% with mild mitral regurg. He also had a [facility] admission on 04/2017 secondary to septic shock/acute hypoxemic respiratory failure, and was ventilator dependent for 5-6 days. I tried to call the patient today but was unable to get in touch with him. This Frederic Davidson MD Jul 16, 2017 13:18
--- NOTE | 2017-07-16 13:20 | PCM.ANEPRE ---
Anesthesia Pre-Op Review Reason for Review: cardiomyopathy recent, recent SHARAD, pneumonia hx Anesthesia Recommendations: Proceed with Procedure Additional Comments 41y/o male with significant comorbidities scheduled for AV fistula placement. I spoke with his automotive technician Dr. Garza today to verify that it was OK for him to stop his Birlinta on 07/17/17 and also that he could wait to have a repeat echo after surgery on 07/25/17. She cleared him for surgery and said both were OK. He had two SHARAD placed on 01/10/[address] [place] Garza said that as long as he took his Birlinta for 6 months he could stop it prior to surgery. Echo 04/26/17 showed EF 30% with mild mitral regurg. H/o symptomatic low BP but Dr. Garza stopped in the patient's Imdur at his last appoint on 06/04/17. He was admitted on 05/03 to [facility] secondary to septic shock/acute hypoxemic respiratory failure and was ventilator dependent for 5-6 days. ESRD on dialysis. OK to proceed with surgery that can likely be done under local and sedation depending on evaluation by DOS anesthesiologist. Chart Reviewed by: Frederic Singer MD Jul 16, 2017 13:20
[~2017-07-22] VITALS: Ht 170.2 cm; Wt 89.3 kg
[~2017-07-22] MED LIST changes: +0.9% Sodium Chloride 500 ML IV ONE; +ALPR0.5T PO; -AMLO5TAB2 PO; +Bupivacaine 0.5% 50 mL Inj INFILTRATE ONE; -CALC-1034 PO; +CALC500T9 PO; -CALC667C9 PO; +CALC667T5 PO; -CARV12.52 PO; -CLOP75TA28 PO; +CeFAZolin 2 Gm/50 mL D5W Duplex Bag IV ONE; +CeFAZolin Inj 2 GM in Dextrose 5% 50 ML IV ONE; +DEX1 PO; +Dexamethasone 4 mg/mL Inj IVPUSH PRN; +EPHEDrine Sulfate 50 mg/mL Inj IVPUSH PRN; +FURO80TA83 PO; +HYDROcodone-APAP 5-325 mg Tablet PO PRN; +HYDROmorphone 1 mg/mL Inj IVPUSH PRN; +Heparin 5,000 Unit/mL Inj SUBQ ONE; -ISOS30TA4 PO; +Ketamine 10 mg/mL 20 mL Inj ONE; -LISI-571 PO; +LISI2.5T PO; +Lactated Ringer's 500 ML IV PRN; +METO-369 PO; +MetoCLOpramide 5 mg/mL 2 mL Inj IVPUSH PRN; +NITR0.4T38 SL; +OMEP20TA24 PO; +Ondansetron 2 mg/mL 2 mL Inj IVPUSH PRN; +Ondansetron 2 mg/mL 2 mL Inj ONE; -PRE10 PO; +Papaverine 30 mg/mL 2 mL Inj IV ONE; +Phenylephrine 10,000 mCg/mL Inj IVPUSH PRN; +Propofol 10,000 mCg/mL 20 mL Inj ONE; -RANI150C4 PO; +TICA90TA PO; +fentaNYL-PF 50 mCg/mL 2 mL Inj IVPUSH PRN; +fentaNYL-PF 50 mCg/mL 2 mL Inj ONE
--- NOTE | 2017-07-22 07:55 | PCM.HPANE ---
Patient Data Surgeon Admitting Provider: Attending Provider:Juan Gray MD Primary Care Physician:Lis Sandoval MD Other Provider:Tylor Constantino Anesthesia Reason for Visit End Stage Renal Failure Ht/WT & BMI Height (Feet): 5 Height (Inches): 7 Weight (Kilograms): 85.7 Body Mass Index 29.00 Allergies Coded Allergies: No Known Allergies (Unverified , 07/15/17) Past Anesthesia History Anesthesia History: Denies:: Abnormal Airway, Anesthesia Reactions (sedation for heart stents,), Difficult Intubation, Fam Anesthesia Reaction Diabetes History Hx Diabetes?: Yes Type of Diabetes: Type II Current Bedside Blood Glucose: 129 MRSA MRSA: No Medications Hypertension Medication: Yes Home Meds Incl Beta Temi: Yes Date Beta Temi Taken: Jul 21, 2017 Time Beta Temi Taken: 18:00 Reported Medications Alprazolam (Xanax)0.5 Mg Tablet0.25-0.5 Mg PO TID PRN For Anxiety Ref 0 07/15/17 Febuxostat (Uloric)40 Mg Mkbddw41 Mg PO DAILY 07/15/17 Calcium Carbonate (Tums)500 Mg Tab.chew2 Tablet PO Q6H PRN For Epigastric Distress 30 Days 07/15/17 Omeprazole Magnesium (Prilosec Otc)20 Mg Tablet.dr20 Mg PO DAILY #1 PKG Ref 0 07/15/17 Nitroglycerin SL 0.4 Mg Tab.subl0.4 Mg SL PRN For Chest Pain 07/15/17 Metoprolol Succinate ER 50 Mg Tab.er.24h50 Mg PO DAILY Ref 0 07/15/17 Lisinopril 2.5 Mg Tablet2.5 Mg PO DAILY 30 Days Ref 0 07/15/17 Furosemide (Lasix)80 Mg [place]14 Mg PO DAILY 30 Days Ref 0 07/15/17 hydrOXYzine Hcl (HydrOXYzine Hcl)25 Mg Tnsnuw86 Mg PO HS 07/15/17 Dexamethasone 1 Mg Tab2 Mg PO DAILY 07/15/17 Calcium Acetate 667 Mg Tablet2 Capsule PO TIDWM 07/15/17 Ticagrelor (Brilinta)90 Mg Hyrvwu87 Mg PO BID pt to take last dose 07/17/17 07/15/17 Atorvastatin (Lipitor)40 Mg Cjtyig72 Mg PO DAILY Ref 0 07/15/17 Aspirin 81 Mg Mcisql50 Mg PO DAILY Ref 0 07/15/17 Discontinued Reported Medications Prednisone (PredniSONE)10 Mg Bsazot43 Mg PO DAILY Ref 0 taper 12/20/16 hydrOXYzine Hcl (HydrOXYzine Hcl)25 Mg Eowyer96 Mg PO HS 12/09/16 Febuxostat (Uloric)40 Mg Zdbfub25 Mg PO 12/09/16 Clopidogrel 75 Mg Sqlwzg98 Mg PO DAILY Ref 0 12/09/16 Calcium Carbonate/Vitamin D3 (Calcium 600 + Vit D3 400 Tab)600 Mg-400 Tablet1 Each PO DAILY 12/09/16 Atorvastatin (Lipitor)40 Mg Beqiun67 Mg PO DAILY Ref 0 12/09/16 Amlodipine 5 Mg Tablet5 Mg PO BID Ref 0 12/09/16 Isosorbide MN ER 30 Mg Tab.er.24h30 Mg PO DAILY PT TAKES AT LUNCH 12/09/16 Ranitidine 150 Mg Loipwzb536 Mg PO HS Ref 0 12/09/16 Carvedilol 12.5 Mg Mkwfxr54.5 Mg PO BID Ref 0 12/09/16 Calcium Acetate 667 Mg Capsule1,334 Mg PO TID 12/09/16 Discontinued Scripts Lisinopril 5 Mg Tablet5 Mg PO DAILY #30 TABLET Prov:Paco Banks DO 12/21/16 History History of ENT Problems?: No HEENT History: Denies:: Abnormal Airway Cataracts Difficult Intubation Dysphagia Glaucoma Hearing Problem Sinus Problem TMJ Denture Type: None Teeth Condition: Broken Teeth Tooth Decay Hx of Heart Problems?: Yes Cardiovascular History: Positive for:: Chest Pain Edema (ankles) Hypertension Denies:: AICD Cardiac Surgery ([facility] 12/2016 ) Congestive Heart Failure Heart Murmur Irregular Heartbeat Pacemaker Thrombophlebitis Hx of Respiratory Problem?: Yes Respiratory History: Positive for:: Dyspnea (since i started getting HD) Hemoptysis (from being sick and coughing to much) Pneumonia (april in [place]) Denies:: Asthma COPD Chest Surgery Emphysema Oxygen Administration Tuberculosis Use of C-PAP Machine Hx Neurologic Problems?: No Neurological History: Positive for:: Dizziness (when BP goes low, ) Denies:: Alzheimer's Disease CVA Dementia Headaches Multiple Sclerosis Parkinson's Disease Seizures Hx of GI Problems?: Yes Hx of Problems?: Yes Genitourinary History: Positive for:: HX of Hemodialysis (3 x week - mon, wed , fri [place]) Denies:: Kidney Stones Urinary Tract Infection HX of Peritoneal Dialysis: No Male Hx: Denies:: Prostate Problems Scrotal Mass Testicular Surgery Skin History: Denies:: History Skin Disorders? Pressure Ulcers Hx Musculoskeletal Problems?: Yes Musculoskeletal History: Denies:: Back Injury Fibromyalgia Joint Replacement Musculoskeletal Trauma Osteoarthritis Rheumatoid Arthritis Hx of Psycho/Social Problems?: Yes Psycho Social History: Positive for:: Hx Depression Denies:: Anxiety Bipolar Disorder Suicide Attempt Hx Surgeries?: Yes (lip) Hx Any Other Health Problems?: Yes Other History: Positive for:: Hospitalization ([place]/Chest Pain, pneumonia april 2017) Denies:: Cancer Thyroid Disease History Blood Transfusions: Positive for:: Accept Blood Products? Blood Transfusions Denies:: Blood Transfuse Reaction Hx Diabetes: No Hx Alcohol Use: YesAlcoholic Drinks Per Day: 2 drinks monthlyHx Substance Use : No Smoking Status: Former Smoker Have You Smoked inLast 12 mo: Yes (occasional cigar ) Stop/Bang S-Snoring: Do You Snore Loudly: No T-Tired: feel tired, fatigued: Yes O-Obsered: Observed not breath: No P-Blood Pressure: treated: Yes B- Body Mass Index > 35 kg/m2: No A- Age over 50: No N- Neck Large Circumference: No G- Gender Male: Yes JIGAR Total Score: 3 JIGAR Risk Assessment: High Risk, =/>3 Yes JIGAR Category 4 OutPt Procedure: Yes Risk Assessment Category Category 1A: Patient has history of documented sleep apnea, and HAS NOT received any narcotic, sedative or anesthesia administration during this stay. Category 1B: Patient has history of documented sleep apnea, and HAS received any narcotic , sedative or anesthesia administration during this stay Category 2: Patient has SUSPECTED Obstructive Sleep Apnea, and HAS received any narcotic , sedative or anesthesia administration during this stay. Category 3: Patient has SUSPECTED Obstructive Sleep Apnea and HAS NOT received narcotic, sedative or anesthesia administration during this stay. Category 4: Outpatient in Procedural Areas with known sleep apnea or who screen positive for High Risk via the STOP/BANG questionnaire. Exam Exam General Appearance: Alert, Oriented X3, Cooperative, No Acute Distress HEENT/AIRWAY: MP 2 Lungs: Clear to Auscultation, Normal Air Movement Heart: Exam Unremarkable, Regular Rate/Rhythm, No Murmurs/Rubs/Gallops Meds/Labs/Diagnostics Admission Meds Current Medications Sodium Chloride (Normal Saline) 500 ml @ 10 mls/hr Q24H ONCE IV Last administered on 07/22/17t 07:41; Start 07/22/17 at 05:00; Stop 07/23/17 at 04:59 Plan Impression Patient chart reviewed, patient interviewed and anesthestic plan with risks, benefits, and alternatives discussed, and informed consent obtained. NPO per Anesth. Guidelines: Yes ASA Physical Status: ASA3 Severe Disease (chronic renal failure) Anesthetic Plan: MAC Bene/Risks/Altern/Consents: Yes HP Complete Prior to Induction: Yes Oni Rojas MD Jul 22, 2017 07:55
[2017-07-22 08:00] VITALS: BP 146/92; PULSE 81; RESP 18; O2SAT 100
[2017-07-22 12:00] VITALS: BP 123/74; PULSE 77; RESP 16; O2SAT 96
--- NOTE | 2017-07-22 13:24 | OP ---
[address] [id number] OPERATIVE REPORT PATIENT: KYA VEGA : 1975 MR#: [id number] ADMIT: 07/22/2017 JOB ID: [id number] DATE OF SURGERY: 07/22/2017 PREOPERATIVE DIAGNOSIS(ES): End-stage renal failure. POSTOPERATIVE DIAGNOSIS(ES): End stage renal failure. PROCEDURE: Right radiocephalic AV fistula. SURGEON: Juan Gray M.D. SURVEY RESEARCH PROFESSOR: Wan Zheng PA-C INDICATIONS: A 41-year-old man with end-stage renal failure secondary to diabetes. He also has history of significant coronary artery disease and has had stents. He was far enough out from his stents that he could go off Plavix for a short period of time. And after discussing options with the patient, it was elected to proceed with a right radiocephalic AV fistula. FINDINGS: He did have some mild calcific atherosclerosis of his radial artery but he had good inflow. His vein was an adequate caliber approximately 3 mm. He had good back flow from the distal radial artery. At the conclusion of the fistula, he had a palpable thrill in the vein. DESCRIPTION OF PROCEDURE: At the beginning and end of the operation, the SCOAP checklist was completed. He received deep sedation administered by Dr. Oni Rojas from anesthesia. He received local anesthesia with 1% lidocaine, 0.5% bupivacaine. Using ChloraPrep, he was prepped and draped in the usual fashion. The incision was designed and then a vertical incision was made. The radial artery was identified and controlled proximally and distally with vessel loops and small lateral branches were cauterized. The vein was then exposed with sharp dissection divided distally after placing two clips. The vein was flushed with heparinized saline. The vein had been marked to prevent torsion. It was opened on its posterior wall to create the stephenson for the anastomosis. The artery was then opened longitudinally. The anastomosis was completed with running 6-0 Prolene sutures. Bearden through the anastomosis, the vein was flushed with papaverine. The artery was first backflushed into the vein followed by forward flushing into the vein and then forward flow to the hand. There was minimal bleeding from the anastomosis at needle points that stopped spontaneously. The estimated blood loss was 10 cc. There were no apparent complications. The subcutaneous tissue was closed with interrupted 3-0 Vicryl and running subcuticular 4-0 Vicryl and Dermabond. The final sponge, needle and instrument counts were announced as correct and he was returned to the recovery room in stable condition. Critical assistance provided by Wan Zheng PA-C.
[2017-07-22 13:40] VITALS: BP 123/74; PULSE 78; RESP 18; O2SAT 98
--- NOTE | 2017-07-23 08:26 | PCM.ANEP1 ---
Post Anesthesia PACU Phase 1 Assessment Anesthetic Administered: MAC Level of Alertness: Awake, talking BOJORQUEZ's with Equal Strength: Yes Pain: No Nausea or Vomiting: No CV Function & Hydration Stable: Yes Airway Device: none Lungs: Clear to Auscultation, Normal Air Movement Dermatome Level: Full Sensation PACU Phase 2 Assessment Complications: No Follow up Care: No Patient Instructions Provided: N/A Oni Rojas MD Jul 23, 2017 08:26
== END | disposition home or self-care (01) ==
LOC: SAS 07:39
PROVIDERS: ATTEND Surgery
PROC: 031B09F Bypass Right Radial Artery to Lower Arm Vein with Autologous Venous Tissue, Open Approach (ICD-10-PCS; principal; 2017-07-22 09:45)
DX: E11.22 Type 2 diabetes mellitus with diabetic chronic kidney disease (principal); I12.0 Hypertensive chronic kidney disease with stage 5 chronic kidney disease or end stage renal disease; N18.6 End stage renal disease; I25.10 Atherosclerotic heart disease of native coronary artery without angina pectoris; I25.5 Ischemic cardiomyopathy; Z95.5 Presence of coronary angioplasty implant and graft; Z99.2 Dependence on renal dialysis; Z79.82 Long term (current) use of aspirin; Z79.02 Long term (current) use of antithrombotics/antiplatelets; Z87.891 Personal history of nicotine dependence
CPT/HCPCS: 36415; 36821; 84132; J0690; J1644; J2250; J2405; J2704; J3010; J7040